=== PATIENT | female | born 1960 | race Caucasian/White ===

== ENCOUNTER → 2018-03-05 11:42 | Outpatient (CLI) | payer BC, OTHER, SELFPAY ==
--- NOTE | 2018-03-05 | DI.MG.S_ITS ---
BILATERAL DIGITAL SCREENING MAMMOGRAM 3D/2D WITH CAD: 03/05/2018 CLINICAL: Routine screening. Comparison is made to exams dated: 07/12/2016 mammogram and 06/22/2015 mammogram - [facility]. There are scattered fibroglandular elements in both breasts. Current study was also evaluated with a Computer Aided Detection (CAD) system. No significant masses, calcifications, or other findings are seen in either breast. There has been no significant interval change. IMPRESSION: NEGATIVE There is no mammographic evidence of malignancy. A 1 year screening mammogram is recommended. This exam was interpreted at Station ID: [id number]. NOTE: For mammograms, a report in lay terms will be sent to the patient. Approximately 15% of breast malignancies will not be visualized mammographically. In the management of a palpable breast mass, a negative mammogram must not discourage biopsy of a clinically suspicious lesion. Electronically Signed By: Garret tolentino/jeyson:03/06/2018 00:12:45 letter sent: Normal Exam ACR BI-RADS Category 1: Negative [id number]
== END ==
PROVIDERS: PCP Physician Assistant; Visit Provider Physician Assistant
DX: Z12.31 Encounter for screening mammogram for malignant neoplasm of breast (principal)
CPT/HCPCS: 77063; 77067

== ENCOUNTER → 2018-10-16 09:09 | Outpatient (CLI) | payer BC, OTHER, SELFPAY ==
--- NOTE | 2018-10-16 | DI.ECHO.S_ITS ---
[place] +---------+ [facility] +---------+ : : [address] : : : : [id number] : : : : Phone: [phone] Echocardiogram Report + + :Name: GIGI JAMES Study Date: 10/16/2018 Height: 68 in : :[facility] Exam Location: IS Weight: 235 lb : : Gender: Female BSA: 2.2 m2 : :: 1960 Age: 58 yrs BP: 140/65 mmHg: :Reason For Study: Ascending aorta Dilation/ Murmur : : Performed By: Shayna Page : :Referring: ODALYS HIDALGO : + + Interpretation Summary The ejection fraction is estimated to be 60-65%. There is no significant valvular heart disease. Compared to the prior echo report on 2017, there is no significant change. Procedure: A two-dimensional transthoracic echocardiogram with color flow and Doppler was performed. The study quality was technically adequate. Comparison is made with the echocardiogram of 07/03/2014. The patient was in normal sinus rhythm during the exam. Left Ventricle: The left ventricle is normal in size, wall thickness, and systolic function without any focal wall motion abnormalities. The ejection fraction is estimated to be 60-65%. Left ventricular wall motion is normal. Right Ventricle: The right ventricle is normal in size and function. Atria: Both atria are normal in size. There is no Doppler evidence for an interatrial shunt. Mitral Valve: The mitral valve is normal in structure and function. There is trace mitral regurgitation. Aortic Valve: The aortic valve is trileaflet. The aortic valve opens well. No aortic regurgitation is present. Tricuspid Valve: The tricuspid valve is normal in structure and function. There is a trace or physiologic amount of tricuspid regurgitation. Right ventricular systolic pressure is estimated to be 23 mmHg plus the clinically estimated CVP which cannot be estimated on this exam. Pulmonic Valve: The pulmonic valve is not well visualized. There is no pulmonic valvular regurgitation. Great Vessels: The aortic root is normal size. The ascending aorta is mildly enlarged. The pulmonary artery is not well visualized, but is probably normal size. The IVC does not appear dilated but does not appear to have respiratory collapse which suggests moderately high central venous pressure. The IVC has a measurement of 1.6 mm. Pericardium/ Pleura There is no pericardial effusion. There is no pleural effusion. MMode/2D Measurements & Calculations LVIDd: 4.2 cm Ao root diam: 3.3 cm LVIDs: 2.4 cm asc Aorta Diam: 3.8 cm FS: 43.8 % EPSS: 0.16 cm IVSd: 0.76 cm LVPWd: 0.77 cm LV palmer. diameter/BSA (cm/m^2): 1.9 LV sys. diameter/BSA (cm/m^2): 1.1 LA A2 area: 17.0 cm2 RA long axis: 4.3 cm LA A4 area: 20.1 cm2 RA area: 13.9 cm2 LA length (vol): 5.2 cm RA vol: 37.9 ml LA vol: 55.8 ml RA : 17.3 ml/m2 LA vol index: 25.5 ml/m2 IVC diam: 1.6 cm RVD1 (basal): 4.3 cm TAPSE: 2.0 cm Doppler Measurements & Calculations Ao V2 max: 148.2 cm/sec LVOT Max Elver: 105.7 cm/sec Ao V2 mean: 104.6 cm/sec LV V1 max P.5 mmHg Ao max P.8 mmHg LV V1 VTI: 21.3 cm Ao mean P.9 mmHg sev ratio: 0.73 Ao V2 VTI: 29.0 cm MV E max elver: 82.4 cm/sec TR max elver: 238.4 cm/sec MV A max elver: 89.3 cm/sec TR max P.7 mmHg MV E/A: 0.92 PA V2 max: 99.6 cm/sec Med Peak E' Elver: 5.5 cm/sec PA V2 mean: 66.5 cm/sec E/E' med: 15.1 PA mean P.0 mmHg Lat Peak E' Elver: 10.6 cm/sec PA Accel Time: 0.08 sec E/E' lat: 7.8 E/e' average: 11.4 MV dec time: 0.12 sec MV P1/2t: 35.8 msec MV P1/2t max elver: 82.6 cm/sec MVA(P1/2t): 6.1 cm2 Reading Physician:02:10 PM
== END ==
PROVIDERS: PCP Physician Assistant; Visit Provider Physician Assistant
DX: I77.810 Thoracic aortic ectasia (principal); R01.1 Cardiac murmur, unspecified
CPT/HCPCS: 93306

== ENCOUNTER → 2019-03-20 16:41 | Outpatient (CLI) | payer BC, OTHER, SELFPAY ==
--- NOTE | 2019-03-20 16:44 | DI.MG.S_ITS ---
BILATERAL DIGITAL SCREENING MAMMOGRAM 3D/2D WITH CAD: 03/20/2019 CLINICAL: Routine screening. Comparison is made to exams dated: 03/05/2018 mammogram - [facility], 07/12/2016 mammogram, and 06/22/2015 mammogram - [facility]. The tissue of both breasts is predominantly fatty. Current study was also evaluated with a Computer Aided Detection (CAD) system. No significant masses, calcifications, or other findings are seen in either breast. There has been no significant interval change. IMPRESSION: NEGATIVE There is no mammographic evidence of malignancy. A 1 year screening mammogram is recommended. This exam was interpreted at Station ID: [id number]. NOTE: For mammograms, a report in lay terms will be sent to the patient. Approximately 15% of breast malignancies will not be visualized mammographically. In the management of a palpable breast mass, a negative mammogram must not discourage biopsy of a clinically suspicious lesion. Electronically Signed By: Maria grover/jeyson:03/21/2019 13:18:54 letter sent: Normal Exam ACR BI-RADS Category 1: Negative [id number]
== END ==
PROVIDERS: PCP Physician Assistant; Visit Provider Physician Assistant
DX: Z12.31 Encounter for screening mammogram for malignant neoplasm of breast (principal)
CPT/HCPCS: 77063; 77067

== ENCOUNTER → 2020-07-10 10:32 | Outpatient (CLI) | payer BC, OTHER, SELFPAY ==
--- NOTE | 2020-07-10 | DI.MG.S_ITS ---
BILATERAL DIGITAL SCREENING MAMMOGRAM 3D/2D WITH CAD: 07/10/2020 CLINICAL: Routine screening. Comparison is made to exams dated: 03/20/2019 mammogram, 03/05/2018 mammogram - [facility], and 07/12/2016 mammogram - [facility]. The tissue of both breasts is predominantly fatty. Current study was also evaluated with a Computer Aided Detection (CAD) system. No significant masses, calcifications, or other findings are seen in either breast. There has been no significant interval change. IMPRESSION: NEGATIVE There is no mammographic evidence of malignancy. A 1 year screening mammogram is recommended. This exam was interpreted at Station ID: [id number]. NOTE: For mammograms, a report in lay terms will be sent to the patient. Approximately 15% of breast malignancies will not be visualized mammographically. In the management of a palpable breast mass, a negative mammogram must not discourage biopsy of a clinically suspicious lesion. Electronically Signed By: Jerry mccabe/jeyson:07/12/2020 08:56:37 letter sent: Normal Exam ACR BI-RADS Category 1: Negative [id number]
== END ==
PROVIDERS: PCP Physician Assistant; Referring Provider Physician Assistant; Visit Provider Physician Assistant
DX: Z12.31 Encounter for screening mammogram for malignant neoplasm of breast (principal)
CPT/HCPCS: 77063; 77067

== ENCOUNTER 2020-10-21 22:10 | Inpatient (IN) | payer OTHER, SELFPAY ==
[2020-10-21 22:26] VITALS: BP 171/74; PULSE 97; RESP 17; O2SAT 99
--- NOTE | 2020-10-21 22:57 | DI.RAD.S_ITS ---
PROCEDURE: XR CHEST 1V INDICATIONS: chest pain TECHNIQUE: One view of the chest was acquired. COMPARISON: None. FINDINGS: Surgical changes and devices: None. Lungs and pleura: Lungs are clear. No pleural effusions or pneumothorax. Mediastinum: Mediastinal contours appear normal. Heart size is normal. Bones and chest wall: No suspicious bony lesions. Overlying soft tissues appear unremarkable. IMPRESSION: No acute cardiopulmonary disease process. Dictated by: Katt Rivas MD, PhD on 10/22/2020 at 8:12 Approved by: Katt Rivas MD, PhD on 10/22/2020 at 8:12
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
[2020-10-21 23:26] LABS: Add Manual Diff / Slide Review NO; Basophils Absolute Auto 100 /uL (0-100); Basophils Percent Auto 0.4 % (0-2); Eosinophils Absolute Auto 0 /uL (0-450); Eosinophils Percent Auto 0.1 % (2-4); Hematocrit 36.8 % (36-46); Hemoglobin 11.9 g/dL (12.0-16.0); Lymphocytes Absolute Auto 1200 /uL (1100-4500); Mean Corpuscular HGB Conc 32.4 % (30-36); Mean Corpuscular Hemoglobin 28.7 PG (26-34); Mean Corpuscular Volume 88.6 fL (80-100); Monocytes Absolute Auto 1100 /uL (0-900); Monocytes Percent Auto 6.5 % (3-14); Neutrophils Absolute Auto 15100 /uL (1500-7000); Platelet Count 326 X10^3/uL (150-400); Red Blood Cell Count 4.15 X10^6/uL (4.0-5.2); Red Cell Distribution Width 14.8 % (11.6-14.8); White Blood Cell Count 17.5 X10^3/uL (4.5-11.0)
[2020-10-21] MEDS: ONDANSETRON 4 MG/2 ML INJ IV (23:32)
[2020-10-21] MEDS: ASPIRIN 81 MG CHEW TAB 324 MG PO (23:32)
[2020-10-21] MEDS: SODIUM CHLORIDE 0.9% 1,000 ML 150 ML IV (23:32)
[2020-10-21 23:35] LABS: Alanine Aminotransferase 30 IU/L (<35); Albumin 4.5 g/dL (3.5-5.0); Albumin Globulin Ratio 1.4 (1.0-2.8); Alkaline Phosphatase 74 U/L (38-126); Aspartate Aminotransferase 36 IU/L (14-36); BUN Creatinine Ratio 28.2 (6-22); Bilirubin Total 0.3 mg/dL (0.2-1.3); Blood Urea Nitrogen 29 mg/dL (7-17); Calcium 10.3 mg/dL (8.4-10.2); Carbon Dioxide 26 mmol/L (22-32); Chloride 96 mmol/L (98-107); Creatine Kinase 154 U/L (30-135); Estimated Glomerular Filt Rate 54.3 mL/min (>60); Globulin 3.3 g/dL (1.7-4.1); Glucose 191 mg/dL (80-110); HEMOLYSIS < 15 (0-50); Lipase 69 U/L (23-300); Sodium 133 mmol/L (137-145); Total Protein 7.8 g/dL (6.3-8.2)
[2020-10-21 23:42] VITALS: PULSE 90; RESP 51; O2SAT 100
[2020-10-21 23:46] LABS: Troponin I < 0.012 ng/mL (0.01-0.034)
[2020-10-21 23:50] LABS: CKMB % Relative Index 0.9 % (1.5-5.0); Creatine Kinase MB 1.45 ng/mL (<2.37)
--- NOTE | 2020-10-21 23:52 | DI.CT.S_ITS ---
PROCEDURE: CT ABDOMEN PELVIS W CON INDICATIONS: abdominal pain TECHNIQUE: After the administration of intravenous contrast, 5 mm thick sections acquired from the diaphragm to the symphysis. 5 mm coronal and sagittal reformats were acquired. For radiation dose reduction, the following was used: automated exposure control, adjustment of mA and/or kV according to patient size. COMPARISON: None FINDINGS: Image quality: Excellent. ABDOMEN: Lung bases: Lung bases are clear. 4 x 7 mm pleural based pulmonary nodule, extreme right lung base. Reference image 11/3. Heart size is normal. Trace pericardial effusion. Moderate coronary artery calcifications. Solid organs: Liver is normal in size and enhancement. Mild hepatic steatosis. Gallbladder contains multiple large gallstones. There is significant gallbladder wall thickening and edema. Findings are consistent with acute cholecystitis. Biliary system is non dilated. Pancreas enhances normally. Spleen is normal in size and enhancement. No adrenal nodules. Kidneys demonstrate normal size and enhancement, without hydronephrosis. Peritoneum and bowel: Bowel loops demonstrate normal wall thickness and caliber. Trace pelvic ascites. No free air or abscess cavity. Nodes and vessels: No retroperitoneal or mesenteric adenopathy by size criteria. Aorta and inferior vena cava are normal in size. Atherosclerotic calcification in the aorta and iliacs. Miscellaneous: No ventral hernias. PELVIS: Genitourinary: Bladder wall thickness is normal. Miscellaneous: No inguinal hernias or adenopathy. Bones: No suspicious bony lesions. No vertebral body compression fractures. Diffuse lumbar degenerative change. Canal stenosis at L4-L5. IMPRESSION: 1. Findings are highly suspicious for acute cholecystitis. 2. Coronary artery disease. 3. Mild hepatic steatosis. 4. Incidental note made of canal stenosis at L4-L5. Comment: Final report is concordant with preliminary interpretation provided by [facility]. Dictated by: Jesus Yañez M.D. on 10/22/2020 at 7:40 Approved by: Jesus Yañez M.D. on 10/22/2020 at 7:45
[2020-10-22] VITALS (27 sets, daily range): BP systolic 107–154; BP diastolic 49–84; PULSE 16–100; RESP 11–52; TEMP 36.4–37.9; O2SAT 80–100; BMI 36.8
--- NOTE | 2020-10-22 | PATH_ITS ---
[facility] Accession Number: [id number] . 01 Material submitted: . gallbladder - GALLBLADDER . 02 Diagnosis: Gallbladder, Cholecystectomy: Acute and chronic cholecystitis, cholesterolosis, and cholelithiasis. Serosa with fibrous adhesions and fibrinopurulent material. V 10/27/2020 1719 Local . 02 Electronically signed: . Jany Sharma MD, Pathologist NPI- [id number] . 01 Gross description: . The specimen is received in formalin, labeled gallbladder, and consists of a fragment of gallbladder measuring 13.5 x 4.2 x 4.0 cm in aggregate. The cystic duct measures 1.5 cm in diameter. The serosa is colon-pink to colon-white with fibrinous adhesions and purulent exudate. Opening reveals a red-brown, hemorrhagic, granular mucosa with adherent colon-green exudate. The wall thickness measures up to 0.9 cm. Five black multifaceted choleliths are identified within the specimen container ranging from 1.6 cm to 2.2 cm and measuring 6.0 x 4.0 x 3.0 cm in aggregate. Statistical Machine Mechanic sections are submitted, to include the en face cystic duct margin (blue), in cassettes A1-A2. ([id number]) /R 10/23/2020 1524 Local . 02 Pathologist provided ICD-10: K81.0, K80.60 . 02 CPT . 281373 Performed at: 01 [facility] [address] [id number] MD Haroon Mendez MD Phone: [phone] Performed at: 02 [facility] [address] [place], [place] [id number] MD Vianney Rose MD Phone: [phone]
[2020-10-22 00:03] LABS: Lactate (Lactic Acid) 3.1 mmol/L (0.7-2.1)
[2020-10-22] MEDS: KETOROLAC 30 MG/ML VIAL IV (00:42)
[2020-10-22 01:55] LABS: Reflexed Lactate in 2 Hours Y
[2020-10-22 02:07] LABS: Bacteria Urine None Seen; RBC Urine None Seen (0-5/HPF); WBC Urine None Seen (0-5/HPF)
--- NOTE | 2020-10-22 02:16 | DI.US.S_ITS ---
PROCEDURE: US ABDOMEN LIMITED INDICATIONS: RUQ PAIN TECHNIQUE: Real-time focused scanning was performed of the abdomen, with image documentation. COMPARISON: None. FINDINGS: Liver is normal in size. Liver is diffusely echogenic. No focal hepatic mass lesions. Non mobile gallstones are noted. Largest gallstone measures 2.5 centimeters. Gallbladder wall is thickened to 7.9 millimeters. Pericholecystic fluid is noted. No sonographic Mak sign reported. Biliary tree is nondilated. Common bile duct measures 6.3 millimeters. Head and body pancreas is sonographically normal. Tail of pancreas is obscured by bowel gas and cannot be evaluated. IMPRESSION: 1. Cholelithiasis with gallbladder wall thickening and pericholecystic fluid compatible with cholecystitis. 2. Echogenic liver. Finding typically represents fatty infiltration; however, finding is nonspecific and correlation with clinical and laboratory findings is recommended to exclude other etiologies including hepatic cirrhosis. Dictated by: Katt Rivas MD, PhD on 10/22/2020 at 7:54 Approved by: Katt Rivas MD, PhD on 10/22/2020 at 7:55
[2020-10-22 02:17] LABS: Appearance Urine UA CLOUDY; Bilirubin Urine UA NEGATIVE (NEGATIVE); Color Urine UA YELLOW; Glucose Urine UA NEGATIVE (Negative); Ketones Urine UA NEGATIVE (NEGATIVE); Leukocyte Esterase Urine UA NEGATIVE (NEGATIVE); Nitrite Urine UA NEGATIVE (Negative); Occult Blood Urine UA NEGATIVE (Negative); Protein Urine UA NEGATIVE (Negative); Specific Gravity Urine UA 1.025 (1.000-1.035); Squamous Epithelial Cell Urine 0-1 /HPF (0-5/HPF); Urobilinogen Urine UA 0.2 E.U./dL (0.2)
[2020-10-22 02:18] LABS: Amorphous Sediment Urine 3+; Culture Indicated Urine Cult Not Indicated
[2020-10-22 02:30] LABS: Lactate 2HR (Lactic Acid Rflx) 2.9 mmol/L (0.7-2.1)
[2020-10-22 03:22] LABS: COVID19 - ADMIT (NP swab/PCR) Negative (Negative)
[2020-10-22] MEDS: SODIUM CHLORIDE 0.9% 1,000 ML 150 ML IV (04:00)
--- NOTE | 2020-10-22 04:33 | PC.NURSE ---
Admit note: Patient admitted to AC, awake, alert, and pleasantly cooperative. Up OOB to BR on arrival from ED, ambulated independently, steady gait. IVF initiated. Oriented to room, environment, and plan of care. No c/o pain or nausea. Spouse Tito at bedside providing supportive care.
[2020-10-22] MEDS: PIPERACILLIN-TAZO 4.5 GM/100 ML FROZ.PIGGY IV (04:43)
[2020-10-22] MEDS: MORPHINE 2 MG/ML INJ IV (06:43)
--- NOTE | 2020-10-22 07:32 | P.HP_ITS ---
History of Present Illness History of Present Illness Date Patient Seen: 10/22/20 Time Patient Seen: 07:44 Chief complaint: middle back pain, moves to sides Narrative: 60-year-old woman history of ayt-fkvagqa-huxzrjyca diabetes, hypertension, obesity admitted to the hospital for acute cholecystitis. Yesterday she developed mid back pain and associated nausea with emesis. At admission, WBC 18, normal LFTs and bilirubin, negative cardiac markers. Ultrasound RUQ and CT A/P demonstrates acute cholecystitis with a non mobile gallstones within the neck gallbladder. No history of prior similar episodes. She received IV fluid resuscitation and Zosyn. Currently abdominal pain significantly improved no further nausea or emesis since admission. Prior abdominal surgery includes a laparoscopic ovarian cyst drainage. Not on anticoagulation but takes aspirin 81 mg intermittently at home and recieved 325 ASA in ER last night. Patient History Medical History Diabetes Hyperlipidemia Hypertension Family & Social History Social History: household members spouse Prior Living Arrangements House Safety & Behavioral: Feels Safe in Current Yes Environment Been Physically Hurt or No Threatened By a Person Tobacco & Substance use: Smoking Status Never smoker alcohol intake frequency a few times a month Substance Use Type does not use Meds Home Medications and Allergies Home Medications Medication Instructions Recorded Confirmed Type hydrochlorothiazide 25 mg PO DAILY 10/21/20 10/21/20 History losartan 50 mg PO DAILY 10/21/20 10/21/20 History metformin 1,000 mg PO BID 10/21/20 10/21/20 History pravastatin 20 mg PO DAILY 10/21/20 10/21/20 History tolterodine 4 mg PO DAILY 10/21/20 10/21/20 History Allergies Allergy/AdvReac Type Severity Reaction Status Date / Time erythromycin base Allergy Mild RASH HIVES Verified 10/21/20 22:35 [ERYTHROMYCIN BASE] Sulfa (Sulfonamide Allergy Mild RASH Verified 10/21/20 22:35 Antibiotics) [SULFA (SULFONAMIDE ANTIBIOTICS)] Review of Systems Review of Systems ROS: Yes All systems reviewed with the patient and are negative except as otherwise documented Exam Vital Signs (past 8 hours): - 10/21/20 23:42 10/22/20 00:00 10/22/20 00:03 Temperature Pulse Rate 90 93 H 92 H Respiratory Rate 51 H 36 H 28 H Blood Pressure 148/65 H Pulse Oximetry 100 100 100 10/22/20 00:32 10/22/20 01:00 10/22/20 01:36 Temperature Pulse Rate 91 H 84 91 H Respiratory Rate 31 H 14 29 H Blood Pressure Pulse Oximetry 100 99 10/22/20 02:00 10/22/20 02:30 10/22/20 03:00 Temperature Pulse Rate 82 92 H 90 Respiratory Rate 52 H Blood Pressure Pulse Oximetry 95 99 99 10/22/20 04:10 Temperature 97.6 F Pulse Rate 100 H Respiratory Rate 16 Blood Pressure 145/60 H Pulse Oximetry 99 Oxygen Delivery Method Room Air Oxygen Flow Rate 0 Narrative Exam Narrative: GENERAL-well developed adult woman, no acute distress HEENT-no scleral icterus, hearing intact NECK-no JVD, trachea midline CVS- regular rate, no peripheral edema RESP-unlabored respiratory effort, no audible wheezing GI-mild tenderness RUQ no peritonitis MSK-no cyanosis or clubbing, extremities without deformity SKIN-warm, dry NEURO-alert and oriented, no focal deficits PYSCH-Appropriate mood and affect Objective Labs Result Diagrams: 10/21/20 23:15 10/21/20 23:15 Labs: Laboratory Results - last 24 hr 10/21/20 10/21/20 10/21/20 23:15 23:15 23:15 WBC 17.5 H RBC 4.15 Hgb 11.9 L Hct 36.8 MCV 88.6 MCH 28.7 MCHC 32.4 RDW 14.8 Plt Count 326 Neut % (Auto) 86.0 H Lymph % (Auto) 7.0 L [place] % (Auto) 6.5 Eos % (Auto) 0.1 L Baso % (Auto) 0.4 Neut # (Auto) 69853 H Lymph # (Auto) 1200 [place] # (Auto) 1100 H Eos # (Auto) 0 Baso # (Auto) 100 Sodium 133 L Potassium 4.0 Chloride 96 L Carbon Dioxide 26 BUN 29 H Creatinine 1.03 Estimated GFR 54.3 L BUN/Creatinine Ratio 28.2 H Glucose 191 H Lactate 3.1 H Calcium 10.3 H Total Bilirubin 0.3 AST 36 ALT 30 Alkaline Phosphatase 74 Total Creatine Kinase 154 H CK-MB (CK-2) 1.45 CK-MB (CK-2) Rel Index 0.9 L Troponin I < 0.012 Total Protein 7.8 Albumin 4.5 Globulin 3.3 Albumin/Globulin Ratio 1.4 Lipase 69 Urine Color Urine Appearance Urine pH Ur Specific [place] Urine Protein Urine Glucose (UA) Urine Ketones Urine Occult Blood Urine Nitrate Urine Bilirubin Urine Urobilinogen Ur Leukocyte Esterase Urine RBC Urine WBC Ur Squamous Epith Cells Amorphous Sediment Urine Bacteria Ur Culture Indicated? SARS-CoV-2 (PCR) 10/22/20 10/22/20 10/22/20 00:34 02:15 02:34 WBC RBC Hgb Hct MCV MCH MCHC RDW Plt Count Neut % (Auto) Lymph % (Auto) [place] % (Auto) Eos % (Auto) Baso % (Auto) Neut # (Auto) Lymph # (Auto) [place] # (Auto) Eos # (Auto) Baso # (Auto) Sodium Potassium Chloride Carbon Dioxide BUN Creatinine Estimated GFR BUN/Creatinine Ratio Glucose Lactate 2.9 H Calcium Total Bilirubin AST ALT Alkaline Phosphatase Total Creatine Kinase CK-MB (CK-2) CK-MB (CK-2) Rel Index Troponin I Total Protein Albumin Globulin Albumin/Globulin Ratio Lipase Urine Color Yellow Urine Appearance Cloudy Urine pH 5.0 Ur Specific [place] 1.025 Urine Protein Negative Urine Glucose (UA) Negative Urine Ketones Negative Urine Occult Blood Negative Urine Nitrate Negative Urine Bilirubin Negative Urine Urobilinogen 0.2 Ur Leukocyte Esterase Negative Urine RBC None seen Urine WBC None seen Ur Squamous Epith Cells 0-1 /hpf Amorphous Sediment 3+ Urine Bacteria None seen Ur Culture Indicated? Cult not indicated SARS-CoV-2 (PCR) Negative Assessment & Plan Assessment and plan (1) Acute cholecystitis: Status: Acute Assessment & Plan narrative: 60-year-old female history obesity, hypertension, and lop-ecceazd-ouzswsass diabetes admitted with acute cholecystitis. CT abdomen pelvis and right upper quadrant ultrasound reviewed demonstrates acute cholecystitis there was a non mobile stone within the neck of the gallbladder. Laboratory studies significant for leukocytosis of 18 normal total bilirubin and LFTs. Recommended that we proceed with a laparoscopic cholecystectomy. Technical details of the operation were discussed. Operative risks including bleeding, infection, damage to surrounding structures, bile leak, conversion to open were discussed. Postoperative recovery was discussed. I told her that she is at slightly increased risk of bleeding given that she received aspirin recently. Questions have been answered she is in agreement with this plan. -NPO -IV fluids -Sliding scale insulin -Zosyn 3.375 g q.6 -SCDs
[2020-10-22 09:12] LABS: Add Manual Diff / Slide Review NO; Basophils Absolute Auto 0 /uL (0-100); Basophils Percent Auto 0.3 % (0-2); Eosinophils Absolute Auto 0 /uL (0-450); Eosinophils Percent Auto 0.1 % (2-4); Hematocrit 32.9 % (36-46); Hemoglobin 10.5 g/dL (12.0-16.0); Lymphocytes Absolute Auto 1300 /uL (1100-4500); Mean Corpuscular HGB Conc 31.8 % (30-36); Mean Corpuscular Hemoglobin 28.3 PG (26-34); Mean Corpuscular Volume 89.2 fL (80-100); Monocytes Absolute Auto 1200 /uL (0-900); Monocytes Percent Auto 8.1 % (3-14); Neutrophils Absolute Auto 11800 /uL (1500-7000); Neutrophils Percent Auto 82.5 % (50-75); Platelet Count 266 X10^3/uL (150-400); Red Blood Cell Count 3.69 X10^6/uL (4.0-5.2); Red Cell Distribution Width 14.8 % (11.6-14.8); White Blood Cell Count 14.4 X10^3/uL (4.5-11.0)
[2020-10-22 09:14] LABS: Alanine Aminotransferase 27 IU/L (<35); Albumin 3.8 g/dL (3.5-5.0); Albumin Globulin Ratio 1.3 (1.0-2.8); Alkaline Phosphatase 58 U/L (38-126); Aspartate Aminotransferase 36 IU/L (14-36); BUN Creatinine Ratio 25.7 (6-22); Bilirubin Total 0.7 mg/dL (0.2-1.3); Blood Urea Nitrogen 28 mg/dL (7-17); Carbon Dioxide 28 mmol/L (22-32); Chloride 99 mmol/L (98-107); Estimated Glomerular Filt Rate 50.9 mL/min (>60); Globulin 2.9 g/dL (1.7-4.1); Glucose 157 mg/dL (80-110); HEMOLYSIS 22 (0-50); Potassium 4.1 mmol/L (3.4-5.1); Sodium 133 mmol/L (137-145); Total Protein 6.7 g/dL (6.3-8.2)
[2020-10-22] MEDS: PIPERACILLIN-TAZO 3.375 GM/50 ML FROZ.PIGGY IV (09:39)
--- NOTE | 2020-10-22 09:59 | PM.PREOP ---
Pre-operative Note COVID-19 COVID-19 status: Negative Result date/Date tested (Pos, Neg/Pending): 10/22/20 Interval Note History & Physical reviewed/Exam performed by Physician: Yes Changes to H&P: Yes H&P completed within 30 days and has changed as indicated here:: I discussed the operation with her including rationale and the risks of bleeding, infection, bile leakage, hernia, injury to internal organs in ducts which would probably require major operation to repair. She appears to understand wishes to proceed. I talked to her about a cholangiogram but none is planned at this time. She has normal labs and the ultrasound suggests a stone impacted in the neck of the gallbladder which would prevent passage of other material.
[2020-10-22] MEDS: ENOXAPARIN 40 MG/0.4 ML SYRINGE SUBCUT (10:30)
[2020-10-22] MEDS: HYDROMORPHONE 1 MG INJ IV (11:06)
[2020-10-22] MEDS: CEFAZOLIN 2 GM/100 ML FROZ.PIGGY IV (15:48)
[2020-10-22] MEDS: LACTATED RINGERS 1,000 ML 42 ML IV ×2 (15:50→17:04)
--- NOTE | 2020-10-22 16:25 | SUR.OPER ---
Supine on padded OR bed, head on pillow, arms secured on padded arm boards at <90 degrees abduction, legs uncrossed, safety belt at thigh, tape over blanket over lower legs.
[2020-10-22] MEDS: BUPIVACAINE 0.5% (PF) VIAL 30 ML INJ (16:49)
--- NOTE | 2020-10-22 18:32 | P.OP_ITS ---
Operative Date/Time/Diagnoses Date of procedure: 10/22/20 Time of procedure: 18:33 Pre-op diagnosis: Acute cholecystitis with cholelithiasis Post-op diagnosis: same Procedure & Clinicians Procedure: Laparoscopic cholecystectomy Same procedure as scheduled: Yes Indications: Diabetic Patient with an inflamed gallbladder febrile and large gallstones. Surgeon: Otilio Granados Click Yes if Unassisted: Yes Anesthesia Type: General Operative Notes Findings: Multiple very large stones in a incredibly thick walled gallbladder. Very difficult operation. See details below. Closure Type: primary Specimen(s): other (Gallbladder and stones) Applied: drain(s) (7 mm Mohan-De Leon placed in the gallbladder fossa brought out through the lateral-most port site) Estimated Blood Loss (mL): 10 Blood products transfused: none Procedure in detail: The patient was placed supine on the operating room table and underwent general endotracheal anesthesia. The patient was prepped and draped in the usual fashion. Local anesthetic was infiltrated above the umbilicus and an incision made and carried down through fascia into the peritoneal cavity. Stay sutures of 0 Vicryl were placed in the fascia. A 12 mm port was placed. The abdomen was insufflated. The patient was repositioned. Local anesthetic was infiltrated in 3 areas under the right costal margin and 3 small incisions made followed by placing 3 5 mm ports under direct laparoscopic camera vision internally. The gallbladder tensely distended and had to be aspirated of fluid which was cultured. It Was then grasped and elevated. Dissection was begun near its end. I could see the end of the gallbladder but not very well. It was too long, her size made it difficult to retract, and there was marked inflammation at the end of the gallbladder. Therefore I decided to take it down from above using a Harmonic scalpel/Thunderbeat. I carefully dissected the gallbladder out of the bed of the liver. About nursing home down I decided to divide the gallbladder so that I could use the lower part to lift the gallbladder and see the end better and also to remove the stones which I felt were lodged in the end of the gallbladder and making it difficult to dissect here.. After dividing the gallbladder and removing the internal stones I placed some to the side. These were all large flat faceted stones. I could see down into the gallbladder and see where it ended. Using this and the external markers I dissected further down along the gallbladder till only the cystic duct and possibly the cystic artery was left tethering the gallbladder to the patient. I cinched and 0 PDS loop down along this and then cut the gallbladder above this loop using laparoscopic Metzenbaum scissors. There was absolutely no bleeding from the gallbladder wall meaning I had successfully divi ded the artery and controlled it. The gallbladder having been detached and into pieces was placed in a bag. I attempted to place the stones in as well but they were too large and the bag was taken up entirely but he had gall bladder. Therefore 2nd bag was inserted and the stones were placed in it to remove them. The bag containing the gallbladder and the bag containing the stones were separately pulled up to the umbilical port and the contents of each bag removed through the umbilical port. I reinserted the ports and irrigated and suctioned free the fluid from the abdomen including from the pelvis. A drain was placed in the gallbladder fossa and brought out through the lateral-most port. This was a 7 mm Mohan-De Leon. It was secured with a 2 0 PDS suture. The ports were all removed. The port sites were all irrigated. The stay sutures at the umbilicus were elevated. A 2 0 PDS suture was placed between them. The Vicryl and PDS sutures were then tied. The skin in all areas was closed with interrupted 4 0 Vicryl subcuticular stitches. Steri-Strips and Mastisol were applied. Band-Aids were placed and the patient was awakened, extubated and taken to the recovery area in good condition. Complications: none Post-operative Condition: stable Disposition: PACU Plan for aftercare: Admit for IV antibiotics.
[2020-10-22] MEDS: INSULIN LISPRO 100 UNIT/ML 3ML VIAL SUBCUT ×2 (19:10→21:39)
[2020-10-22] MEDS: LACTATED RINGERS 1,000 ML 125 ML IV (20:32)
--- NOTE | 2020-10-22 21:31 | SUR.PHASEI ---
Late entry: Pt arrived needing chin lift for patency of aoirway. Dr. Oneil placed oral airway, 02 to airway. Once pt more awake airway removed and 02 placed at 4 then weaned to 2/l. Pt w/o pain, eating ice chips. Belly soft, dressing with drain has some drainage and it was encircled. Pt transfered up to room place on 2/l 02 and left in stable condition. Bed low, locked SCD's on and call light in reach, pt instructed to call before getting oob.
[2020-10-22] MEDS: KETOROLAC 30 MG/ML VIAL 15 MG IV (23:42)
--- NOTE | 2020-10-23 00:41 | PC.NURSE ---
Addendum entered by Kim Merino R.N. 10/23/20 05:56: Noted op report indicates patient is to be on antibiotics but none ordered. Dr Granados contacted and informed of fluid culture results. See new order. Addendum entered by Kim Merino R.N. 10/23/20 02:57: Medicated with IV Dilaudid for complaint of 5/10 incisional pain. Noted gallbladder fluid culture is growing gram + cocci on gm stain so placed on contact isolation. Patient informed Original Note: patient is alert and oriented. Breath sounds CTA with RA sat of 92%. HRR. BP elevated at 140/65 and has been trending high. Denies nausea. BT hypoactive and patient denies flatus since surgery. Bandaid dressings to abdomen are CDI. Dressing to DAVIS site is CDI and DAVIS is intact and compressed with serosanguinous drainage in bulb. Denies dysuria, frequency or urgency with urination. Is able to turn herself in bed. Gets up to bathroom with SBA. Chronic neuropathy in bilateral feet. Wearing bilateral calf SCD's. Complained of 4/10 abdominal pain and was medicated with Toradol and is now asleep. Blister/bruise noted on left great toe. Fall risk score is moderate but patient is calling appropriately for assistance when getting out of bed so alarm is not being used at this time.
[2020-10-23] MEDS: HYDROMORPHONE 1 MG INJ IV (02:52)
[2020-10-23 03:00] VITALS: BP 120/67; PULSE 88; RESP 16; TEMP 36.7; O2SAT 98
[2020-10-23] MEDS: LACTATED RINGERS 1,000 ML 125 ML IV ×3 (04:40→20:34)
[2020-10-23 05:05] LABS: Add Manual Diff / Slide Review NO; Basophils Absolute Auto 100 /uL (0-100); Basophils Percent Auto 0.6 % (0-2); Eosinophils Absolute Auto 0 /uL (0-450); Hematocrit 29.4 % (36-46); Hemoglobin 9.7 g/dL (12.0-16.0); Lymphocytes Absolute Auto 1200 /uL (1100-4500); Lymphocytes Percent Auto 8.4 % (25-40); Mean Corpuscular HGB Conc 32.9 % (30-36); Mean Corpuscular Volume 88.4 fL (80-100); Monocytes Absolute Auto 1200 /uL (0-900); Monocytes Percent Auto 8.2 % (3-14); Neutrophils Absolute Auto 12200 /uL (1500-7000); Neutrophils Percent Auto 82.8 % (50-75); Platelet Count 248 X10^3/uL (150-400); Red Blood Cell Count 3.33 X10^6/uL (4.0-5.2); Red Cell Distribution Width 14.6 % (11.6-14.8); White Blood Cell Count 14.7 X10^3/uL (4.5-11.0)
[2020-10-23 05:23] LABS: Alanine Aminotransferase 71 IU/L (<35); Albumin 3.2 g/dL (3.5-5.0); Albumin Globulin Ratio 1.1 (1.0-2.8); Alkaline Phosphatase 54 U/L (38-126); Aspartate Aminotransferase 80 IU/L (14-36); BUN Creatinine Ratio 21.1 (6-22); Bilirubin Total 0.4 mg/dL (0.2-1.3); Blood Urea Nitrogen 24 mg/dL (7-17); Calcium 8.4 mg/dL (8.4-10.2); Carbon Dioxide 27 mmol/L (22-32); Chloride 100 mmol/L (98-107); Estimated Glomerular Filt Rate 48.3 mL/min (>60); Globulin 2.8 g/dL (1.7-4.1); Glucose 154 mg/dL (80-110); HEMOLYSIS < 15 (0-50); Potassium 4.1 mmol/L (3.4-5.1); Sodium 133 mmol/L (137-145)
[2020-10-23] MEDS: PIPERACILLIN-TAZO 3.375 GM/50 ML FROZ.PIGGY IV ×3 (05:53→21:32)
[2020-10-23] MEDS: KETOROLAC 30 MG/ML VIAL 15 MG IV ×2 (07:46→20:32)
[2020-10-23 08:17] VITALS: BP 139/58; PULSE 98; RESP 16; TEMP 37.2; O2SAT 94
[2020-10-23] MEDS: GABAPENTIN 300 MG CAPSULE PO ×2 (08:51→20:34)
[2020-10-23] MEDS: LOSARTAN 50 MG TABLET PO (08:51)
[2020-10-23] MEDS: ENOXAPARIN 40 MG/0.4 ML SYRINGE SUBCUT (08:51)
[2020-10-23] MEDS: PRAVASTATIN 20 MG TABLET PO (08:51)
[2020-10-23] MEDS: TOLTERODINE LA 4 MG PO (08:51)
[2020-10-23] MEDS: hydroCHLOROthiazide 25 MG TABLET PO (08:51)
[2020-10-23] MEDS: INSULIN LISPRO 100 UNIT/ML 3ML VIAL SUBCUT ×3 (08:53→17:21)
--- NOTE | 2020-10-23 10:39 | PM.PNPO.1 ---
Subjective Subjective Date Patient Seen: 10/23/20 Time Patient Seen: 10:39 Interval history: Patient is woman here postop removal of a very inflamed gallbladder. She has a drain in place. She is feeling better than yesterday. Feels little sore. Tolerating p.o.. Exam Vital Signs (past 8 hours): - 10/23/20 03:00 10/23/20 08:17 Temperature 98.1 F 98.9 F Pulse Rate 88 98 H Respiratory Rate 16 16 Blood Pressure 120/67 139/58 L Pulse Oximetry 98 94 Oxygen Delivery Method Room Air Oxygen Flow Rate 0 Narrative Exam Narrative: Cooperative in no apparent distress. Walking in the tapia when I saw her. She returned to her room. Her lungs are clear to auscultation. Moving air well. Heart a little rapid regular rate and rhythm without murmur gallop. Abdomen is protuberant soft. Band-Aids are dry. Drainage is serosanguineous. No evidence of bile seen. Objective Labs Result Diagrams: 10/23/20 04:51 10/23/20 04:51 Labs: Laboratory Results - last 24 hr 10/23/20 10/23/20 04:51 04:51 WBC 14.7 H RBC 3.33 L Hgb 9.7 L Hct 29.4 L MCV 88.4 MCH 29.0 MCHC 32.9 RDW 14.6 Plt Count 248 Neut % (Auto) 82.8 H Lymph % (Auto) 8.4 L [place] % (Auto) 8.2 Eos % (Auto) 0.0 L Baso % (Auto) 0.6 Neut # (Auto) 45702 H Lymph # (Auto) 1200 [place] # (Auto) 1200 H Eos # (Auto) 0 Baso # (Auto) 100 Sodium 133 L Potassium 4.1 Chloride 100 Carbon Dioxide 27 BUN 24 H Creatinine 1.14 H Estimated GFR 48.3 L BUN/Creatinine Ratio 21.1 Glucose 154 H Calcium 8.4 Total Bilirubin 0.4 AST 80 H ALT 71 H Alkaline Phosphatase 54 Total Protein 6.0 L Albumin 3.2 L Globulin 2.8 Albumin/Globulin Ratio 1.1 PFSH Medical History Diabetes Hyperlipidemia Hypertension Social History household members: spouse Smoking Status: Never smoker alcohol intake: current Assessment & Plan Post-op Postoperative Procedures: Procedures Operation Date: 10/22/20 14:30 Actual Procedures Side Surgeon p Laparoscopic Cholecystectomy Not Applicable Otilio Granados MD Postoperative status: doing well Postoperative status narrative: Sugars are little elevated. Continue sliding scale along with medications. Continue drainage for now. Can probably come out tomorrow. Postoperative plan narrative: Awaiting results of cultures so that we can taper the antibiotic choice. Patient should still remain at least 1 more day for additional antibiotics given her status as a diabetic that is not well controlled at this time and the fact that she has a positive culture of her gallbladder. I doubt this is MRSA. Is more likely to be a strep organism. Therefore I will not broaden her coverage to include MRSA coverage. However if the cultures positive I would obviously re think that.
[2020-10-23 11:00] VITALS: O2SAT 94
[2020-10-23] MEDS: BISACODYL 10 MG SUPP PR (11:03)
[2020-10-23 12:00] VITALS: BP 137/73; PULSE 82; RESP 16; TEMP 37.1; O2SAT 94
[2020-10-23 16:00] VITALS: BP 142/69; PULSE 105; RESP 18; TEMP 37.4; O2SAT 93
[2020-10-23] MEDS: METFORMIN HCL 500 MG TABLET 1000 MG PO (17:32)
[2020-10-23 20:00] VITALS: BP 148/76; PULSE 110; RESP 18; TEMP 37.7; O2SAT 93
[2020-10-23] MEDS: PANTOPRAZOLE 40 MG VIAL 20 MG IV (21:33)
[2020-10-24] VITALS (9 sets, daily range): BP systolic 116–146; BP diastolic 62–77; PULSE 84–104; RESP 16–18; TEMP 36–37.1; O2SAT 95–99
--- NOTE | 2020-10-24 01:13 | PC.NURSE ---
Addendum entered by Kim Merino R.N. 10/24/20 06:03: Drainage already saturating new, reinforced dressing so dressing completely changed; DAVIS drain site covered with gauze 4x4's and ABD pad. 40cc serosanguinous drainage emptied from DAVIS. Addendum entered by Kim Merino R.N. 10/24/20 05:36: DAVIS dressing leaking so reinforced. Original Note: patient is alert and oriented. Breath sounds CTA with RA sat of 95%. HRR but tachy in low 100's. BP elevated at 146/65 consistent with previous readings. Denies nausea. Abdominal tenderness but states pain is 2-3/10 and declines pain medication but does have ice pack for comfort. DAVIS intact and compressed with serosanguinous drainage noted; DAVIS dressing with moderate amount dried drainage noted. Bandaid dressings are CDI. Abdomen is soft but tender. Has BT in all quads and states she has been passing flatus. Denies dysuria, frequency or urgency with urination. Is up independent to the bathroom but verbalizes she will call for assistance if dizzy or lightheaded when sitting up. Declines use of SCD's so reminded to ankle wave. Fall risk score is moderate. Remains on contact isolation until culture results finalized.
[2020-10-24] MEDS: KETOROLAC 30 MG/ML VIAL 15 MG IV (02:55)
[2020-10-24] MEDS: LACTATED RINGERS 1,000 ML 125 ML IV (03:54)
[2020-10-24 05:16] LABS: Add Manual Diff / Slide Review NO; Basophils Absolute Auto 100 /uL (0-100); Basophils Percent Auto 0.5 % (0-2); Eosinophils Absolute Auto 0 /uL (0-450); Eosinophils Percent Auto 0.2 % (2-4); Hematocrit 27.2 % (36-46); Hemoglobin 9.1 g/dL (12.0-16.0); Lymphocytes Absolute Auto 1400 /uL (1100-4500); Lymphocytes Percent Auto 11.8 % (25-40); Mean Corpuscular HGB Conc 33.3 % (30-36); Mean Corpuscular Hemoglobin 29.5 PG (26-34); Mean Corpuscular Volume 88.6 fL (80-100); Monocytes Absolute Auto 900 /uL (0-900); Monocytes Percent Auto 7.2 % (3-14); Neutrophils Absolute Auto 9600 /uL (1500-7000); Neutrophils Percent Auto 80.3 % (50-75); Platelet Count 231 X10^3/uL (150-400); Red Blood Cell Count 3.07 X10^6/uL (4.0-5.2)
[2020-10-24 05:22] LABS: Alanine Aminotransferase 84 IU/L (<35); Albumin 3.1 g/dL (3.5-5.0); Albumin Globulin Ratio 1.1 (1.0-2.8); Alkaline Phosphatase 82 U/L (38-126); Aspartate Aminotransferase 87 IU/L (14-36); BUN Creatinine Ratio 16.5 (6-22); Bilirubin Total 1.1 mg/dL (0.2-1.3); Blood Urea Nitrogen 20 mg/dL (7-17); Calcium 8.2 mg/dL (8.4-10.2); Carbon Dioxide 23 mmol/L (22-32); Chloride 98 mmol/L (98-107); Estimated Glomerular Filt Rate 45.1 mL/min (>60); Globulin 2.7 g/dL (1.7-4.1); Glucose 174 mg/dL (80-110); HEMOLYSIS < 15 (0-50); Sodium 128 mmol/L (137-145); Total Protein 5.8 g/dL (6.3-8.2)
[2020-10-24] MEDS: PIPERACILLIN-TAZO 3.375 GM/50 ML FROZ.PIGGY IV ×2 (05:35→14:28)
[2020-10-24] MEDS: INSULIN LISPRO 100 UNIT/ML 3ML VIAL SUBCUT ×3 (08:12→17:09)
[2020-10-24] MEDS: ENOXAPARIN 40 MG/0.4 ML SYRINGE SUBCUT (08:18)
[2020-10-24] MEDS: GABAPENTIN 300 MG CAPSULE PO (08:18)
[2020-10-24] MEDS: PANTOPRAZOLE DR 20 MG TABLET PO (08:18)
[2020-10-24] MEDS: PRAVASTATIN 20 MG TABLET PO (08:18)
[2020-10-24] MEDS: METFORMIN HCL 500 MG TABLET 1000 MG PO ×2 (08:19→17:53)
[2020-10-24] MEDS: TOLTERODINE LA 4 MG PO (08:19)
[2020-10-24] MEDS: hydroCHLOROthiazide 25 MG TABLET PO (08:21)
[2020-10-24] MEDS: LOSARTAN 50 MG TABLET PO (08:25)
[2020-10-24] MEDS: OXYCODONE/ACETAMINOPHEN 5/325 TABLET 2 TAB PO ×3 (09:08→16:36)
--- NOTE | 2020-10-24 11:09 | P.PN_ITS ---
Subjective Subjective Date Patient Seen: 10/24/20 Interval history: no acute events. Tolerated full liquids, minimal pain Exam Vital Signs (past 8 hours): - 10/24/20 05:00 10/24/20 08:23 10/24/20 08:25 Temperature 98.8 F 97.2 F L Pulse Rate 98 H 89 89 Respiratory Rate 16 16 Blood Pressure 133/67 130/63 138/69 Pulse Oximetry 95 99 10/24/20 09:00 Temperature Pulse Rate Respiratory Rate Blood Pressure Pulse Oximetry 99 Oxygen Delivery Method Room Air Oxygen Flow Rate 0 Narrative Exam Narrative: gen-adult female no acute distress abdomen-drain sero sanginous appropriately tender to palpation Objective Labs Result Diagrams: 10/24/20 05:00 10/24/20 05:00 Labs: Laboratory Results - last 24 hr 10/24/20 10/24/20 05:00 05:00 WBC 12.0 H RBC 3.07 L Hgb 9.1 L Hct 27.2 L MCV 88.6 MCH 29.5 MCHC 33.3 RDW 15.0 H Plt Count 231 Neut % (Auto) 80.3 H Lymph % (Auto) 11.8 L [place] % (Auto) 7.2 Eos % (Auto) 0.2 L Baso % (Auto) 0.5 Neut # (Auto) 9600 H Lymph # (Auto) 1400 [place] # (Auto) 900 Eos # (Auto) 0 Baso # (Auto) 100 Sodium 128 L Potassium 4.0 Chloride 98 Carbon Dioxide 23 BUN 20 H Creatinine 1.21 H Estimated GFR 45.1 L BUN/Creatinine Ratio 16.5 Glucose 174 H Calcium 8.2 L Total Bilirubin 1.1 AST 87 H ALT 84 H Alkaline Phosphatase 82 Total Protein 5.8 L Albumin 3.1 L Globulin 2.7 Albumin/Globulin Ratio 1.1 PFSH Medical History Diabetes Hyperlipidemia Hypertension Social History household members: spouse Smoking Status: Never smoker alcohol intake: current Assessment & Plan Post-op Postoperative Procedures: Procedures Operation Date: 10/22/20 14:30 Actual Procedures Side Surgeon p Laparoscopic Cholecystectomy Not Applicable Otilio Granados MD Postoperative plan narrative: 60F POD 2 sp cholecystectomy -Drain removed -May discharge home once micro has finalized and antibiotics can narrow. -SCDs and Lovenox -DC IVF -Continue Zosyn
--- NOTE | 2020-10-24 13:52 | CM.DANOTE ---
DCP assessment: Case received, EMR reviewed, d/c order noted. Met with pt and her Jeison, at bedside. A d/c order was noted but thus far only a progress note from Dr. Melo for today. Pt and Jeison both confirm we don't know if she will go today. The doctor says he would have to wait for cultures to come back. Maybe today, maybe tomorrow. Pt is a 60 year old female who admitted to care of [facility]. Dr. Granados took her to surgery once the hospital was off generator and on full power the evening to 10/22. Surgical process was documented as difficult and lengthy and pt was returned to the acute care floor after surgery on IV antibiotics. Pt is hopeful she cannot go today but also says she will do whatever the doctor says is best. Payer: [facility] [employer] and [employer] [facility] Admission status: INPT: confirmed by JETHRO Michel.
--- NOTE | 2020-10-24 17:16 | PC.NURSE ---
called Dr. Melo,pt ok to discharge. discharge instruction given. pt does not need to finish her IV medication before dc. DAVIS incision was saturated, changed dressing, gave extra drsng change materials to patient. pt aware she needs to make appt with Dr. Granados. all belongings with patient. bg 198, gave insulin. pt eating dinner at this time.
--- NOTE | 2020-10-26 08:50 | P.DS_ITS ---
History of Present Illness History of Present Illness Chief complaint: middle back pain, moves to sides Narrative: 60-year-old woman history of [id number] diabetes, hypertension, obesity admitted to the hospital for acute cholecystitis. Yesterday she developed mid back pain and associated nausea with emesis. At admission, WBC 18, normal LFTs and bilirubin, negative cardiac markers. Ultrasound RUQ and CT A/P demonstrates acute cholecystitis with a non mobile gallstones within the neck gallbladder. No history of prior similar episodes. She received IV fluid resuscitation and Zosyn. Currently abdominal pain significantly improved no further nausea or emesis since admission. Prior abdominal surgery includes a laparoscopic ovarian cyst drainage. Not on anticoagulation but takes aspirin 81 mg intermittently at home and recieved 325 ASA in ER last night. Discharge Providers Provider Date of admission: 10/22/20 18:44 Discharge Date: 10/24/20 Primary care physician: Jennifer Lopez PA-C Consults: 10/22/20 18:44 Consult to Discharge Planning Routine Comment: Discharge provider: Julián Melo MD Summary Hospital Course Discharge Diagnosis: Acute cholecystitis Diabetes Hospital Course: Patient underwent a laparoscopic cholecystectomy for acute c holecystitis. Postoperatively she remained on Zosyn while her leukocytosis downtrended and peritoneal cultures finalized. Microbiology demonstrated Streptococcus salivarius and she was discharged home on 7 day course of cefixime Exam Vital Signs (past 8 hours): Oxygen Delivery Method Room Air Oxygen Flow Rate 0 Narrative Exam Narrative: General adult female alert oriented no acute distress Chest nonlabored respirations Abdomen soft appropriately tender to palpation. Laparoscopic port incisions clean dry intact. DAVIS drain is serosanguineous fluid no bile removed. Objective Labs Result Diagrams: 10/24/20 05:00 10/24/20 05:00 [facility] Medical History Diabetes Hyperlipidemia Hypertension Social History household members: spouse Smoking Status: Never smoker alcohol intake: current Discharge Plan Discharge Plan Patient Disposition: Home Provider Discharge Comment: You had a very inflamed gallbladder. Your operation went well. Discharge orders & Medications Prescriptions: New oxycodone-acetaminophen [Percocet] 5-325 mg tablet See Rx Instructions .ROUTE .COMPLEX PRN (Reason: painful procedure) Qty: 14 RF: 0 cefixime 400 mg capsule 400 mg PO DAILY Qty: 7 RF: 0 Continued losartan 50 mg tablet 50 mg PO DAILY RF: 0 tolterodine 4 mg capsule,extended release 24hr 4 mg PO DAILY RF: 0 metformin 1,000 mg tablet 1,000 mg PO BID RF: 0 pravastatin 20 mg tablet 20 mg PO DAILY RF: 0 hydrochlorothiazide 25 mg tablet 25 mg PO DAILY RF: 0 Follow up/Referrals: Jennifer Lopez PA-C [Primary Care Provider] - Otilio Granados MD [Physician] - 2 Weeks (Please call my office and make an appointment to see me in about 10-14 days. If you need to reach a doctor please call our office. If it is after hours listen to the message and you will be instructed how to page the doctor on-call. Have a pen and paper ready to write the telephone number down.) Diet/Activity/Treatments Diet: Diet as Tolerated Activity: Do not lift over 10 lb or strain for the next 4 weeks. No pool or tub for least [address] you are pain-free off medication. You may remove the bandages and Band-Aids tomorrow and shower. Keep a Band-Aid over the drain site until it stops draining and seals. This will probably take a few days. Leave the tape that is under the Band-Aids and over the other incisio ns alone. Let it fall off on its own. Skin/Wound/Dressing Care Report to your healthcare provider any signs of infection, such as:: chills, fever, increased pain, unusual drainage and unusual redness Visit Report/Discharge Packet Instructions: Cholecystectomy -- Laparoscopic Surgery, DI for Prescription Opioid Use, [facility]: Wound Care Discharge Data Primary Care Provider: Jennifer Lopez
== END 2020-10-24 18:37 | disposition home or self-care (01) | DRG 419 ==
LOC: ED 10-22 02:52 → AC 10-22 07:15
PROVIDERS: Specialist; Admitting Provider Surgery; Emergency Provider Emergency Medicine; PCP Physician Assistant; Referring Provider Emergency Medicine; Visit Provider Surgery
PROC: 0FT44ZZ Resection of Gallbladder, Percutaneous Endoscopic Approach (ICD-10-PCS; CPT 47562; principal; 2020-10-22 14:30)
DX: K80.00 Calculus of gallbladder with acute cholecystitis without obstruction (principal); E11.9 Type 2 diabetes mellitus without complications; I10 Essential (primary) hypertension; E66.9 Obesity, unspecified; Z68.36 Body mass index [BMI] 36.0-36.9, adult; E78.5 Hyperlipidemia, unspecified; Z20.822 Contact with and (suspected) exposure to COVID-19; Z79.84 Long term (current) use of oral hypoglycemic drugs
CPT/HCPCS: 36415; 47562; 71045; 74177; 76705; 80053; 81001; 82550; 82553; 82962; 83605; 83690; 84484; 85025; 87040; 87070; 87075; 87077; 87205; 87635; 93005; 96361; 96374; 96375; 99222; 99284; C9803; G0378; C9113; J0690; J1170; J1650; J1815; J1885; J2270; J2405; J2543; Q9967

== ENCOUNTER → 2021-06-08 13:59 | Outpatient (CLI) | payer OTHER, SELFPAY ==
[2020-10-22 04:01] VITALS: BMI 36.8
--- NOTE | 2021-06-08 14:06 | DI.RAD.S_ITS ---
PROCEDURE: XR FOOT LT MIN 3V INDICATIONS: L GREAT TOE ULCER TECHNIQUE: 3 views of the foot were acquired. COMPARISON: [facility], CR, XR TOE(S) LEFT, 09/19/2019, 14:40. FINDINGS: Bones: Lucencies noted in the lateral margin of the base of the 1st distal phalange which may represent erosive changes. Large calcaneal bone spur. Soft tissues: No tibiotalar joint effusion. Two small linear radiodense foreign bodies on bed in the plantar soft tissues of the 1st toe. Achilles tendon appears normal. No soft tissue gas. IMPRESSION: Lucency in the base of the 1st distal phalange which may represent osteomyelitis. Recommend either three-phase nuclear medicine bone scan or MRI for additional evaluation. Dictated by: Katt Rivas MD, PhD on 06/08/2021 at 17:32 Approved by: Katt Rivas MD, PhD on 06/08/2021 at 17:34
[2021-06-08 14:30] LABS: Hematocrit 42.1 % (36-46); Hemoglobin 14.2 g/dL (12.0-16.0); Mean Corpuscular HGB Conc 33.7 % (30-36); Mean Corpuscular Hemoglobin 30.1 PG (26-34); Mean Corpuscular Volume 89.4 fL (80-100); Platelet Count 375 X10^3/uL (150-400); Red Blood Cell Count 4.71 X10^6/uL (4.0-5.2); Red Cell Distribution Width 13.8 % (11.6-14.8); White Blood Cell Count 8.4 X10^3/uL (4.5-11.0)
[2021-06-08 14:32] LABS: Add Manual Diff / Slide Review YES
[2021-06-08 14:38] LABS: Alanine Aminotransferase 44 IU/L (<35); Albumin Globulin Ratio 1.4 (1.0-2.8); Alkaline Phosphatase 88 U/L (38-126); Aspartate Aminotransferase 55 IU/L (14-36); BUN Creatinine Ratio 17.6 (6-22); Bilirubin Total 0.6 mg/dL (0.2-1.3); Blood Urea Nitrogen 16 mg/dL (7-17); Calcium 11.1 mg/dL (8.4-10.2); Carbon Dioxide 26 mmol/L (22-32); Chloride 103 mmol/L (98-107); Estimated Glomerular Filt Rate > 60.0 mL/min (>60); Globulin 3.6 g/dL (1.7-4.1); Glucose 155 mg/dL (80-110); HEMOLYSIS < 15 (0-50); Potassium 3.4 mmol/L (3.4-5.1); Sodium 142 mmol/L (137-145); Total Protein 8.6 g/dL (6.3-8.2)
[2021-06-08 16:24] LABS: Neutrophils Absolute Manual 5040 /uL (3000-5900); Platelet Estimate Adequate on smear; RBC Morphology Normal Morphology; Total Cells Counted 100
[2021-06-09 15:14] LABS: C-Reactive Protein Quant 1.9 mg/dL (<1.0)
== END ==
PROVIDERS: PCP Physician Assistant; Referring Provider Physician Assistant; Visit Provider Physician Assistant
DX: L03.032 Cellulitis of left toe (principal); L97.529 Non-pressure chronic ulcer of other part of left foot with unspecified severity
CPT/HCPCS: 36415; 73630; 80053; 85007; 85025; 86140

== ENCOUNTER → 2021-06-10 16:25 | Outpatient (CLI) | payer BC, OTHER, SELFPAY ==
[2020-10-22 04:01] VITALS: BMI 36.8
--- NOTE | 2021-06-10 | DI.MRI.S_ITS ---
PROCEDURE: MR FOOT LT WO/W CON INDICATIONS: ACUTE HEMATOGENOUS OSTEOMYELITIS,UNSPECIFIED TECHNIQUE: Noncontrast coronal T1 spin echo and STIR, sagittal T1 spin echo with fat saturation and STIR, axial T1 spin echo and T2 fast spin echo with fat saturation. After the administration of contrast, axial/sagittal/coronal T1 spin echo with fat saturation through the left foot. COMPARISON: [facility], CR, XR FOOT LT MIN 3V, 06/08/2021, 15:27. FINDINGS: Image quality: Susceptibility artifacts are noted in soft tissue along medial aspect of 1st distal phalanx likely from linear density seen in this area on prior left foot radiograph. Bones: There is marrow edema involving 1st distal phalanx with subtle dorsal and medial cortical erosive changes concerning for osteomyelitis. Heterogeneous contrast enhancement is also noted within 1st distal phalanx. No other area of abnormal marrow signal. No fracture or dislocation. No metatarsal stress fracture. Osteoarthritic changes are noted throughout midfoot and forefoot joints more prominent at 1st MTP joint and 1st interphalangeal joint. Soft tissues: There is soft tissue swelling and edema surrounding distal portion of left great toe although evaluation is slightly limited due to adjacent susceptibility artifact in this area. No discrete drainable fluid collection is identified. No other area of abnormal soft tissue signal or enhancement. No ganglion cyst. Extensor and flexor tendons are intact. Lisfranc ligament and joint is intact. IMPRESSION: 1. Finding is suggestive of osteomyelitis involving 1st distal phalanx with possible very subtle erosion over medial and dorsal cortex of distal phalangeal tuft. Surrounding soft tissue swelling and edema in 1st toe distally concerning for cellulitis. No discrete drainable abscess collection. Dictated by: Dioni Zuñiga M.D. on 06/13/2021 at 9:04 Approved by: Dioni Zuñiga M.D. on 06/13/2021 at 9:16
== END ==
PROVIDERS: Family Provider Physician Assistant; PCP Physician Assistant; Referring Provider Physician Assistant; Visit Provider Physician Assistant
DX: M86.00 Acute hematogenous osteomyelitis, unspecified site (principal)
CPT/HCPCS: 73720; A9579

== ENCOUNTER → 2021-06-14 09:12 | Outpatient (CLI) | payer BC, OTHER, SELFPAY ==
[2020-10-22 04:01] VITALS: BMI 36.8
== END ==
PROVIDERS: Family Provider Physician Assistant; PCP Physician Assistant; Referring Provider Physician Assistant; Visit Provider Family Medicine
DX: E11.621 Type 2 diabetes mellitus with foot ulcer (principal); L97.522 Non-pressure chronic ulcer of other part of left foot with fat layer exposed; L08.9 Local infection of the skin and subcutaneous tissue, unspecified; L84 Corns and callosities; E11.40 Type 2 diabetes mellitus with diabetic neuropathy, unspecified; M20.42 Other hammer toe(s) (acquired), left foot; Z79.84 Long term (current) use of oral hypoglycemic drugs
CPT/HCPCS: 11042; 87070; 87075; 87077; 87147; 87205; 93922; 99204; 99214

== ENCOUNTER → 2021-06-21 10:15 | Outpatient (CLI) | payer BC, OTHER, SELFPAY ==
[2020-10-22 04:01] VITALS: BMI 36.8
== END ==
PROVIDERS: Family Provider Physician Assistant; PCP Physician Assistant; Referring Provider Physician Assistant; Visit Provider Family Medicine
DX: E11.621 Type 2 diabetes mellitus with foot ulcer (principal); L97.522 Non-pressure chronic ulcer of other part of left foot with fat layer exposed; E11.40 Type 2 diabetes mellitus with diabetic neuropathy, unspecified; Z79.84 Long term (current) use of oral hypoglycemic drugs
CPT/HCPCS: 11042; 99213

== ENCOUNTER → 2021-06-29 09:46 | Outpatient (CLI) | payer BC, OTHER, SELFPAY ==
[2020-10-22 04:01] VITALS: BMI 36.8
== END ==
PROVIDERS: Family Provider Physician Assistant; PCP Physician Assistant; Referring Provider Physician Assistant; Visit Provider Family Medicine
DX: E11.621 Type 2 diabetes mellitus with foot ulcer (principal); L97.522 Non-pressure chronic ulcer of other part of left foot with fat layer exposed; L84 Corns and callosities; E11.40 Type 2 diabetes mellitus with diabetic neuropathy, unspecified; Z79.84 Long term (current) use of oral hypoglycemic drugs
CPT/HCPCS: 11042

== ENCOUNTER → 2021-07-27 09:13 | Outpatient (CLI) | payer BC, OTHER, SELFPAY ==
[2020-10-22 04:01] VITALS: BMI 36.8
== END ==
PROVIDERS: Family Provider Physician Assistant; PCP Physician Assistant; Referring Provider Physician Assistant; Visit Provider Family Medicine
DX: E11.621 Type 2 diabetes mellitus with foot ulcer (principal); L97.522 Non-pressure chronic ulcer of other part of left foot with fat layer exposed; L08.9 Local infection of the skin and subcutaneous tissue, unspecified; L84 Corns and callosities; E11.40 Type 2 diabetes mellitus with diabetic neuropathy, unspecified; M20.42 Other hammer toe(s) (acquired), left foot; Z79.84 Long term (current) use of oral hypoglycemic drugs
CPT/HCPCS: 11042; 87070; 87075; 87077; 87147; 87185; 87186; 87205; 99212; 99213

== ENCOUNTER → 2021-08-03 13:42 | Outpatient (CLI) | payer BC, OTHER, SELFPAY ==
[2020-10-22 04:01] VITALS: BMI 36.8
== END ==
PROVIDERS: Family Provider Physician Assistant; PCP Physician Assistant; Referring Provider Physician Assistant; Visit Provider Family Medicine
DX: E11.621 Type 2 diabetes mellitus with foot ulcer (principal); L97.522 Non-pressure chronic ulcer of other part of left foot with fat layer exposed; L84 Corns and callosities; L08.89 Other specified local infections of the skin and subcutaneous tissue; B95.7 Other staphylococcus as the cause of diseases classified elsewhere; B95.61 Methicillin susceptible Staphylococcus aureus infection as the cause of diseases classified elsewhere; B95.1 Streptococcus, group B, as the cause of diseases classified elsewhere; E11.40 Type 2 diabetes mellitus with diabetic neuropathy, unspecified; M21.6X9 Other acquired deformities of unspecified foot
CPT/HCPCS: 11042; 99214

== ENCOUNTER → 2021-08-10 15:11 | Outpatient (CLI) | payer BC, OTHER, SELFPAY ==
[2020-10-22 04:01] VITALS: BMI 36.8
== END ==
PROVIDERS: Family Provider Physician Assistant; PCP Physician Assistant; Referring Provider Physician Assistant; Visit Provider Family Medicine
DX: E11.621 Type 2 diabetes mellitus with foot ulcer (principal); L97.522 Non-pressure chronic ulcer of other part of left foot with fat layer exposed; L84 Corns and callosities; E11.40 Type 2 diabetes mellitus with diabetic neuropathy, unspecified; M21.6X9 Other acquired deformities of unspecified foot
CPT/HCPCS: 11042

== ENCOUNTER 2021-09-13 08:30 | Inpatient (IN) | payer BC, OTHER, SELFPAY ==
[2020-10-22 04:01] VITALS: BMI 36.8
[2021-09-13] VITALS (30 sets, daily range): BP systolic 85–200; BP diastolic 38–99; PULSE 65–127; RESP 15–28; TEMP 36.8–40.9; O2SAT 92–100; BMI 33.4
--- NOTE | 2021-09-13 09:27 | DI.RAD.S_ITS ---
PROCEDURE: XR FOOT LT MIN 3V INDICATIONS: post op infection TECHNIQUE: 3 views of the foot were acquired. COMPARISON: [facility], CR, XR FOOT LT MIN 3V, 06/08/2021, 15:27. FINDINGS: Bones: Postsurgical changes are noted in left great toe with fixation screw through the 1st interphalangeal joint. There is increased radiolucency surrounding fixation screw concerning for hardware loosening. Bony erosive changes are noted involving 1st distal phalangeal tuft concerning for osteomyelitis in this area. No acute fracture or dislocation. Osteoarthritic changes are again seen throughout midfoot and forefoot joints. No suspicious bony lesions. Soft tissues: Marked soft tissue swelling surrounding great toe is seen with suggestion of ulceration versus surgical wound at distal great toe soft tissue. No tibiotalar joint effusion. Achilles tendon appears normal. IMPRESSION: Postsurgical changes in great toe with suggestion of hardware loosening as above. Additional erosive changes involving 1st distal phalangeal tuft with surrounding soft tissue swelling concerning for osteomyelitis in this region. Dictated by: Dioni Zuñiga M.D. on 09/13/2021 at 10:38 Approved by: Dioni Zuñiga M.D. on 09/13/2021 at 10:40
--- NOTE | 2021-09-13 09:28 | DI.RAD.S_ITS ---
PROCEDURE: XR CHEST 1V INDICATIONS: eval for PNA TECHNIQUE: One view of the chest was acquired. COMPARISON: [facility], CR, XR CHEST 1V, 10/21/2020, 23:01. FINDINGS: Surgical changes and devices: None. Lungs and pleura: Lungs appear clear. No consolidation. Prominent interstitial markings are unchanged. No pleural effusions or pneumothorax. Mediastinum: Mediastinal contours appear normal. Heart size is normal. Bones and chest wall: No suspicious bony lesions. Overlying soft tissues appear unremarkable. IMPRESSION: No consolidation identified to suggest pneumonia. Prominent interstitial markings. This could be seen in the setting of pulmonary vasculature engorgement or interstitial lung disease. Dictated by: Wilfrido Li M.D. on 09/13/2021 at 10:54 Approved by: Wilfrido Li M.D. on 09/13/2021 at 10:57
[2021-09-13 10:27] LABS: Add Manual Diff / Slide Review NO; Basophils Absolute Auto 100 /uL (0-100); Basophils Percent Auto 0.4 % (0-2); Eosinophils Absolute Auto 0 /uL (0-450); Eosinophils Percent Auto 0.1 % (2-4); Hematocrit 36.7 % (36-46); Hemoglobin 12.2 g/dL (12.0-16.0); Lymphocytes Absolute Auto 200 /uL (1100-4500); Lymphocytes Percent Auto 1.6 % (25-40); Mean Corpuscular HGB Conc 33.3 % (30-36); Mean Corpuscular Hemoglobin 29.6 PG (26-34); Monocytes Absolute Auto 500 /uL (0-900); Monocytes Percent Auto 3.5 % (3-14); Neutrophils Absolute Auto 13100 /uL (1500-7000); Neutrophils Percent Auto 94.4 % (50-75); Platelet Count 222 X10^3/uL (150-400); Red Blood Cell Count 4.13 X10^6/uL (4.0-5.2); Red Cell Distribution Width 13.6 % (11.6-14.8); White Blood Cell Count 13.9 X10^3/uL (4.5-11.0)
[2021-09-13] MEDS: cefTRIAXone 1,000 MG in SODIUM CHLORIDE 0.9% 100 ML 200 ML IV (10:36)
[2021-09-13] MEDS: SODIUM CHLORIDE 0.9% 1,000 ML 1000 ML IV (10:37)
[2021-09-13 10:40] LABS: Alanine Aminotransferase 42 IU/L (<35); Albumin 4.5 g/dL (3.5-5.0); Albumin Globulin Ratio 1.3 (1.0-2.8); Alkaline Phosphatase 105 U/L (38-126); Aspartate Aminotransferase 63 IU/L (14-36); BUN Creatinine Ratio 16.7 (6-22); Bilirubin Total 0.8 mg/dL (0.2-1.3); Blood Urea Nitrogen 27 mg/dL (7-17); Calcium 9.8 mg/dL (8.4-10.2); Carbon Dioxide 26 mmol/L (22-32); Chloride 93 mmol/L (98-107); Creatine Kinase 395 U/L (30-135); Estimated Glomerular Filt Rate 32.1 mL/min (>60); Globulin 3.4 g/dL (1.7-4.1); Glucose 256 mg/dL (80-110); HEMOLYSIS < 15 (0-50); Lipase 38 U/L (23-300); Potassium 3.4 mmol/L (3.4-5.1); Sodium 131 mmol/L (137-145); Total Protein 7.9 g/dL (6.3-8.2)
--- NOTE | 2021-09-13 10:40 | ED_ITS ---
HPI - Extremity Problem General Chief complaint: Extremity Problem,Nontraumatic Stated complaint: Left big toe swollen- had screw put in 08/23 Time Seen by Provider: 09/13/21 09:27 Source: patient Mode of arrival: Wheelchair History of Present Illness HPI Narrative: 61-year-old female. Three weeks ago had a fusion of her left great toe. She states this is because she had a hammertoe on was having chronic wounds under the area. She states the procedure went well. She has had follow-up with her primary are ready. Over the past 24 hours she has started to feel worse. Has swelling of her left great toe. She is also having lower back spasms. No urinary symptoms. Related Data Home Medications Medication Instructions Recorded Confirmed hydrochlorothiazide 25 mg tablet 25 mg PO DAILY 10/21/20 09/13/21 losartan 50 mg tablet 100 mg PO DAILY 10/21/20 09/13/21 pravastatin 20 mg tablet 20 mg PO DAILY 10/21/20 09/13/21 aspirin 81 mg tablet,delayed 81 mg PO QPM 09/13/21 09/13/21 release metformin 500 mg tablet,extended 2,000 mg PO QPM 09/13/21 09/13/21 release 24 hr oxybutynin chloride 5 mg 5 mg PO QPM 09/13/21 09/13/21 tablet,extended release 24 hr Allergies Allergy/AdvReac Type Severity Reaction Status Date / Time Sulfa (Sulfonamide Allergy Mild RASH Verified 09/13/21 09:13 Antibiotics) [SULFA (SULFONAMIDE ANTIBIOTICS)] Review of Systems Constitutional Constitutional: Reports chills and Reports fatigue Cardiovascular Cardiovascular: Reports system reviewed and no additional complaints, except as documented Respiratory Respiratory: Reports system reviewed and no additional complaints, except as d ocumented Gastrointestinal Gastrointestinal: Reports system reviewed and no additional complaints, except as documented Genitourinary Genitourinary: Reports system reviewed and no additional complaints, except as documented Musculoskeletal Musculoskeletal: Reports back pain Integumentary/Breasts Skin/Breast: Reports system reviewed and no additional complaints, except as documented and Reports as per HPI Neurologic Neurologic: Reports system reviewed and no additional complaints, except as documented Endocrine Endocrine: Reports fatigue Hematologic/Lymphatic On Anticoagulants: No Allergic/Immunologic Allergic/Immunologic: Reports system reviewed and no additional complaints, except as documented Patient History Medical History Diabetes Hyperlipidemia Hypertension Surgical History H/O foot surgery History of cholecystectomy Family History Mother Diabetes mellitus Father Diabetes mellitus Other Hypertension Social History household members: spouse Smoking Status: Never smoker alcohol intake: current Smoking Status: Never smoker alcohol intake frequency: holidays/special occasions only Substance Use Type: does not use Exam Initial Vital Signs Initial Vital Signs: Vital Signs Temperature 101.9 F H 09/13/21 09:13 Pulse Rate 103 H 09/13/21 09:13 Respiratory Rate 16 09/13/21 09:13 Blood Pressure 131/61 09/13/21 09:13 Pulse Oximetry 98 09/13/21 09:13 Const General: cooperative, comfortable, well developed and well groomed HENMT Head: normal to inspection and normocephalic Resp Effort & Inspection: normal respiratory effort and tachypneic Auscultation: no rhonchi and no wheezes Cardio Rate: tachycardic Rhythm: regular rhythm GI Inspection: normal to inspection Palpation: soft Back/Spine/Pelvis Thoracic/Lumbar Spine: paraspinal tenderness (Lumbar region) Skin Other: Patient with a grossly enlarged left great toe with redness and drainage from the tip. Redness does not extend above the MTP joint. The 2nd toe there is unremarkable. The rest of her left foot is unremarkable. Neuro General: patient alert, patient awake, patient oriented x3 and moves all extremities Extrem Other: Swelling redness left great toe rest of her left lower extremity unremarkable Psych Appearance: grossly normal and well kempt Course Orders Ordered: ED Orders 09/13/21 09:27 XR foot LT min 3V Stat 09/13/21 09:28 XR chest 1V Stat 09/13/21 10:10 Complete Blood Count AUTO DIFF Stat Comprehensive Metabolic Panel Stat Lactate (Lactic Acid) Stat Lipase Stat Troponin & CK Cardiac Panel Stat 09/13/21 10:52 EKG-12 Lead Routine 09/13/21 11:00 Wound Culture and Gram Stain Stat 09/13/21 11:16 Consult to Orthopedic Surgery Stat 09/13/21 12:03 COVID19 -Nasal swab/Pre-Proc Stat 09/13/21 15:15 Urinalysis and Microscopic Stat Urine Culture Stat Dextrose (Dextrose 50 % In Water 25 Gm/50 Ml Syringe) 25 gm IV PRN PRN PRN Reason: Hypoglycemia Diazepam (Diazepam 10 Mg/2 Ml Syringe) 5 mg IV Q6HR PRN PRN Reason: muscle spasm Last Admin: 09/13/21 14:02 Dose: 5 mg Documented by: MOSES Hydromorphone HCl (Hydromorphone 0.5 Mg Inj) 0.5 mg IV Q4H PRN PRN Reason: Breakthrough pain only (8-10) Last Admin: 09/13/21 13:54 Dose: 0.5 mg Documented by: MOSES Lactated Ringer's (Lactated Ringers) 1,000 mls @ 125 mls/hr IV CONT FERNANDA Last Admin: 09/13/21 15:01 Dose: 125 mls/hr Documented by: EVA Ceftriaxone Sodium 1,000 mg/ (Sodium Chloride) 100 mls @ 200 mls/hr IV Q24H FERNANDA Vancomycin HCl (Vancomycin) 1,250 mg in 250 mls @ 250 mls/hr IV Q24H FERNANDA Insulin Human Lispro (Insulin Lispro 100 Unit/Ml 3ml Vial) 0 unit SUBCUT ACHS FERNANDA; Protocol Ketorolac Tromethamine (Ketorolac 30 Mg/Ml Vial) 15 mg IV Q6H PRN PRN Reason: pain / fever Stop: 09/16/21 13:29 Last Admin: 09/13/21 15:50 Dose: 15 mg Documented by: MOSES Naloxone HCl (Naloxone 0.4 Mg/Ml Vial) 0.2 mg IV Q2MIN PRN PRN Reason: Opiate Reversal Ondansetron HCl (Ondansetron 4 Mg/2 Ml Inj) 4 mg IV Q8HR PRN PRN Reason: Nausea And Vomiting Sodium Chloride (Sodium Chloride 0.9% Flush) 10 ml IV PRN PRN PRN Reason: Flush Sodium Chloride (Sodium Chloride 0.9% Flush) 10 ml IV BID FERNANDA Vancomycin HCl (Vancomycin Trough) 1 request [facility] 4882 ONE Stop: 09/16/21 06:31 Discontinued Medications Sodium Chloride (Normal Saline 0.9%) 1,000 mls @ 1,000 mls/hr IV BOLUS ONE Stop: 09/13/21 10:26 Last Infusion: 09/13/21 11:39 Dose: 0 mls/hr Documented by: Admin: 09/13/21 10:37 Dose: 1,000 mls/hr Documented by: JOSHUA Ceftriaxone Sodium 1,000 mg/ (Sodium Chloride) 100 mls @ 200 mls/hr IV NOW ONE Stop: 09/13/21 09:28 Last Infusion: 09/13/21 11:38 Dose: 0 mls/hr Documented by: Admin: 09/13/21 10:36 Dose: 200 mls/hr Documented by: JOSHUA Vancomycin HCl (Vancomycin) 1,000 mg in 200 mls @ 200 mls/hr IV NOW ONE Stop: 09/13/21 11:39 Last Infusion: 09/13/21 12:34 Dose: 0 mls/hr Documented by: Admin: 09/13/21 11:10 Dose: 200 mls/hr Documented by: SIL Lactated Ringer's (Lactated Ringers) 1,000 mls @ 1,000 mls/hr IV BOLUS ONE Stop: 09/13/21 15:33 Last Admin: 09/13/21 15:00 Dose: 1,000 mls/hr Documented by: EVA Ketorolac Tromethamine (Ketorolac 30 Mg/Ml Vial) 30 mg IV NOW ONE Stop: 09/13/21 10:41 Last Admin: 09/13/21 11:08 Dose: 30 mg Documented by: SIL Ketorolac Tromethamine (Ketorolac 30 Mg/Ml Vial) 15 mg IV Q6H FERNANDA Stop: 09/16/21 13:29 Last Admin: 09/13/21 13:38 Dose: Not Given Documented by: EVA Morphine Sulfate (Morphine 4 Mg/Ml Inj) 4 mg IV NOW ONE Stop: 09/13/21 12:16 Last Admin: 09/13/21 12:24 Dose: 4 mg Documented by: JOSHUA Vital Signs Vital signs: Vital Signs - 8 hr 09/13/21 09:13 09/13/21 10:04 09/13/21 10:30 Temperature 101.9 F H Pulse Rate 103 H 65 100 H Respiratory Rate 16 Blood Pressure 131/61 156/72 H 150/62 H Pulse Oximetry 98 95 93 09/13/21 10:45 09/13/21 11:00 09/13/21 11:01 Temperature Pulse Rate 104 H 109 H 109 H Respiratory Rate Blood Pressure 166/77 H 200/80 H Pulse Oximetry 92 99 100 09/13/21 11:15 09/13/21 11:30 09/13/21 11:45 Temperature Pulse Rate 111 H 107 H 104 H Respiratory Rate Blood Pressure 177/75 H 165/74 H 163/75 H Pulse Oximetry 100 97 96 MDM - Extremity (Nontraumatic) Lab Data Result diagrams: 09/13/21 10:10 09/13/21 10:10 Labs: Lab Results 09/13/21 09/13/21 09/13/21 Range/Units 10:10 10:10 10:10 WBC 13.9 H (4.5-11.0) X10^3/uL RBC 4.13 (4.0-5.2) X10^6/uL Hgb 12.2 (12.0-16.0) g/dL Hct 36.7 (36-46) % MCV 89.0 (80-100) fL MCH 29.6 (26-34) PG MCHC 33.3 (30-36) % RDW 13.6 (11.6-14.8) % Plt Count 222 (150-400) X10^3/uL Neut % (Auto) 94.4 H (50-75) % Lymph % (Auto) 1.6 L (25-40) % [place] % (Auto) 3.5 (3-14) % Eos % (Auto) 0.1 L (2-4) % Baso % (Auto) 0.4 (0-2) % Neut # (Auto) 10111 H (5832-7729) /uL Lymph # (Auto) 200 L (0375-4402) /uL [place] # (Auto) 500 (0-900) /uL Eos # (Auto) 0 (0-450) /uL Baso # (Auto) 100 (0-100) /uL PT (10.1-12.7) SECONDS INR (0.9-1.3) APTT (26.4-36.2) SECONDS Sodium 131 L (137-145) mmol/L Potassium 3.4 (3.4-5.1) mmol/L Chloride 93 L (98-107) mmol/L Carbon Dioxide 26 (22-32) mmol/L BUN 27 H (7-17) mg/dL Creatinine 1.62 H (0.52-1.04) mg/dL Estimated GFR 32.1 L (>60) mL/min BUN/Creatinine Ratio 16.7 (6-22) Glucose 256 H (80-110) mg/dL Lactate 3.8 H (0.7-2.1) mmol/L Calcium 9.8 (8.4-10.2) mg/dL Total Bilirubin 0.8 (0.2-1.3) mg/dL AST 63 H (14-36) IU/L ALT 42 H (<35) IU/L Alkaline Phosphatase 105 (38-126) U/L Total Creatine Kinase 395 H (30-135) U/L CK-MB (CK-2) 1.23 (<2.37) ng/mL CK-MB (CK-2) Rel Index 0.3 L (1.5-5.0) % Troponin I < 0.012 (0.01-0.034) ng/mL Total Protein 7.9 (6.3-8.2) g/dL Albumin 4.5 (3.5-5.0) g/dL Globulin 3.4 (1.7-4.1) g/dL Albumin/Globulin Ratio 1.3 (1.0-2.8) Lipase 38 (23-300) U/L / Range/Units 10:10 WBC (4.5-11.0) X10^3/uL RBC (4.0-5.2) X10^6/uL Hgb (12.0-16.0) g/dL Hct (36-46) % MCV (80-100) fL MCH (26-34) PG MCHC (30-36) % RDW (11.6-14.8) % Plt Count (150-400) X10^3/uL Neut % (Auto) (50-75) % Lymph % (Auto) (25-40) % [place] % (Auto) (3-14) % Eos % (Auto) (2-4) % Baso % (Auto) (0-2) % Neut # (Auto) (5999-2763) /uL Lymph # (Auto) (5517-8879) /uL [place] # (Auto) (0-900) /uL Eos # (Auto) (0-450) /uL Baso # (Auto) (0-100) /uL PT 12.2 (10.1-12.7) SECONDS INR 1.1 (0.9-1.3) APTT 29 (26.4-36.2) SECONDS Sodium (137-145) mmol/L Potassium (3.4-5.1) mmol/L Chloride (98-107) mmol/L Carbon Dioxide (22-32) mmol/L BUN (7-17) mg/dL Creatinine (0.52-1.04) mg/dL Estimated GFR (>60) mL/min BUN/Creatinine Ratio (6-22) Glucose (80-110) mg/dL Lactate (0.7-2.1) mmol/L Calcium (8.4-10.2) mg/dL Total Bilirubin (0.2-1.3) mg/dL AST (14-36) IU/L ALT (<35) IU/L Alkaline Phosphatase (38-126) U/L Total Creatine Kinase (30-135) U/L CK-MB (CK-2) (<2.37) ng/mL CK-MB (CK-2) Rel Index (1.5-5.0) % Troponin I (0.01-0.034) ng/mL Total Protein (6.3-8.2) g/dL Albumin (3.5-5.0) g/dL Globulin (1.7-4.1) g/dL Albumin/Globulin Ratio (1.0-2.8) Lipase (23-300) U/L Imaging Data Extremity x-ray #1: Radiologist's Impression: [address] [address] XRay Report Signed Patient: Janneth De Dios MR#: [id number] : 1960 Acct:[id number] Age/Sex: 61 / F Date of Service: 09/13/21 Loc: ED Accession Number: [id number] ?? Procedure: XR foot LT min 3V Ordering Provider: Tai Vann D.O. PROCEDURE:? XR FOOT LT MIN 3V ? INDICATIONS:? post op infection ? TECHNIQUE:? 3 views of the foot were acquired.? ? COMPARISON:? [facility], CR, XR FOOT LT MIN 3V, 06/08/2021, 15:27. ? FINDINGS:? ? Bones:? Postsurgical changes are noted in left great toe with fixation screw through the 1st interphalangeal joint.? There is increased radiolucency surrounding fixation screw concerning for hardware loosening.? Bony erosive changes are noted involving 1st distal phalangeal tuft concerning for osteomyelitis in this area.? No acute fracture or dislocation.? Osteoarthritic changes are again seen? throughout midfoot and fore foot joints.? No suspicious bony lesions.? ? Soft tissues:? Marked soft tissue swelling surrounding great toe is seen with suggestion of ulceration versus surgical wound at distal great toe soft tissue.? No tibiotalar joint effusion.? Achilles tendon appears normal.? ? ? IMPRESSION:? Postsurgical changes in great toe with suggestion of hardware loosening as above.? Additional erosive changes involving 1st distal phalangeal tuft with surrounding soft tissue swelling concerning for osteomyelitis in this region.? ? ? Dictated by: Dioni Zuñiga M.D. on 09/13/2021 at 10:38 ? ? Approved by: Dioni Zuñiga M.D. on 09/13/2021 at 10:40? Chest x-ray: Radiologist's Impression: [place] [address] XRay Report Signed Patient: Janneth De Dios MR#: [id number] : 1960 Acct:[id number] Age/Sex: 61 / F Date of Service: 09/13/21 Loc: ED Accession Number: [id number] ?? Procedure: XR chest 1V Ordering Provider: Tai Vann D.O. PROCEDURE:? XR CHEST 1V ? INDICATIONS:? eval for PNA ? TECHNIQUE:? One view of the chest was acquired.? ? COMPARISON:? [facility], CR, XR CHEST 1V, 10/21/2020, 23:01. ? FINDINGS:? ? Surgical changes and devices:? None.? ? Lungs and pleura:? Lungs appear clear.? No consolidation.? Prominent interstitial markings are unchanged. No pleural effusions or pneumothorax.? ? Mediastinum:? Mediastinal contours appear normal.? Heart size is normal.? ? Bones and chest wall:? No suspicious bony lesions.? Overlying soft tissues appear unremarkable.? ? IMPRESSION:? No consolidation identified to suggest pneumonia. ? Prominent interstitial markings.? This could be seen in the setting of pulmonary vasculature engorgement or interstitial lung disease. ? Dictated by: Wilfrido Li M.D. on 09/13/2021 at 10:54 ? ? Approved by: Wilfrido Li M.D. on 09/13/2021 at 10:57? ECG Data Attestation EKG: I personally reviewed and interpreted this ECG as follows: Interpretation: Sinus rhythm Tachycardic with a rate of 108 Normal axis Occasional PAC Normal QRS No ST T wave changes MDM Narrative Medical decision making narrative: Patient tachycardic and febrile with obvious infection of her left great toe an x-ray concerning about loosening of the hardware. Attempted to contact her operative provider however this individual is not in the office. I did discuss the case with Dr. Yang on-call for Orthopedics who agrees to see the patient as an inpatient. Orthopedics ordered. Blood cultures obtained. Patient not hypotensive. Not altered. Not dehydrated so will hold on 30 cc/kilogram of fluid based on this. Antibiotics started in the emergency department. Discussed the case with Dr. Jason with internal medicine who will admit for further evaluation and treatment. I did discuss this with the patient as well. She expressed understanding and agreement. Discharge Plan Departure Patient Disposition: Admitted As Inpatient Clinical Impression: Cellulitis Admit Date/Time: 09/13/21 11:51 Admit Provider: Carson Jason
[2021-09-13 10:41] LABS: Lactate (Lactic Acid) 3.8 mmol/L (0.7-2.1)
[2021-09-13 10:49] LABS: Troponin I < 0.012 ng/mL (0.01-0.034)
[2021-09-13 10:55] LABS: CKMB % Relative Index 0.3 % (1.5-5.0); Creatine Kinase MB 1.23 ng/mL (<2.37)
[2021-09-13] MEDS: KETOROLAC 30 MG/ML VIAL IV (11:08)
[2021-09-13] MEDS: VANCOMYCIN 1,000 MG/200 ML PIGGYBACK 200 MG IV (11:10)
[2021-09-13 12:24] LABS: Reflexed Lactate in 2 Hours Y
[2021-09-13] MEDS: MORPHINE 4 MG/ML INJ IV (12:24)
[2021-09-13 12:41] LABS: COVID19 -Nasal RAPID Negative (Negative)
--- NOTE | 2021-09-13 13:20 | PM.HP.1 ---
History of Present Illness History of Present Illness Date Patient Seen: 09/13/21 Time Patient Seen: 13:20 Chief complaint: Left big toe swollen- had screw put in 08/23 Narrative: 60-year-old woman history of tif-[id number] diabetes with peripheral neuropathy hypertension, obesity, hyperlipidemia and recent screw placement in her left 1st toe with Orthopedic surgery on August 23. Patient had the swapnil removed and was doing well but overnight yesterday developed abrupt onset of redness and swelling of her toe. Over the weekend she was nauseous and vomiting and unable to tolerate much oral intake but did not notice any swelling at that time, though the noted that it was potentially getting bigger over the weekend as well. She denies any trauma to her foot. In the emergency room, the patient was febrile to 103, tachycardic, and actually slightly hypertensive. The remainder of her vital signs are unremarkable. Initial laboratory evaluation showed a leukocytosis with WBC at 13.9. Coagulation studies were unremarkable. Blood cultures were not initially ordered but were ordered upon arrival to the floor and continued fever. Chemistries revealed MARGY with creatinine 1.62 elevated lactate of 3.8, glucose of 256. Urinalysis was not consistent with an infection. COVID-19 testing was negative. Orthopedics was consulted in the emergency room and patient was admitted to Medicine for antibiotics and further management of possible septic arthritis. Patient History Medical History Diabetes Hyperlipidemia Hypertension Surgical History H/O foot surgery History of cholecystectomy Family & Social History Family History Mother Diabetes mellitus Father Diabetes mellitus Other Hypertension Social History: household members spouse Safety & Behavioral: Feels Safe in Current Yes Environment Been Physically Hurt or No Threatened By a Person Tobacco & Substance use: Smoking Status Never smoker alcohol intake current alcohol intake frequency holiday/special occasion Substance Use Type does not use Meds Home Medications and Allergies Home Medications Medication Instructions Recorded Confirmed Type hydrochlorothiazide 25 mg tablet 25 mg PO DAILY 10/21/20 09/13/21 History losartan 50 mg tablet 100 mg PO DAILY 10/21/20 09/13/21 History pravastatin 20 mg tablet 20 mg PO DAILY 10/21/20 09/13/21 History aspirin 81 mg tablet,delayed 81 mg PO QPM 09/13/21 09/13/21 History release metformin 500 mg tablet,extended 2,000 mg PO QPM 09/13/21 09/13/21 History release 24 hr oxybutynin chloride 5 mg 5 mg PO QPM 09/13/21 09/13/21 History tablet,extended release 24 hr Allergies Allergy/AdvReac Type Severity Reaction Status Date / Time Sulfa (Sulfonamide Allergy Mild RASH Verified 09/13/21 09:13 Antibiotics) [SULFA (SULFONAMIDE ANTIBIOTICS)] Review of Systems Review of Systems Narrative: All other systems reviewed with the patient and are negative unless otherwise stated. Exam Vital Signs (past 8 hours): - 09/13/21 09:13 09/13/21 10:04 09/13/21 10:30 Temperature 101.9 F H Pulse Rate 103 H 65 100 H Respiratory Rate 16 Blood Pressure 131/61 156/72 H 150/62 H Pulse Oximetry 98 95 93 09/13/21 10:45 09/13/21 11:00 09/13/21 11:01 Temperature Pulse Rate 104 H 109 H 109 H Respiratory Rate Blood Pressure 166/77 H 200/80 H Pulse Oximetry 92 99 100 09/13/21 11:15 09/13/21 11:30 09/13/21 11:45 Temperature Pulse Rate 111 H 107 H 104 H Respiratory Rate Blood Pressure 177/75 H 165/74 H 163/75 H Pulse Oximetry 100 97 96 09/13/21 12:00 09/13/21 12:15 Temperature Pulse Rate 106 H 110 H Respiratory Rate 16 Blood Pressure 162/74 H 161/64 H Pulse Oximetry 99 99 Oxygen Delivery Method Room Air Narrative Exam Narrative: General:? Patient is well developed and well nourished, in no distress at this time. warm to touch HEENT:? Normocephalic, atraumatic, extraocular muscles intact, oral pharynx is clear and mucous membranes are moist. Neck: supple and symmetric, trachea is midline, no cervical adenopathy. Negative for JVD Chest:? Normal AP diameter and contour without kyphoscoliosis, no tachypnea, equal chest rise bilaterally. Lungs:? CTA b/l no wheezing rhonchi or rales. Cardio:?RRR no m/r/g. Abdomen: S NT ND. No CVA tenderness. Musculoskeletal:? Muscle strength and tone are equal within normal limits. back pain and tenderness, diffuse over low back but primarily left paraspinal area. Extremities: No edema cyanosis or clubbing. L 1st toe with ulceration, joint effusion, and erythema and warmth. No significant tenderness but limited by neuropathy. Skin:?Febrile ,dry and intact without rashes, ulcerations or petechiae other than noted above. Neuro:? Alert and orientated x3,? sensation to touch intact in all extremities, no gross deficits noted of cranial nerves. Bilateral peripheral neuropathy of lower extremities. Psych:? Patient has a well-kept appearance, appropriate affect, mental status attitude thought context and judgment are appropriate for age. Objective Labs Result Diagrams: 09/13/21 10:10 09/13/21 10:10 Labs: Laboratory Results - last 24 hr 09/13/21 09/13/21 09/13/21 10:10 10:10 10:10 WBC 13.9 H RBC 4.13 Hgb 12.2 Hct 36.7 MCV 89.0 MCH 29.6 MCHC 33.3 RDW 13.6 Plt Count 222 Neut % (Auto) 94.4 H Lymph % (Auto) 1.6 L [place] % (Auto) 3.5 Eos % (Auto) 0.1 L Baso % (Auto) 0.4 Neut # (Auto) 75659 H Lymph # (Auto) 200 L [place] # (Auto) 500 Eos # (Auto) 0 Baso # (Auto) 100 Sodium 131 L Potassium 3.4 Chloride 93 L Carbon Dioxide 26 BUN 27 H Creatinine 1.62 H Estimated GFR 32.1 L BUN/Creatinine Ratio 16.7 Glucose 256 H Lactate 3.8 H Calcium 9.8 Total Bilirubin 0.8 AST 63 H ALT 42 H Alkaline Phosphatase 105 Total Creatine Kinase 395 H CK-MB (CK-2) 1.23 CK-MB (CK-2) Rel Index 0.3 L Troponin I < 0.012 Total Protein 7.9 Albumin 4.5 Globulin 3.4 Albumin/Globulin Ratio 1.3 Lipase 38 SARS-CoV-2 (PCR) 09/13/21 12:03 WBC RBC Hgb Hct MCV MCH MCHC RDW Plt Count Neut % (Auto) Lymph % (Auto) [place] % (Auto) Eos % (Auto) Baso % (Auto) Neut # (Auto) Lymph # (Auto) [place] # (Auto) Eos # (Auto) Baso # (Auto) Sodium Potassium Chloride Carbon Dioxide BUN Creatinine Estimated GFR BUN/Creatinine Ratio Glucose Lactate Calcium Total Bilirubin AST ALT Alkaline Phosphatase Total Creatine Kinase CK-MB (CK-2) CK-MB (CK-2) Rel Index Troponin I Total Protein Albumin Globulin Albumin/Globulin Ratio Lipase SARS-CoV-2 (PCR) Negative Assessment & Plan Assessment & Plan narrative: 1. left 1st toe infection, possible septic arthritis, possible infected hardware - pending formal orthopedic surgery evaluation. - continue IV antibiotics ceftriaxone and vancomycin - Keep NPO so as not to delay possible operative interventions - IV pain control and nausea medications ordered - possible osteo noted on XR imaging, consider additional imaging or operative findings. - wound cultures obtained in the ER, blood cultures ordered after IV antibiotics given. - continue IV fluids 2. DM2 - check a1c - continue sliding scale for now. - hold home metformin in setting of MARGY. 3. rule out sepsis - given MARGY, fever to 103 and tachycardia, concern for sepsis but SOFA is currently 1 with MARGY. Will continue treatment as noted above. 4. HTN - hold home medications in setting of possible sepsis and MARGY 5. MARGY - likely due to infective process and recent nausea / vomiting. - continue to follow 6 obesity - contributes towards patient's diabetes and increases possibility of surgical site infection post - operatively. - increases risk of morbidity and mortality if septic. Code: Full, surrogate decision maker is patient's spouse DVT: hold chemical for now given possible OR Dispo: admitted as inpatient I have utilized all available immediate resources to obtain, update, or review the patient's current medications. Time Spent With Patient Critical Care time: I spent a total of [] minutes of critical care time on this patient's care today; this time is exclusive of procedural time.
[2021-09-13] MEDS: HYDROMORPHONE 0.5 MG INJ IV (13:54)
[2021-09-13] MEDS: diazePAM 10 MG/2 ML SYRINGE 5 MG IV ×2 (14:02→21:15)
[2021-09-13 14:18] LABS: Lactate 2HR (Lactic Acid Rflx) 3.9 mmol/L (0.7-2.1)
[2021-09-13 14:37] LABS: INR 1.1 (0.9-1.3); Prothrombin Time 12.2 SECONDS (10.1-12.7)
--- NOTE | 2021-09-13 14:38 | PC.NURSE ---
Patient given meds for back pain and anxiety per request for 01/01 'spasming lower back pain.. Bladder scan shows 48mls urine, patient says she last urinated at about 3am. Temporal temp reads 103.2, patient is visibly shivering, heart rate 121, bp 128/53. DR. Jason notified, orders received. IV bolus initiated, 1 liter O2 applied via nasal cannula for O2 sats intermittently dipping down to high to mid 80's. Blood culture pending.
[2021-09-13 14:39] LABS: PTT Partial Thromboplastin Tim 29 SECONDS (26.4-36.2)
[2021-09-13] MEDS: LACTATED RINGERS 1,000 ML 1000 ML IV ×3 (15:00→23:44)
[2021-09-13] MEDS: LACTATED RINGERS 1,000 ML 125 ML IV ×3 (15:01→20:27)
--- NOTE | 2021-09-13 15:31 | PC.NURSE ---
Event note: Patient HR 130's, normotensive. Per Dr. Jason, no telemetry monitoring.
--- NOTE | 2021-09-13 15:35 | PC.NURSE ---
Temp has increased to 103.4. notified, says to give toradol. Cooling measures initiated- IS, ice packs.
[2021-09-13 15:47] LABS: Appearance Urine UA SL CLOUDY; Bilirubin Urine UA NEGATIVE (NEGATIVE); Color Urine UA YELLOW; Glucose Urine UA TRACE g/dL (Negative); Ketones Urine UA TRACE (NEGATIVE); Leukocyte Esterase Urine UA 1+ (NEGATIVE); Nitrite Urine UA NEGATIVE (Negative); Occult Blood Urine UA NEGATIVE (Negative); Protein Urine UA 2+ (Negative); Specific Gravity Urine UA 1.025 (1.000-1.035); Urobilinogen Urine UA 0.2 E.U./dL (0.2)
[2021-09-13] MEDS: KETOROLAC 30 MG/ML VIAL 15 MG IV (15:50)
[2021-09-13 16:01] LABS: Bacteria Urine Few (2-10); RBC Urine None Seen (0-5/HPF); Squamous Epithelial Cell Urine 1-5 /HPF (0-5/HPF); WBC Urine 1-5/HPF (0-5/HPF)
--- NOTE | 2021-09-13 16:54 | P.CONS_ITS ---
History of Present Illness Consult details Date Patient Seen: 09/13/21 Time Patient Seen: 16:55 Chief complaint: Left big toe swollen- had screw put in 08/23 Reason for consult: Left toe infection Requesting provider: Carson Jason Narrative: 61-year-old female who was admitted today due to redness swelling of the left great toe. Patient was also having episodes of fevers chills and vomiting. Patient is status post surgery for hammertoe which was done on the 23 of August. Patient states she had sutures removed last week and at that point was having no issues with the toe. Started to have the vomiting over the weekend but did not notice any swelling or issues to the 1st toe. Also did not notice much iss ues when she went to bed last night. But this morning noticed significant amount of swelling to the toe as well as redness. Started to have more fevers and chills prompting her to come into the emergency room. In the emergency room patient was febrile with a positive white count. Patient was started on antibiotics and was admitted for further evaluation and concerns of sepsis. Meds Home Medications and Allergies Home Medications Medication Instructions Recorded Confirmed Type hydrochlorothiazide 25 mg tablet 25 mg PO DAILY 10/21/20 09/13/21 History losartan 50 mg tablet 100 mg PO DAILY 10/21/20 09/13/21 History pravastatin 20 mg tablet 20 mg PO DAILY 10/21/20 09/13/21 History aspirin 81 mg tablet,delayed 81 mg PO QPM 09/13/21 09/13/21 History release metformin 500 mg tablet,extended 2,000 mg PO QPM 09/13/21 09/13/21 History release 24 hr oxybutynin chloride 5 mg 5 mg PO QPM 09/13/21 09/13/21 History tablet,extended release 24 hr Allergies Allergy/AdvReac Type Severity Reaction Status Date / Time Sulfa (Sulfonamide Allergy Mild RASH Verified 09/13/21 09:13 Antibiotics) [SULFA (SULFONAMIDE ANTIBIOTICS)] Exam Vital Signs (past 8 hours): - 09/13/21 09:13 09/13/21 10:04 09/13/21 10:30 Temperature 101.9 F H Pulse Rate 103 H 65 100 H Respiratory Rate 16 Blood Pressure 131/61 156/72 H 150/62 H Pulse Oximetry 98 95 93 09/13/21 10:45 09/13/21 11:00 09/13/21 11:01 Temperature Pulse Rate 104 H 109 H 109 H Respiratory Rate Blood Pressure 166/77 H 200/80 H Pulse Oximetry 92 99 100 09/13/21 11:15 09/13/21 11:30 09/13/21 11:45 Temperature Pulse Rate 111 H 107 H 104 H Respiratory Rate Blood Pressure 177/75 H 165/74 H 163/75 H Pulse Oximetry 100 97 96 09/13/21 12:00 09/13/21 12:15 09/13/21 12:40 Temperature 100.4 F H Pulse Rate 106 H 110 H 111 H Respiratory Rate 16 18 Blood Pressure 162/74 H 161/64 H 126/53 L Pulse Oximetry 99 99 99 09/13/21 13:25 09/13/21 14:20 09/13/21 15:40 Temperature 103.2 F H 103.4 F H Pulse Rate 121 H 127 H Respiratory Rate 20 Blood Pressure 128/53 L 135/75 Pulse Oximetry 95 92 98 Oxygen Delivery Method Nasal Cannula Oxygen Flow Rate 1 Narrative Exam Narrative: On exam patient has significant swelling to the great toe. Rest of the foot is relatively uninvolved. No sign of any swelling involving the 2nd through 5th toes. No sign any involvement of the dorsal aspect of the foot or ankle. Patient has signs of drainage on her dressing no active drainage at this point. Signs of possible fluid collection to the dorsal aspect of the 1st toe. Objective Labs Result Diagrams: 09/13/21 10:10 09/13/21 10:10 Labs: Laboratory Results - last 24 hr 09/13/21 09/13/21 09/13/21 10:10 10:10 10:10 WBC 13.9 H RBC 4.13 Hgb 12.2 Hct 36.7 MCV 89.0 MCH 29.6 MCHC 33.3 RDW 13.6 Plt Count 222 Neut % (Auto) 94.4 H Lymph % (Auto) 1.6 L [place] % (Auto) 3.5 Eos % (Auto) 0.1 L Baso % (Auto) 0.4 Neut # (Auto) 54617 H Lymph # (Auto) 200 L [place] # (Auto) 500 Eos # (Auto) 0 Baso # (Auto) 100 PT INR APTT Sodium 131 L Potassium 3.4 Chloride 93 L Carbon Dioxide 26 BUN 27 H Creatinine 1.62 H Estimated GFR 32.1 L BUN/Creatinine Ratio 16.7 Glucose 256 H Lactate 3.8 H Calcium 9.8 Total Bilirubin 0.8 AST 63 H ALT 42 H Alkaline Phosphatase 105 Total Creatine Kinase 395 H CK-MB (CK-2) 1.23 CK-MB (CK-2) Rel Index 0.3 L Troponin I < 0.012 Total Protein 7.9 Albumin 4.5 Globulin 3.4 Albumin/Globulin Ratio 1.3 Lipase 38 Urine Color Urine Appearance Urine pH Ur Specific [place] Urine Protein Urine Glucose (UA) Urine Ketones Urine Occult Blood Urine Nitrate Urine Bilirubin Urine Urobilinogen Ur Leukocyte Esterase Urine RBC Urine WBC Ur Squamous Epith Cells Urine Bacteria Ur Culture Indicated? SARS-CoV-2 (PCR) 09/13/21 09/13/21 09/13/21 10:10 12:03 13:50 WBC RBC Hgb Hct MCV MCH MCHC RDW Plt Count Neut % (Auto) Lymph % (Auto) [place] % (Auto) Eos % (Auto) Baso % (Auto) Neut # (Auto) Lymph # (Auto) [place] # (Auto) Eos # (Auto) Baso # (Auto) PT 12.2 INR 1.1 APTT 29 Sodium Potassium Chloride Carbon Dioxide BUN Creatinine Estimated GFR BUN/Creatinine Ratio Glucose Lactate 3.9 H Calcium Total Bilirubin AST ALT Alkaline Phosphatase Total Creatine Kinase CK-MB (CK-2) CK-MB (CK-2) Rel Index Troponin I Total Protein Albumin Globulin Albumin/Globulin Ratio Lipase Urine Color Urine Appearance Urine pH Ur Specific [place] Urine Protein Urine Glucose (UA) Urine Ketones Urine Occult Blood Urine Nitrate Urine Bilirubin Urine Urobilinogen Ur Leukocyte Esterase Urine RBC Urine WBC Ur Squamous Epith Cells Urine Bacteria Ur Culture Indicated? SARS-CoV-2 (PCR) Negative 09/13/21 15:15 WBC RBC Hgb Hct MCV MCH MCHC RDW Plt Count Neut % (Auto) Lymph % (Auto) [place] % (Auto) Eos % (Auto) Baso % (Auto) Neut # (Auto) Lymph # (Auto) [place] # (Auto) Eos # (Auto) Baso # (Auto) PT INR APTT Sodium Potassium Chloride Carbon Dioxide BUN Creatinine Estimated GFR BUN/Creatinine Ratio Glucose Lactate Calcium Total Bilirubin AST ALT Alkaline Phosphatase Total Creatine Kinase CK-MB (CK-2) CK-MB (CK-2) Rel Index Troponin I Total Protein Albumin Globulin Albumin/Globulin Ratio Lipase Urine Color Yellow Urine Appearance Sl cloudy Urine pH 5.0 Ur Specific [place] 1.025 Urine Protein 2+ H Urine Glucose (UA) Trace H Urine Ketones Trace H Urine Occult Blood Negative Urine Nitrate Negative Urine Bilirubin Negative Urine Urobilinogen 0.2 Ur Leukocyte Esterase 1+ H Urine RBC None seen Urine WBC 1-5/hpf Ur Squamous Epith Cells 1-5 /hpf Urine Bacteria Few (2-10) H Ur Culture Indicated? Culture not indicate SARS-CoV-2 (PCR) PFSH Medical History Diabetes Hyperlipidemia Hypertension Surgical History H/O foot surgery History of cholecystectomy Family History Mother Diabetes mellitus Father Diabetes mellitus Other Hypertension Social History household members: spouse Tobacco & Substance Use Smoking Status: Never smoker alcohol intake: current Assessment & Plan Assessment & Plan narrative: Patient with signs of a postsurgical infection involving the left 1st toe. Due to physical exam findings as well as the systemic affects I would recommend surgery to irrigate and debride the 1st toe. This will hopefully help resolve her systemic changes as well as avoid any long-term issues with her foot. I went over the particular risk and limitations associated with procedure and all of her questions and concerns were answered to her full satisfaction. The risk, benefits, alternatives, possible complications, operative course, and postop outcomes were discussed. Complications including but not limiting to bleeding, infection, fracture, nerve injury, continued pain postoperatively or instability postoperatively were discussed in detail. Medical complications including but not limited to deep venous thrombosis event, anesthesia complications with excessive bleeding, vascular events or cardiac events and other possible complications were discussed in detail. Need for postoperative rehabilitation and anticipated hospital stay and clinical course were discussed in detail. Patient acknowledges understanding and elects to proceed with surgery. Time Spent With Patient Critical Care time: I spent a total of [] minutes of critical care time on this patient's care today; this time is exclusive of procedural time.
--- NOTE | 2021-09-13 17:09 | PC.NURSE ---
1645: Temp 105.[address] Yang notified, Tylenol suggested, declined further orders. 50 ml, chidi.
--- NOTE | 2021-09-13 17:12 | PC.NURSE ---
Pre op AC note: Patient awake, alert, and oriented, voided additional 50 ml prior to surge[address]. Dr. Yang at bedside, aware of temp 105.6. Off AC floor to PRE OP with Roque RN.
--- NOTE | 2021-09-13 18:30 | SUR.OPER ---
Supine on padded OR bed, head on pillow, arms secured on padded arm boards at <90 degrees abduction, legs uncrossed, safety belt at thigh, tape over blanket over lower legs.
--- NOTE | 2021-09-13 18:42 | PM.PREOP ---
Pre-operative Note COVID-19 Criteria for continued procedure: Expected advancement of disease process, Possibility delay results in more complex future surgery or treatment, Increased loss of function, Continuing or worsening of significant or severe pain, Deterioration of the patient's condition or overall health and Delay expected to result in less-positive ultimate med/surg outcome Interval Note History & Physical reviewed/Exam performed by Physician: Yes Changes to H&P: No
[2021-09-13] MEDS: BUPIVACAINE 0.25% (PF) 30 ML, EPINEPHrine 0.15 MG INJ (19:22)
--- NOTE | 2021-09-13 19:36 | PM.OP.1 ---
Operative Date/Time/Diagnoses Date of procedure: 09/13/21 Time of procedure: 18:40 Pre-op diagnosis: Left great toe postsurgical infection Post-op diagnosis: same Procedure & Clinicians Procedure: Left 1st toe irrigation and debridement Same procedure as scheduled: Yes Indications: Left 1st toe infection Surgeon: Dano Yang Click Yes if Unassisted: Yes Anesthesia Type: General Operative Notes Findings: Purulence to both the dorsal and plantar aspect of the great toe. Signs of loosening of the screw in the distal phalanx. Majority of the purulence was to the dorsal aspect affecting the soft tissue as well as possible bone. Drainage from both the dorsal and plantar aspect of the great toe. Closure Type: primary Specimen(s): other (Culture swabs as well as soft tissue and bone were sent for cultures and sensitivity as well as a aerobic and anaerobic.) Estimated Blood Loss (mL): 0 Tourniquet time (min): 21 Procedure in detail: On date of service, patient was met in the holding area where her operative site was signed and witnessed by the OR staff. Surgeries once again discussed with the patient in remaining questions or concerns she had were answered fully. Patient was taken back to the operating theater placed on the operating table in a supine position. Great care was taken to ensure that all bony prominences were appropriately padded and a well-padded tourniquet was placed along the left calf. Time-out was performed verifying patient's name, procedure, and operative site. The leg was elevated for exsanguination and the tourniquet was turned up to 250 mmHg. Longitudinal incision was made along the dorsal aspect of the great toe starting at the nail fold going down to the metatarsal joint. Ten blade was used to incise through skin and fascial tissue. Swabs were taken and sent for cultures. Deep knife was then used. Fifteen blade was used to excise the necrotic tissue from a draining sinus track on the dorsal aspect of the toe. Fifteen blade was then used to sharply excise some of the necrotic surrounding tissue to the dorsal aspect of the toe. This was then sent for cultures and sensitivities. [place] was then used to also debride the dorsal aspect of the toe and a small amount of bone was removed from the proximal 5th phalanx and sent for cultures and sensitivity. Patient also had an area of drainage from the plantar aspect of the toe. Ten blade was used to incise the skin and fascial tissue. Fifteen blade was then used to sharply excise the draining tract and the surrounding necrotic tissue. [place] was used to continue to debride the plantar aspect of the 1st toe. The screws seemed to be loose in the distal phalanx but still securely into the proximal phalanx. Fifteen blade had been used to sharply excise both skin soft tissue down to bone. A small piece of bone as mentioned previously was sent for cultures and sensitivity. The wound was copiously irrigated both dorsally and plantarly. The wound was then packed and then closed with nylon loosely. The foot was then cleaned, dried, and dressed and patient was taken to the PACU in stable condition Complications: none Post-operative Plan for aftercare: Patient will need a wound check morning. Patient might possibly need repeat irrigation and debridement depending on how the toe looks .
--- NOTE | 2021-09-13 22:33 | PC.NURSE ---
Addendum entered by Kim Merino R.N. 09/13/21 22:42: Placed on contact isolation as wound culture is showing gm + cocci on gram stain. Original Note: Patient returned from surgery at 2026. Is alert and oriented. Breath sounds CTA with sat of 96% on oxygen at 2L/min per NC; will work on titrating O2 during this shift. HRR but tachy initially at 113 and then down to 108 at 2100. BP at 2129 was low at 85/44 but was asymptomatic and Kingsley HENSON, was informed and order received for bolus. Denied nausea. Given ice chips, water and apple juice to drink. BT hypoactive and not passing flatus as yet. Last voided at 1700. Needing some assistance to reposition in bed. Complained of muscle spasms in back and was medicated with Valium at 2114 with relief obtained. Denied any pain in surgical site. Dressing to left foot/toe is CDI; covered with reynaldo wrap. Has chronic bilateral foot neuropathy so unable to feel touch to toes but is able to move them and has good cap refill. Left leg is elevated on pillows and foot of bed is also elevated. Right calf SCD applied. Working with I.S. Fall risk score is moderate and bed alarm is activated.
[2021-09-14] VITALS (11 sets, daily range): BP systolic 101–117; BP diastolic 47–65; PULSE 90–103; RESP 16–18; TEMP 37–37.6; O2SAT 92–98
[2021-09-14] MEDS: LACTATED RINGERS 1,000 ML 175 ML IV ×4 (03:50→23:58)
[2021-09-14 03:59] LABS: Enterococcus species Not Detected (Not Detect); Listeria monocytogenes Not Detected (Not Detect); Methicillin-resistant gene Not Detected (Not Detect); Staphylococcus species Detected (Not Detect); Streptococcus species Not Detected (Not Detect)
[2021-09-14 04:00] LABS: Acinetobacter baumannii Not Detected (Not Detect); Candida albicans Not Detected (Not Detect); Candida glabrata Not Detected (Not Detect); Candida krusei Not Detected (Not Detect); Candida parapsilosis Not Detected (Not Detect); Candida tropicalis Not Detected (Not Detect); E. coli Not Detected (Not Detect); Enterobacter cloacae complex Not Detected (Not Detect); Enterobacteriaceae species Not Detected (Not Detect); Haemophilus influenzae Not Detected (Not Detect); Neisseria meningitidis Not Detected (Not Detect); Proteus species Not Detected (Not Detect); Pseudomonas aeruginosa Not Detected (Not Detect); Serratia marcescens Not Detected (Not Detect); Streptococcus agalactiae (Gr B Not Detected (Not Detect); Streptococcus pneumonia Not Detected (Not Detect); Streptococcus pyogenes (Gr A) Not Detected (Not Detect)
[2021-09-14] MEDS: VANCOMYCIN 1,250 MG/250 ML PIGGYBACK 250 MG IV (06:27)
[2021-09-14 06:29] LABS: Hematocrit 30.5 % (36-46); Hemoglobin 10.4 g/dL (12.0-16.0); Mean Corpuscular Hemoglobin 30.3 PG (26-34); Mean Corpuscular Volume 89.1 fL (80-100); Platelet Count 124 X10^3/uL (150-400); Red Blood Cell Count 3.42 X10^6/uL (4.0-5.2); White Blood Cell Count 8.9 X10^3/uL (4.5-11.0)
[2021-09-14] MEDS: cefTRIAXone 1,000 MG in SODIUM CHLORIDE 0.9% 100 ML 200 ML IV (08:30)
[2021-09-14] MEDS: INSULIN LISPRO 100 UNIT/ML 3ML VIAL SUBCUT ×3 (08:30→20:38)
[2021-09-14] MEDS: PRAVASTATIN 20 MG TABLET PO (08:30)
[2021-09-14] MEDS: HYDROCODONE/ACET 5/325 TABLET 2 TAB PO ×2 (08:31→11:43)
--- NOTE | 2021-09-14 09:25 | PT.IIE ---
Surgery Performed Operation Date: 09/13/21 18:00 Actual Procedures p Incision and Drainage Wound/Extremity(Left) - Dano Yang MD Medical History (Last Reviewed 09/13/21 @ 17:15 by Tai Vann DO) Diabetes Hyperlipidemia Hypertension Physical Therapy Inpatient Evaluation/Re-Eval M1 PT/OT-IP Prior Functional Status Start: 09/14/21 12:27 Freq: NEEDED Status: Active Protocol: Document 09/14/21 09:25 AB (Rec: 09/14/21 12:44 AB [email or web address]) Medical Review Prior Functional Status Medical History Reviewed Yes Communication able to make needs known Mobility and Gait pt stated that she is modified independent with all mobilities and ambulation without AD Social History Household Members spouse Living Arrangements House Number of Floors (Floors) One Floor Number of Stairs To Enter/Railing? no steps to enter Home Environment High Toilet,Walk in Shower, Built-In Shower Seat Home Equipment Straight Cane,Hand Held Shower ,Grab Bars Near Toilet,Grab Bars In Shower Additional Social History Comment pt has an adjustable bed M2 PT-IP Current Condition Start: 09/14/21 12:27 Freq: NEEDED Status: Active Protocol: Document 09/14/21 09:25 AB (Rec: 09/14/21 12:44 AB [id number]) Physical Therapy Current Condition Current Condition Evaluation Date 09/14/21 Treatment Diagnosis h/o L great toe fusion s/p I&D ; difficulty in walking Onset Date 09/13/21 M3 PT-IP Subjective Start: 09/14/21 12:27 Freq: NEEDED Status: Active Protocol: Document 09/14/21 09:25 AB (Rec: 09/14/21 12:44 AB [email or web address]) Subjective Physical Therapy Visit Type Type Initial Evaluation Visit Start Time 09:25 Visit Stop Time 10:15 Total Visit Minutes 50 Number of ARRANGER ASSEMBLER Visits 0 Physical Therapy Visit Comments Patient Comments pt is agreeable to do PT Therapy Pain Assessment Pain When Pain Assessed At Rest Pain Present Pain Present Pain Reported Location lower back Intensity 4 Scale Used Numeric (0 - 10) Pain Management Techniques Distraction,Modification of Treatment,Re-positioning, Timing of Activity with Medications M4 PT-IP Mobility and Gait Start: 09/14/21 12:27 Freq: NEEDED Status: Active Protocol: Document 09/14/21 09:25 AB (Rec: 03/23/22 12:44 [id number]) PT-Bed Mobility Assessment Rolling Type of Rolling Log Rolling Level of Assist Maximal Assistance Supine to Sit Supine to Sit Maximum Assistance,1 Person Assistance Sit to Supine Sit to Supine Maximum Assistance,1 Person Assistance PT-Transfer Assessment Sit to and From Stand Sit to and from Stand Maximum Assistance,2 Person Assistance,Use of Upper Extremities Equipment Transfer Assistive Device Gait Belt,Front Wheeled Walker Orthotic/Prosthetic Devices or Brace: No Comments Mobility Comments educated pt on NWB on LLE. O2 sat with 1L/min O2: 94%. assessed O2 sat at room air and decreased to 85%. put O2 back on pt with O2 sat went up to 92%. pt completed supine to sit max A and max cues. c/ o LBP and stated that she has been laying in bed for the whole day yesterday since she was not feeling well. able to sit on EOB CGA. instructed on how to maintain NWB on LLE with sit to stand and standing using FWW. completed sit to stand max A x 2 and max cues. pt unable to take steps but able to pivot sideways towards HOB for positioning using FWW max A x 2 and max cues. completed sit to supine max A and max cues. positioned pt in bed . call light and table placed within reach. spouse step in towards end of PT session. informed pt and spouse regarding current mobility level and d/c recommendation fo SNF at this time but also informed spouse regarding pt's equipement needs: w/c and FWW when pt d/c home. pt and spouse understood. informed director of casework services. Gait Assessment Comments Gait Comments unable at this time PT-Balance Assessment Sitting Balance and Reactions Static Sitting Balance Ability Good Dynamic Sitting Balance Ability Good Standing Balance and Reactions Static Standing Balance Ability Poor Dynamic Standing Balance Ability Poor Device Used FWW M5 PT-IP Objective Assessments Start: 09/14/21 12:27 Freq: NEEDED Status: Active Protocol: Document 09/14/21 09:25 (Rec: 09/14/21 12:44 [email or web address]) Orientation Orientation/Cognition Level of Alertness Alert Orientation Name Language Function Ability No Deficits Noted Safety Awareness Decreased Safety Awareness Memory Description Short Term Impaired Gross Range of Motion Lower Extremity ROM Assessment Within Functional Limits Strength Lower Extremity Strength Assessment Bilaterally Impaired Comments Strength Comments RLE: 3+/5 LLE: 3-/5 Muscle Tone Muscle Tone WNL Yes M6 PT-IP Treatment Start: 09/14/21 12:27 Freq: NEEDED Status: Active Protocol: Document 09/14/21 09:25 AB (Rec: 09/14/21 12:44 AB [id number]) Physical Therapy Treatment Education Education Provided Weight Bearing Status,Safety M7 PT-IP Assessment and Plan Start: 09/14/21 12:27 Freq: NEEDED Status: Active Protocol: Document 09/14/21 09:25 AB (Rec: 09/14/21 12:44 AB [email or web address]) PT Summary Assessment and Plan Potential Rehabilitation Potential Fair Status of Condition at Evaluation Evolving Summary Impairments Pain,ROM,Strength,Balance, Coordination,Sensation,Tone, Cognition,Bed Mobility, Transfers,Gait,Activity Tolerance Assessment Summary pt requiring max A x 2 for standing and transfers using FWW but unable to ambulate at this time. pt will require SNF rehab. pt and spouse informend regarding d/c recommendation. will continue to assess progress. Goals Bed Mobility Goal Standby Assistance Transfer Goal Contact Guard Assistance,Front Wheeled Walker Gait Goal Contact Guard Assistance,Front Wheel Walker Gait Distance 25 Days to Meet Goals 10 Frequency of Treatment Frequency Of Treatment Once a Day Treatment Plan Physical Therapy Treatment Plan Bed Mobility Training,Transfer Training,Gait Training, Therapeutic Exercise,Balance Retraining,Post Op Education, Discharge Planning,Hot or Cold Pack,Neuromuscular Re-ed, Coordination Retraining,Manual Therapy Weight Bearing Status Weight Bearing Status Non-Weight Bearing Allowed Weight Bearing Amount (enter % LLE NWB or #) (%) Recommendations To Nursing Amount of Assist Needed 2 Person Assist Discharge Recommendations PT Discharge Recommendations SNF Rehab Transportation Needs at Discharge Wheelchair/Cabulance
--- NOTE | 2021-09-14 11:24 | CM.DANOTE ---
Patient is a 61 yo female who was admitted on 09/13/21 for Left big toe Swollen. Pt has [employer] and [facility] for insurance and her PCP is Jennifer Lopez. EMR was reviewed. Per MD, pt with recent ortho surgery and now admitted for possible septic hardware vs osteomyelitis. Per Ortho Consult, pt taken to surg for I&D and will review pt's toe tomorrow to determine if further I&D needed again. Pt likely will need bag printer IV-Abx post discharge pending cultures. Per PT, pt currently a 2PA and current recommendation is SNF. SW met bedside with pt and spouse and explained role and they confirm they live in a one story house on [address] [facility] and pt is typically independent at baseline and they deny any hx of HH or SNF and both are retired and therefore spouse available for assist. SW discussed current 2PA and they confirm that if pt remains 2PA then home is not a safe option but pt is hopeful she will progress enough to safely go home and would be agreeable with HH as well. SW provided SNF/HH Choice list to review and discussed need for BCBS [employer] auth if SNF needed and would need to be a contracted facility and they acknowledge understanding. They will review the list to determine their SNF preference as a back up if pt does not improve with mobility. SW provided the DME list as well as spouse will begin determining if any loaner equipment available on [facility] for w/c and walker etc... in case pt can go home. SW discussed options for bag printer IV-Abx and pt and spouse aware that this could be managed at SNF but if she improves enough for home then Home Infusion could be an option and would run pt's insurance to determine any out of pocket expense. SW made referral to [facility] in case home infusion needed but no SNF or HH referral made yet as awaiting further PT and pt/spouse review of HH/SNF Choice list to determine their preference. Plan: SW to follow closely for SNF vs home with [facility] and new HH referral pending progress and needs. LYNDSAY Shah Discharge Planning/Care Management CM Discharge Assessment Start: 09/14/21 11:10 Freq: Status: Active Protocol: Document 09/14/21 11:11 BF (Rec: 09/14/21 11:23 BF [id number]) Discharge Planning Assessment Assigned Resource Engineer Nkechi, RESEARCH HYDROLOGIST DPOA/Assigned Designee Name spouse Jerod Contact Information [phone] Advance Directives? No Advance Directives on File No History Provided By Patient,Significant Other, Medical Record Has Patient been admitted in last 30 Yes days? Comment Was last admitted 08/23/21 from Ortho Surg with screw in her toe Prior Living Arrangements House Household Members spouse Type of transporation used prior to Drives own vehicle admit Independent with ADL's Yes Is patient alert and oriented? Yes Caregiver for Another No Patient/Family Preference [facility] Facility,Home with Home Health Barriers to Discharge Yes Comment Will need insurance auth if SNF Discharge Plan [facility] Community [facility] Physical Therapy,IV Therapy Transportation Arrangement spouse if safe for home vs SNF facility vehicle Referrals Initiated Penitentiary,Home Health, Other Additional Comment Home infusion Medicare Choice List Provided Yes SNF/HH Preference pt and spouse reviewing to determine their preferences Whiteboard Updated in Patient Room with Yes name and ext. # of Resource Engineer Review Status In Process Please Provide Date Initial DC 09/14/21 Assessment Was Performed Next Review Type Continued Stay Review
--- NOTE | 2021-09-14 12:50 | DI.MRI.S_ITS ---
PROCEDURE: MR LUMBAR SPINE WO/W CON INDICATIONS: bacteremia, severe back pain, weakness, r/o spinal infection TECHNIQUE: Noncontrast sagittal T1 spin echo and T2 fast spin echo, sagittal STIR, axial T1 and T2 fast spin echo through the lumbar spine. In cases with scoliosis, additional coronal T2 fast spin echo may be performed. After the administration of contrast, sagittal and axial T1 spin echo with fat saturation through the lumbar spine. COMPARISON: None. FINDINGS: Image quality: Degraded by patient motion artifact. Alignment and curvature: There is trace L1-L2 and L2-L3 retrolisthesis. Marrow: Mixed Modic type 1 and type 2 reactive endplate changes noted adjacent to the L1-L2 and L2-L3 discs. No acute vertebral body compression fractures. No suspicious marrow enhancement. Spinal cord: Conus medullaris terminates at the L1 level. Visualized spinal cord demonstrates normal signal, without suspicious enhancement. Paraspinous soft tissues: No paravertebral masses or abnormal enhancement. T12-L1: Loss of disc signal and height. Mild, diffuse disc bulge. Mild narrowing of the central canal. No neural foraminal narrowing. No neural compression. L1-L2: Loss of disc signal and height. Fluid signal noted within the intervertebral disc space. No significant postcontrast enhancement identified in the intervertebral disc space. No endplate osteolysis. Moderate, diffuse disc bulge. Mild bilateral facet hypertrophy. [id number] narrowing of the central canal. Moderate bilateral neural foraminal narrowing. L2-L3: Loss of disc signal and height. Fluid signal noted within the intervertebral disc space. No significant postcontrast enhancement identified in the intervertebral disc space. No in plate osteophytosis. Mild, diffuse disc bulge. [id number]-[id number] bilateral facet hypertrophy. Moderate to severe ligamentum flavum hypertrophy. Moderate narrowing of the central canal. Severe right and moderate left neural foraminal narrowing with compression of the exiting right L2 nerve root. L3-L4: Loss of disc signal. Moderate, diffuse disc bulge. [id number] bilateral facet hypertrophy. Mild to moderate narrowing of the central canal. Mild to moderate bilateral neural foraminal narrowing. No neural compression. L4-L5: Loss of disc signal. Moderate, diffuse disc bulge. Severe bilateral facet hypertrophy. Mild ligamentum flavum hypertrophy. Moderate to severe narrowing of the central canal. Mild to moderate bilateral neural foraminal narrowing. No neural compression L5-S1: Disc has a normal appearance. Mild bilateral facet hypertrophy. No central stenosis. No neural foraminal narrowing. No neural compression. IMPRESSION: 1. Fluid signal within the L1-L2 and L2-L3 intervertebral disc space without associated postcontrast enhancement or endplate osteolysis. Finding likely represents chronic reactive change, however earliest manifestation of discitis cannot be completely excluded. Recommend correlation with clinical and laboratory data and short-term follow-up MRI of the lumbar spine and 1 week. 2. No epidural abscess. 3. Multilevel degenerative disc disease. 4. Multilevel facet arthropathy. 5. Moderate to severe L4-L5 central canal narrowing. 6. Severe right L2-L3 neural foraminal narrowing with compression of the exiting right L2 nerve root. Dictated by: Katt Rivas MD, PhD on 09/14/2021 at 15:44 Approved by: Katt Rivas MD, PhD on 09/14/2021 at 15:57
[2021-09-14] MEDS: HYDROMORPHONE 1 MG INJ 0.7 MG IV (14:28)
[2021-09-14] MEDS: diazePAM 10 MG/2 ML SYRINGE 5 MG IV (14:28)
--- NOTE | 2021-09-14 15:25 | P.PN_ITS ---
Subjective Subjective Date Patient Seen: 09/14/21 Time Patient Seen: 15:26 Interval history: 61 year old female admitted with L 1st toe infection after recent screw insertion. Was very febrile overnight. Blood cultures with staph aureus as are wound cultures. Fevers are much better today, as is patient's symptoms. Still with LE weakness today, and persistent back pain not relieved despite multiple pain medications. Exam Vital Signs (past 8 hours): - 09/14/21 07:45 09/14/21 08:00 09/14/21 11:03 Temperature 99.6 F Pulse Rate 103 H Respiratory Rate 17 Blood Pressure 110/50 L Pulse Oximetry 96 95 94 09/14/21 11:58 09/14/21 12:00 Temperature 99.4 F Pulse Rate 102 H Respiratory Rate 17 Blood Pressure 115/51 L Pulse Oximetry 93 93 Oxygen Delivery Method Room Air Oxygen Flow Rate 0 Narrative Exam Narrative: General:? Patient is well developed and well nourished, in no distress at this time. warm to touch HEENT:? Normocephalic, atraumatic, extraocular muscles intact, oral pharynx is clear and mucous membranes are moist. Neck: supple and symmetric, trachea is midline, no cervical adenopathy. Negative for JVD Chest:? Normal AP diameter and contour without kyphoscoliosis, no tachypnea, equal chest rise bilaterally. Lungs:? CTA b/l no wheezing rhonchi or rales. Cardio:?RRR no m/r/g. Abdomen: S NT ND. MSK: left foot dressing c/d/i. bilateral and equal weakness, strength +4/5. Ext: no edema Objective Labs Result Diagrams: 09/14/21 06:14 09/13/21 10:10 Labs: Laboratory Results - last 24 hr 09/13/21 09/14/21 09/14/21 15:15 06:14 10:15 WBC 8.9 RBC 3.42 L Hgb 10.4 L Hct 30.5 L MCV 89.1 MCH 30.3 MCHC 34.0 RDW 14.0 Plt Count 124 L Urine Color Yellow Urine Appearance Sl cloudy Urine pH 5.0 Ur Specific [place] 1.025 Urine Protein 2+ H Urine Glucose (UA) Trace H Urine Ketones Trace H Urine Occult Blood Negative Urine Nitrate Negative Urine Bilirubin Negative Urine Urobilinogen 0.2 Ur Leukocyte Esterase 1+ H Urine RBC None seen Urine WBC 1-5/hpf Ur Squamous Epith Cells 1-5 /hpf Urine Bacteria Few (2-10) H Ur Culture Indicated? Culture not indicate A. baumannii (PCR) Not detected Teresa albicans (PCR) Not detected C. glabrata (PCR) Not detected C. krusei (PCR) Not detected C. parapsilosis (PCR) Not detected C. tropicalis (PCR) Not detected Enterobacteriac sp PCR Not detected E. cloacae complex PCR Not detected Enterococcus sp PCR Not detected E. coli (PCR) Not detected H. influenzae (PCR) Not detected Klebsiella oxytoca PCR Not detected Klebsiella pneumoniae Not detected List. monocytogenes PCR Not detected N. meningitidis (PCR) Not detected Proteus species (PCR) Not detected Serratia marcescens PCR Not detected Staphylococcus sp PCR Detected H Staph aureus (PCR) Detected H mecA-Methicil Res Gene Not detected Streptococcus sp PCR Not detected Group A Strep (PCR) Not detected Strep agalactiae (PCR) Not detected Strep pneumoniae (PCR) Not detected P. aeruginosa (PCR) Not detected Young/B-Vanco Res Genes Not Reportable KPC-Carbap Res Gene PCR Not Reportable PFSH Medical History Diabetes Hyperlipidemia Hypertension Surgical History H/O foot surgery History of cholecystectomy Family History Mother Diabetes mellitus Father Diabetes mellitus Other Hypertension Social History household members: spouse Smoking Status: Never smoker alcohol intake: current Assessment & Plan Assessment & Plan narrative: 1. left 1st toe postoperative infection, staph aureus bacteremia, osteomyelitis, acute, present on admission ?- s/p I&D with orthopedic surgery on 09/13. Possible repeat washout tomorrow per Dr. Yang operative note. - continue broad spectrum antibiotics pending speciation and sensitivites. - repeat blood cultures to check clearance, order TTE - patient with persistent back pain today, given staph bacteremia, continued LE weakness, proceed with MRI with contrast to evaluate for possible spinal abscess. - will need likely 6 weeks of IV antibiotics for osteomyelitis which should treat any possible bacteremia and / or endocarditis. 2. DM2 ?- check a1c ?- continue sliding scale for now. ?- hold home metformin in setting of MARGY. 3. rule out sepsis ?- given MARGY, fever to 103 and tachycardia, concern for sepsis but SOFA is currently 1 with MARGY. Will continue treatment as noted above. 4. HTN ?- hold home medications in setting of possible sepsis and MARGY 5. MARGY ?- likely due to infective process and recent nausea / vomiting. ?- continue to follow 6 obesity ?- contributes towards patient's diabetes and increases possibility of surgical site infection post - operatively. contributed towards patient's presentation Code: Full, surrogate decision maker is patient's spouse DVT: hold chemical for now given possible OR Dispo: admitted as inpatient I have utilized all available immediate resources to obtain, update, or review the patient's current medications. Time Spent With Patient Critical Care time: I spent a total of [] minutes of critical care time on this patient's care today; this time is exclusive of procedural time.
--- NOTE | 2021-09-14 15:45 | P.PN_ITS ---
Subjective Subjective Date Patient Seen: 09/14/21 Time Patient Seen: 15:45 Interval history: Just returned from spinal MRI to r/o abscess. Feeling well, good pain control. Exam Vital Signs (past 8 hours): - 09/14/21 08:00 09/14/21 11:03 09/14/21 11:58 Temperature 99.4 F Pulse Rate 102 H Respiratory Rate 17 Blood Pressure 115/51 L Pulse Oximetry 95 94 93 09/14/21 12:00 Temperature Pulse Rate Respiratory Rate Blood Pressure Pulse Oximetry 93 Oxygen Delivery Method Room Air Oxygen Flow Rate 0 Narrative Exam Narrative: Full ROM in bilateral lower extremities, sensation to light touch intact. Calves soft, compressible, nontender and without palpable cords or masses. Objective Labs Result Diagrams: 09/14/21 06:14 09/13/21 10:10 Labs: Laboratory Results - last 24 hr 09/13/21 09/14/21 09/14/21 15:15 06:14 10:15 WBC 8.9 RBC 3.42 L Hgb 10.4 L Hct 30.5 L MCV 89.1 MCH 30.3 MCHC 34.0 RDW 14.0 Plt Count 124 L Urine Color Yellow Urine Appearance Sl cloudy Urine pH 5.0 Ur Specific [place]ines 1.025 Urine Protein 2+ H Urine Glucose (UA) Trace H Urine Ketones Trace H Urine Occult Blood Negative Urine Nitrate Negative Urine Bilirubin Negative Urine Urobilinogen 0.2 Ur Leukocyte Esterase 1+ H Urine RBC None seen Urine WBC 1-5/hpf Ur Squamous Epith Cells 1-5 /hpf Urine Bacteria Few (2-10) H Ur Culture Indicated? Culture not indicate A. baumannii (PCR) Not detected Teresa albicans (PCR) Not detected C. glabrata (PCR) Not detected C. krusei (PCR) Not detected C. parapsilosis (PCR) Not detected C. tropicalis (PCR) Not detected Enterobacteriac sp PCR Not detected E. cloacae complex PCR Not detected Enterococcus sp PCR Not detected E. coli (PCR) Not detected H. influenzae (PCR) Not detected Klebsiella oxytoca PCR Not detected Klebsiella pneumoniae Not detected List. monocytogenes PCR Not detected N. meningitidis (PCR) Not detected Proteus species (PCR) Not detected Serratia marcescens PCR Not detected Staphylococcus sp PCR Detected H Staph aureus (PCR) Detected H mecA-Methicil Res Gene Not detected Streptococcus sp PCR Not detected Group A Strep (PCR) Not detected Strep agalactiae (PCR) Not detected Strep pneumoniae (PCR) Not detected P. aeruginosa (PCR) Not detected Young/B-Vanco Res Genes Not Reportable KPC-Carbap Res Gene PCR Not Reportable [facility] Medical History Diabetes Hyperlipidemia Hypertension Surgical History H/O foot surgery History of cholecystectomy Family History Mother Diabetes mellitus Father Diabetes mellitus Other Hypertension Social History household members: spouse Smoking Status: Never smoker alcohol intake: current Assessment & Plan Post-op Assessment and plan (1) H/O foot surgery: Assessment and Plan narrative: POD# 1 s/p I&D of left great toe. Dr Yang or I will check wound tomorrow and determine whether another washout is needed. Will make NPO after midnight in anticipation of further surgery. (2) Cellulitis: Postoperative Procedures: Procedures Operation Date: 09/13/21 18:00 Actual Procedure Side Surgeon p Incision and Drainage Wound/Extremity Left Dano Yang MD
[2021-09-14] MEDS: GABAPENTIN 300 MG CAPSULE PO ×2 (15:46→20:36)
[2021-09-14] MEDS: ACETAMINOPHEN 325 MG TABLET 975 MG PO ×2 (15:46→20:38)
--- NOTE | 2021-09-14 16:00 | DI.ECHO.S_ITS ---
[facility] +---------+ : : [address] [place] : : : : [id number] : : : : Phone: [phone]+ Echocardiogram Report + + :Name: GIGI JAMES Study Date: 09/15/2021 Height: 68 in : :[facility] ReadingLocation: Weight: 220 lb : : Gender: Female BSA: 2.1 m2 : :: 1960 Age: 61 yrs BP: 126/53 mmHg: :Reason For Study: ENDOCARDITIS : : Performed By: Leonel Chicas : :Referring: DELFINA KLINE : + + Interpretation Summary The ejection fraction is estimated to be 60-65%. The right ventricle is at the upper limits of normal in size. There is mild tricuspid regurgitation. The right ventricular systolic pressure is estimated to be at least 60 mmHg based on an estimated right atrial pressure of 15 mm Hg. Compared to the prior echo exam, there has been an increase in the severity of pulmonary hypertension. Procedure: A two-dimensional transthoracic echocardiogram with color flow and Doppler was performed. The study quality was technically adequate. Comparison is made with the echocardiogram of 10/16/18. The patient was in normal sinus rhythm during the exam. Left Ventricle: The left ventricle is normal in size. There is normal left ventricular wall thickness. There is no echo evidence for significant left ventricular outflow tract obstruction. The ejection fraction is estimated to be 60-65%. There are no focal wall motion abnormalities. Right Ventricle: The right ventricle is at the upper limits of normal in size. The right ventricular systolic function is normal. Atria: Both atria are normal in size. There is no Doppler evidence for an atrial septal defect. Mitral Valve: The mitral valve is normal in structure and function. There is no mitral regurgitation noted. Aortic Valve: The aortic valve is trileaflet. The aortic valve opens well. No aortic regurgitation is present. Tricuspid Valve: The tricuspid valve is normal in structure and function. There is mild tricuspid regurgitation. The right ventricular systolic pressure is estimated to be at least 60 mmHg based on an estimated right atrial pressure of 15 mm Hg. Compared to the prior echo exam, there has been an increase in the severity of pulmonary hypertension. Pulmonic Valve: The pulmonic valve is normal in structure and function. There is trace pulmonic regurgitation. Great Vessels: The aortic root is normal size. The ascending aorta is mildly enlarged. The pulmonary artery is normal size. The IVC is dilated (diameter is greater than 2.1 cm) and it collapses less than 50% with a sniff. This suggests a high right atrial pressure of 15 mm Hg. Pericardium/ Pleura There is no pericardial effusion. There is no pleural effusion. MMode/2D Measurements & Calculations LVIDd: 4.2 cm LVOT diam: 2.1 cm LVIDs: 2.3 cm Ao root diam: 3.2 cm FS: 44.1 % asc Aorta Diam: 3.7 cm EPSS: 0.57 cm Ao Arch Diam (Prox Trans): 2.4 cm IVSd: 1.1 cm LVPWd: 1.1 cm LV palmer. diameter/BSA (cm/m^2): 2.0 LV sys. diameter/BSA (cm/m^2): 1.1 LA dimension: 3.7 cm RA long axis: 4.9 cm LA A2 area: 19.8 cm2 RA area: 14.4 cm2 LA A4 area: 20.8 cm2 RA vol: 35.8 ml LA length (vol): 5.8 cm RA : 16.8 ml/m2 LA vol: 60.8 ml IVC diam: 2.2 cm LA vol index: 28.6 ml/m2 RVD1 (basal): 3.6 cm RVD2 (mid): 3.9 cm TAPSE: 1.8 cm Doppler Measurements & Calculations Ao V2 max: 170.2 cm/sec LVOT Max Elver: 135.8 cm/sec Ao V2 mean: 139.9 cm/sec LV V1 max P.4 mmHg Ao max P.6 mmHg LV V1 VTI: 22.5 cm Ao mean P.0 mmHg BENEDICTO(I,D): 2.3 cm2 Ao V2 VTI: 34.1 cm BENEDICTO(V,D): 2.7 cm2 sev ratio: 0.66 BENEDICTO indexed to BSA (cm^2/m^2): 1.1 MV E max elver: 87.6 cm/sec TR max elver: 335.1 cm/sec MV A max elver: 100.4 cm/sec TR max P.9 mmHg MV E/A: 0.87 PA V2 max: 82.6 cm/sec Med Peak E' Elver: 5.8 cm/sec PA V2 mean: 57.5 cm/sec E/E' med: 15.1 PA mean P.5 mmHg Lat Peak E' Elver: 9.2 cm/sec PA pr(Accel): 43.0 mmHg E/E' lat: 9.5 E/e' average: 12.3 MV dec time: 0.19 sec SV(OT): 76.8 ml Reading Physician:04:27 PM
[2021-09-14] MEDS: OXYBUTYNIN 5 MG ER TAB PO (17:21)
[2021-09-14] MEDS: ASPIRIN EC 81 MG TABLET PO (17:21)
[2021-09-14] MEDS: KETOROLAC 30 MG/ML VIAL 15 MG IV (20:41)
[2021-09-15] VITALS (13 sets, daily range): BP systolic 101–144; BP diastolic 51–68; PULSE 84–101; RESP 17–20; TEMP 35.9–37.5; O2SAT 93–97
--- NOTE | 2021-09-15 00:07 | PC.NURSE ---
Patient is alert and oriented. Breath sounds CTA with sat of 93% on oxygen at 1L/min per NC; continues, however, to desat into 80's with activity of being on bedpan. HRR but BP still running low at 101/57 and now is NPO for possible surgery in a.m. so IVF continuing to infuse. BT hypoactive but is passing flatus. Has not had a BM since 09/11 but states she does not feel constipated as has not had much food intake over past several days; refused hs Colace and MOM. Is voiding per bedpan and denies dysuria, frequency or urgency. Is able to move herself in bed. Gait not assessed as has only been out of bed with PT and was unable to ambulate; is NWB on left leg. Complained of 4/10 back pain and was medicated with scheduled Tylenol + Toradol with good relief. Chronic bilateral foot neuropathy unchanged; is able to wiggle toes and has good cap refill. Wearing bilateral calf SCD's. Fall risk score is moderate. Contact isolation due to staph aureus showing on wound culture as well as blood cultures. Made NPO at 0000 due to possible repeat I&D later today.
[2021-09-15] MEDS: LACTATED RINGERS 1,000 ML 175 ML IV (05:48)
[2021-09-15] MEDS: VANCOMYCIN 1,250 MG/250 ML PIGGYBACK 250 MG IV (06:25)
[2021-09-15] MEDS: KETOROLAC 30 MG/ML VIAL 15 MG IV ×3 (06:30→20:30)
[2021-09-15 06:54] LABS: Add Manual Diff / Slide Review NO; Basophils Absolute Auto 0 /uL (0-100); Basophils Percent Auto 0.3 % (0-2); Eosinophils Absolute Auto 200 /uL (0-450); Eosinophils Percent Auto 2.2 % (2-4); Hematocrit 30.2 % (36-46); Hemoglobin 10.2 g/dL (12.0-16.0); Lymphocytes Absolute Auto 600 /uL (1100-4500); Lymphocytes Percent Auto 5.2 % (25-40); Mean Corpuscular HGB Conc 33.8 % (30-36); Mean Corpuscular Volume 88.7 fL (80-100); Monocytes Absolute Auto 400 /uL (0-900); Monocytes Percent Auto 3.9 % (3-14); Neutrophils Absolute Auto 9300 /uL (1500-7000); Neutrophils Percent Auto 88.4 % (50-75); Platelet Count 146 X10^3/uL (150-400); Red Blood Cell Count 3.41 X10^6/uL (4.0-5.2); Red Cell Distribution Width 13.9 % (11.6-14.8); White Blood Cell Count 10.6 X10^3/uL (4.5-11.0)
[2021-09-15 07:02] LABS: Alanine Aminotransferase 84 IU/L (<35); Alkaline Phosphatase 97 U/L (38-126); Aspartate Aminotransferase 86 IU/L (14-36); BUN Creatinine Ratio 25.2 (6-22); Bilirubin Total 1.2 mg/dL (0.2-1.3); Blood Urea Nitrogen 35 mg/dL (7-17); Calcium 8.2 mg/dL (8.4-10.2); Carbon Dioxide 28 mmol/L (22-32); Chloride 97 mmol/L (98-107); Estimated Glomerular Filt Rate 38.3 mL/min (>60); Globulin 2.9 g/dL (1.7-4.1); Glucose 155 mg/dL (80-110); HEMOLYSIS < 15 (0-50); Magnesium 1.3 mg/dL (1.6-2.3); Sodium 131 mmol/L (137-145); Total Protein 5.9 g/dL (6.3-8.2)
[2021-09-15 07:08] LABS: Hemoglobin A1C% w Est Avg Glu 7.4 % (4.0-6.0)
[2021-09-15] MEDS: PRAVASTATIN 20 MG TABLET PO (08:31)
[2021-09-15] MEDS: DOCUSATE 100 MG CAPSULE PO ×2 (08:31→20:30)
[2021-09-15] MEDS: GABAPENTIN 300 MG CAPSULE PO ×3 (08:31→20:29)
[2021-09-15] MEDS: ACETAMINOPHEN 325 MG TABLET 975 MG PO ×3 (08:32→20:29)
[2021-09-15] MEDS: MAGNESIUM SULFATE 2 GM/50 ML PIGGYBACK IV (08:32)
--- NOTE | 2021-09-15 10:45 | PM.PNPO.1 ---
Subjective Subjective Date Patient Seen: 09/15/21 Time Patient Seen: 08:00 Interval history: Sitting up in bed comfortably. Pt seen with Dr Yang to determine whether she would need repeat I&D today. Exam Vital Signs (past 8 hours): - 09/15/21 04:10 09/15/21 04:42 09/15/21 08:30 Temperature 97.1 F L 96.7 F L Pulse Rate 89 95 H Respiratory Rate 18 18 Blood Pressure 144/54 H 117/61 Pulse Oximetry 93 97 96 09/15/21 08:50 Temperature Pulse Rate Respiratory Rate Blood Pressure Pulse Oximetry 97 Oxygen Delivery Method Room Air Oxygen Flow Rate 0 Narrative Exam Narrative: Pt underwent fusion of the IP joint of the left great toe by Dr Mckinley at the [facility] on 08/23/2021. A 4.0 cannulated screw was used for the fusion. She was last seen in the office on 09/07/2021, at which time she was doing well, had her sutures removed, and was made WBAT. She presented to the ED on 09/13/2021 c/o fever, chills, and swelling of the toe. Dr Yang was consulted and took her to surgery for I&D, advising her at that time that she may need additional surgery today. Dressing was removed, packing was removed without any discomfort. Dr Yang was unable to express any purulent drainage. Superficial tissue is sloughing, but there does appear to be granulation tissue deeper. Wound cultures from 09/13 are still pending; blood culture is positive for GPC. Objective Labs Result Diagrams: 09/15/21 06:44 09/15/21 06:44 Labs: Laboratory Results - last 24 hr 09/15/21 09/15/21 09/15/21 06:44 06:44 06:44 WBC 10.6 RBC 3.41 L Hgb 10.2 L Hct 30.2 L MCV 88.7 MCH 30.0 MCHC 33.8 RDW 13.9 Plt Count 146 L Neut % (Auto) 88.4 H Lymph % (Auto) 5.2 L Sandoval % (Auto) 3.9 Eos % (Auto) 2.2 Baso % (Auto) 0.3 Neut # (Auto) 9300 H Lymph # (Auto) 600 L Sandoval # (Auto) 400 Eos # (Auto) 200 Baso # (Auto) 0 Sodium 131 L Potassium 4.0 Chloride 97 L Carbon Dioxide 28 BUN 35 H Creatinine 1.39 H Estimated GFR 38.3 L BUN/Creatinine Ratio 25.2 H Glucose 155 H D Hemoglobin A1c 7.4 H Calcium 8.2 L Magnesium 1.3 L Total Bilirubin 1.2 AST 86 H ALT 84 H Alkaline Phosphatase 97 Total Protein 5.9 L Albumin 3.0 L Globulin 2.9 Albumin/Globulin Ratio 1.0 PFSH Medical History Diabetes Hyperlipidemia Hypertension Surgical History H/O foot surgery History of cholecystectomy Family History Mother Diabetes mellitus Father Diabetes mellitus Other Hypertension Social History household members: spouse Smoking Status: Never smoker alcohol intake: current Assessment & Plan Post-op Assessment and plan (1) H/O foot surgery: Assessment and Plan narrative: At this time, plan is to follow up for wound cultures and discharge patient with IV antibiotics based on sensitivities. She is currently receiving IV vancomycin and ceftriaxone. She should follow up with wound care for treatment until her next appointment with Dr Mckinley on 09/28/2021. Pain management and antibiotics per hospitalist. Postoperative Procedures: Procedures Operation Date: 09/13/21 18:00 Actual Procedure Side Surgeon p Incision and Drainage Wound/Extremity Left Dano Yang MD
[2021-09-15] MEDS: cefTRIAXone 1,000 MG in SODIUM CHLORIDE 0.9% 100 ML 200 ML IV (11:36)
[2021-09-15] MEDS: INSULIN LISPRO 100 UNIT/ML 3ML VIAL SUBCUT ×3 (12:11→20:42)
--- NOTE | 2021-09-15 13:02 | PM.PN.1 ---
Subjective Subjective Date Patient Seen: 09/15/21 Time Patient Seen: 09:30 Interval history: 61 year old female admitted with L 1st toe infection after recent screw insertion. Low back pain is improved today, MRI negative for spinal infection yesterday. Repeat blood cultures were positive yesterday, pending repeat again today. Remains on ceftriaxone and vanco pending sensitivities. Wound culture with MSSA. Exam Vital Signs (past 8 hours): - 09/15/21 08:30 09/15/21 08:50 09/15/21 12:08 Temperature 96.7 F L 97.1 F L Pulse Rate 95 H 96 H Respiratory Rate 18 18 Blood Pressure 117/61 109/56 L Pulse Oximetry 96 97 95 Oxygen Delivery Method Room Air Oxygen Flow Rate 0 Narrative Exam Narrative: General:? Patient is well developed and well nourished, in no distress at this time. warm to touch HEENT:? Normocephalic, atraumatic, extraocular muscles intact, oral pharynx is clear and mucous membranes are moist. Neck: supple and symmetric, trachea is midline, no cervical adenopathy. Negative for JVD Chest:? Normal AP diameter and contour without kyphoscoliosis, no tachypnea, equal chest rise bilaterally. Lungs:? CTA b/l no wheezing rhonchi or rales. Cardio:?RRR no m/r/g. Abdomen: S NT ND. MSK: left foot dressing c/d/i. bilateral and equal weakness, strength +5/5 Ext: no edema Objective Labs Result Diagrams: 09/15/21 06:44 09/15/21 06:44 Labs: Laboratory Results - last 24 hr 09/14/21 09/15/21 09/15/21 10:15 06:44 06:44 WBC 10.6 RBC 3.41 L Hgb 10.2 L Hct 30.2 L MCV 88.7 MCH 30.0 MCHC 33.8 RDW 13.9 Plt Count 146 L Neut % (Auto) 88.4 H Lymph % (Auto) 5.2 L Sutter % (Auto) 3.9 Eos % (Auto) 2.2 Baso % (Auto) 0.3 Neut # (Auto) 9300 H Lymph # (Auto) 600 L Sutter # (Auto) 400 Eos # (Auto) 200 Baso # (Auto) 0 Sodium 131 L Potassium 4.0 Chloride 97 L Carbon Dioxide 28 BUN 35 H Creatinine 1.39 H Estimated GFR 38.3 L BUN/Creatinine Ratio 25.2 H Glucose 155 H D Hemoglobin A1c Calcium 8.2 L Magnesium 1.3 L Total Bilirubin 1.2 AST 86 H ALT 84 H Alkaline Phosphatase 97 Total Protein 5.9 L Albumin 3.0 L Globulin 2.9 Albumin/Globulin Ratio 1.0 A. baumannii (PCR) Not detected Teresa albicans (PCR) Not detected C. glabrata (PCR) Not detected C. krusei (PCR) Not detected C. parapsilosis (PCR) Not detected C. tropicalis (PCR) Not detected Enterobacteriac sp PCR Not detected E. cloacae complex PCR Not detected Enterococcus sp PCR Not detected E. coli (PCR) Not detected H. influenzae (PCR) Not detected Klebsiella oxytoca PCR Not detected Klebsiella pneumoniae Not detected List. monocytogenes PCR Not detected N. meningitidis (PCR) Not detected Proteus species (PCR) Not detected Serratia marcescens PCR Not detected Staphylococcus sp PCR Detected H Staph aureus (PCR) Detected H mecA-Methicil Res Gene Not detected Streptococcus sp PCR Not detected Group A Strep (PCR) Not detected Strep agalactiae (PCR) Not detected Strep pneumoniae (PCR) Not detected P. aeruginosa (PCR) Not detected 09/15/21 06:44 WBC RBC Hgb Hct MCV MCH MCHC RDW Plt Count Neut % (Auto) Lymph % (Auto) Sutter % (Auto) Eos % (Auto) Baso % (Auto) Neut # (Auto) Lymph # (Auto) Sutter # (Auto) Eos # (Auto) Baso # (Auto) Sodium Potassium Chloride Carbon Dioxide BUN Creatinine Estimated GFR BUN/Creatinine Ratio Glucose Hemoglobin A1c 7.4 H Calcium Magnesium Total Bilirubin AST ALT Alkaline Phosphatase Total Protein Albumin Globulin Albumin/Globulin Ratio A. baumannii (PCR) Teresa albicans (PCR) C. glabrata (PCR) C. krusei (PCR) C. parapsilosis (PCR) C. tropicalis (PCR) Enterobacteriac sp PCR E. cloacae complex PCR Enterococcus sp PCR E. coli (PCR) H. influenzae (PCR) Klebsiella oxytoca PCR Klebsiella pneumoniae List. monocytogenes PCR N. meningitidis (PCR) Proteus species (PCR) Serratia marcescens PCR Staphylococcus sp PCR Staph aureus (PCR) mecA-Methicil Res Gene Streptococcus sp PCR Group A Strep (PCR) Strep agalactiae (PCR) Strep pneumoniae (PCR) P. aeruginosa (PCR) PFSH Medical History Diabetes Hyperlipidemia Hypertension Surgical History H/O foot surgery History of cholecystectomy Family History Mother Diabetes mellitus Father Diabetes mellitus Other Hypertension Social History household members: spouse Smoking Status: Never smoker alcohol intake: current Assessment & Plan Assessment & Plan narrative: 1. left 1st toe postoperative infection, staph aureus bacteremia, osteomyelitis, acute, present on admission ?- s/p I&D with orthopedic surgery on 09/13. No need for further washout per orthopedics. Recommend outpatient evaluation on 09/[address] Mckinley. ?- continue broad spectrum antibiotics pending speciation and sensitivites. Wound cultures with MSSA. ?- repeat blood cultures today again to check clearance, TTE pending. Culture from 09/14 still positive. ?- patient with persistent back pain yesterday, improved today. MRI negative for spinal infection. ?- will need likely 6 weeks of IV antibiotics for osteomyelitis which should treat any possible bacteremia and / or endocarditis. - will consult with ID once blood cultures finalize. May need transfer for KATHY if no clearance. 2. DM2 ?- A1c with decent control at 7.4%. ?- continue sliding scale for now. ?- hold home metformin in setting of MARGY. 3. sepsis ruled out. ?- given MARGY, fever to 103 and tachycardia, concern for sepsis but SOFA is currently 1 with MARGY. Will continue treatment as noted above. 4. HTN ?- hold home medications in setting of possible sepsis and MARGY 5. MARGY ?- likely due to infective process and recent nausea / vomiting. ?- continue to follow, improved today to 1.39. 6 obesity ?- contributes towards patient's diabetes and increases possibility of surgical site infection post - operatively. contributed towards patient's presentation 7. Hypomagnesemia - repleted today. Code: Full, surrogate decision maker is patient's spouse DVT: Lovenox Dispo: admitted as inpatient. probable discharge home on IV antibiotics, possible transfer for KATHY / ID consultation. I have utilized all available immediate resources to obtain, update, or review the patient's current medications. Time Spent With Patient Critical Care time: I spent a total of [] minutes of critical care time on this patient's care today; this time is exclusive of procedural time.
--- NOTE | 2021-09-15 15:14 | PT.IPTN ---
Current Diagnoses Cellulitis, unspecified (09/13/21) Infection following a procedure, deep incisional surgical site, initial encounter (09/13/21) Surgery Performed Operation Date: 09/13/21 18:00 Actual Procedures p Incision and Drainage Wound/Extremity(Left) - Dano Yang MD Physical Therapy Treatment Note M2 PT-IP Current Condition Start: 09/14/21 12:27 Freq: NEEDED Status: Active Protocol: Document 09/14/21 09:25 AB (Rec: 09/14/21 12:44 AB [id number]) Physical Therapy Current Condition Current Condition Evaluation Date 09/14/21 Treatment Diagnosis h/o L great toe fusion s/p I&D ; difficulty in walking Onset Date 09/13/21 M3 PT-IP Subjective Start: 09/14/21 12:27 Freq: NEEDED Status: Active Protocol: Document 09/15/21 14:48 KS (Rec: 09/15/21 15:35 KS [id number]) Subjective Physical Therapy Visit Type Type Treatment Note Visit Start Time 14:48 Visit Stop Time 15:14 Total Visit Minutes 26 Notes Spouse present during treatment Number of TOP TRIMMER Visits 1 Physical Therapy Visit Comments Patient Comments pt is agreeable to do PT M4 PT-IP Mobility and Gait Start: 09/14/21 12:27 Freq: NEEDED Status: Active Protocol: Document 09/15/21 14:48 KS (Rec: 09/15/21 15:35 KS [id number]) PT-Bed Mobility Assessment Supine to Sit Supine to Sit Contact Guard Assistance,1 Person Assistance,Head of Bed Elevated Sit to Supine Sit to Supine Contact Guard Assistance,1 Person Assistance Scooting Scooting to Edge of Bed Contact Guard Assistance PT-Transfer Assessment Sit to and From Stand Sit to and from Stand Minimal Assistance,1 Person Assistance,Use of Upper Extremities Equipment Transfer Assistive Device Gait Belt,Front Wheeled Walker Orthotic/Prosthetic Devices or Brace: No Transfers Transfer Destination Bed Transfer Technique Pivot R foot w/ FWW Transfer Ability Level of Assist Minimal Assistance,1 Person Assistance,Use of Upper Extremities Comments Mobility Comments Pt in bed upon arrival and aware of NWB status. Denies getting out of bed today. Able to sup<>sit CGA w/ HOB elevated and scoot EOB w/ increased time and difficulty. Once EOB, educated ot how to perform sit<>stand w/ FWW while maintaining NWB LLE. Pt able to complete w/ Min A and cues. Pt attempted to take small hops using BUE to elevate and advance RLE while maintaining NWB LLE but limited due to weakness and poor coordination. Pt resulted to pivoting foot to scoot laterally towards HOB, she then performed 10 pushups from FWW onto tip toes of RLE. Pt expressed fatigue and got back into bed CGA. She then completed 1x10 bilateral ankle pumps, quad sets, glute sets, and SLR. Pt left in bed w/ all needs in reach. Brought in recliner chair, but pt not wanting to transfer to chair at this time. Gait Assessment Comments Gait Comments Pt only able to perform 3 small hops and pivot RLE w/ FWW while maintaining NWB LLE. PT-Balance Assessment Sitting Balance and Reactions Static Sitting Balance Ability Good Dynamic Sitting Balance Ability Good Standing Balance and Reactions Static Standing Balance Ability Fair Dynamic Standing Balance Ability Poor Device Used FWW M5 PT-IP Objective Assessments Start: 09/14/21 12:27 Freq: NEEDED Status: Active Protocol: Document 09/14/21 09:25 AB (Rec: 09/14/21 12:44 AB [id number]) Orientation Orientation/Cognition Level of Alertness Alert Orientation Name Language Function Ability No Deficits Noted Safety Awareness Decreased Safety Awareness Memory Description Short Term Impaired Gross Range of Motion Lower Extremity ROM Assessment Within Functional Limits Strength Lower Extremity Strength Assessment Bilaterally Impaired Comments Strength Comments RLE: 3+/5 LLE: 3-/5 Muscle Tone Muscle Tone WNL Yes M6 PT-IP Treatment Start: 09/14/21 12:27 Freq: NEEDED Status: Active Protocol: Document 09/15/21 14:48 KS (Rec: 09/15/21 15:35 KS [id number]) Physical Therapy Treatment Exercises Exercises Ankle Pumps,Gluteal Sets,Quad Sets,Straight Leg Raises Education Education Provided Weight Bearing Status,Safety Other Treatments Other Treatment Performed Tricep dips w/ FWW M7 PT-IP Assessment and Plan Start: 09/14/21 12:27 Freq: NEEDED Status: Active Protocol: Document 09/15/21 14:48 KS (Rec: 09/15/21 15:35 KS [id number]) PT Summary Assessment and Plan Potential Rehabilitation Potential Fair Status of Condition at Evaluation Evolving Summary Impairments Pain,ROM,Strength,Balance, Coordination,Sensation,Tone, Cognition,Bed Mobility, Transfers,Gait,Activity Tolerance Assessment Summary Pt requiring less assist today , but still very much limited in mobility due to weakness and poor coordination. Min A for sit<>stand, able to pivot RLE while maintaining LLE but limited in hopping w/ FWW. Continue to recommend SNF due to pts lack of strength and mobility. Goals Bed Mobility Goal Standby Assistance Transfer Goal Contact Guard Assistance,Front Wheeled Walker Gait Goal Contact Guard Assistance,Front Wheel Walker Gait Distance 25 Days to Meet Goals 10 Frequency of Treatment Frequency Of Treatment Once a Day Treatment Plan Physical Therapy Treatment Plan Bed Mobility Training,Transfer Training,Gait Training, Therapeutic Exercise,Balance Retraining,Post Op Education, Discharge Planning,Hot or Cold Pack,Neuromuscular Re-ed, Coordination Retraining,Manual Therapy Weight Bearing Status Weight Bearing Status Non-Weight Bearing Allowed Weight Bearing Amount (enter % LLE NWB or #) (%) Recommendations To Nursing Amount of Assist Needed 2 Person Assist Discharge Recommendations PT Discharge Recommendations SNF Rehab Transportation Needs at Discharge Wheelchair/Cabulance
[2021-09-15] MEDS: OXYBUTYNIN 5 MG ER TAB PO (16:54)
[2021-09-15] MEDS: ASPIRIN EC 81 MG TABLET PO (16:55)
--- NOTE | 2021-09-15 18:09 | PC.NURSE ---
Isolation d/c'd per Dr. Jason after blood culture results show Staph Aureus.
[2021-09-15] MEDS: SODIUM CHLORIDE 0.9% FLUSH 10 ML IV (20:45)
[2021-09-16] VITALS (7 sets, daily range): BP systolic 115–157; BP diastolic 51–84; PULSE 91–99; RESP 16–18; TEMP 36.5–37.1; O2SAT 93–98
[2021-09-16] MEDS: HYDROCODONE/ACET 5/325 TABLET 2 TAB PO (01:35)
[2021-09-16 06:54] LABS: Add Manual Diff / Slide Review NO; Basophils Absolute Auto 100 /uL (0-100); Basophils Percent Auto 0.5 % (0-2); Eosinophils Absolute Auto 200 /uL (0-450); Eosinophils Percent Auto 2.2 % (2-4); Hematocrit 31.6 % (36-46); Hemoglobin 10.5 g/dL (12.0-16.0); Lymphocytes Absolute Auto 900 /uL (1100-4500); Mean Corpuscular HGB Conc 33.3 % (30-36); Mean Corpuscular Hemoglobin 29.5 PG (26-34); Mean Corpuscular Volume 88.6 fL (80-100); Monocytes Absolute Auto 600 /uL (0-900); Monocytes Percent Auto 5.5 % (3-14); Neutrophils Absolute Auto 9400 /uL (1500-7000); Neutrophils Percent Auto 83.8 % (50-75); Platelet Count 183 X10^3/uL (150-400); Red Blood Cell Count 3.57 X10^6/uL (4.0-5.2); Red Cell Distribution Width 14.4 % (11.6-14.8); White Blood Cell Count 11.2 X10^3/uL (4.5-11.0)
[2021-09-16 07:01] LABS: Alanine Aminotransferase 79 IU/L (<35); Albumin 3.3 g/dL (3.5-5.0); Alkaline Phosphatase 113 U/L (38-126); Aspartate Aminotransferase 72 IU/L (14-36); BUN Creatinine Ratio 31.5 (6-22); Bilirubin Total 1.6 mg/dL (0.2-1.3); Blood Urea Nitrogen 35 mg/dL (7-17); Calcium 8.4 mg/dL (8.4-10.2); Carbon Dioxide 26 mmol/L (22-32); Chloride 96 mmol/L (98-107); Estimated Glomerular Filt Rate 49.6 mL/min (>60); Globulin 3.3 g/dL (1.7-4.1); Glucose 163 mg/dL (80-110); HEMOLYSIS < 15 (0-50); Magnesium 1.9 mg/dL (1.6-2.3); Potassium 3.7 mmol/L (3.4-5.1); Sodium 129 mmol/L (137-145); Total Protein 6.6 g/dL (6.3-8.2)
[2021-09-16 07:07] LABS: Vancomycin Trough 9.6 ug/mL (10-20)
[2021-09-16] MEDS: VANCOMYCIN 1,250 MG/250 ML PIGGYBACK 250 MG IV (07:15)
[2021-09-16] MEDS: SODIUM CHLORIDE 0.9% FLUSH 10 ML IV ×3 (07:16→22:23)
[2021-09-16] MEDS: SODIUM CHLORIDE 0.9% 250 ML 21 ML IV (07:17)
[2021-09-16] MEDS: INSULIN LISPRO 100 UNIT/ML 3ML VIAL SUBCUT ×3 (08:07→17:32)
[2021-09-16] MEDS: GABAPENTIN 300 MG CAPSULE PO ×3 (08:08→20:47)
[2021-09-16] MEDS: ENOXAPARIN 40 MG/0.4 ML SYRINGE SUBCUT (08:08)
[2021-09-16] MEDS: DOCUSATE 100 MG CAPSULE PO ×2 (08:09→20:47)
[2021-09-16] MEDS: PRAVASTATIN 20 MG TABLET PO (09:00)
[2021-09-16] MEDS: SODIUM CHLORIDE 0.9% IV (09:28)
[2021-09-16] MEDS: PENICILLIN POTASSIUM IV (09:28)
--- NOTE | 2021-09-16 11:50 | PT.IPTN ---
Current Diagnoses Cellulitis, unspecified (09/13/21) Infection following a procedure, deep incisional surgical site, initial encounter (09/13/21) Surgery Performed Operation Date: 09/13/21 18:00 Actual Procedures p Incision and Drainage Wound/Extremity(Left) - Dano Yang MD Physical Therapy Treatment Note M2 PT-IP Current Condition Start: 09/14/21 12:27 Freq: NEEDED Status: Active Protocol: Document 09/14/21 09:25 AB (Rec: 09/14/21 12:44 AB [id number]) Physical Therapy Current Condition Current Condition Evaluation Date 09/14/21 Treatment Diagnosis h/o L great toe fusion s/p I&D ; difficulty in walking Onset Date 09/13/21 M3 PT-IP Subjective Start: 09/14/21 12:27 Freq: NEEDED Status: Active Protocol: Document 09/16/21 11:32 KS (Rec: 09/16/21 12:38 KS [id number]) Subjective Physical Therapy Visit Type Type Treatment Note Visit Start Time 11:32 Visit Stop Time 11:50 Total Visit Minutes 18 Notes Spouse present during treatment Number of VICE PRESIDENT NETWORK Visits 2 Physical Therapy Visit Comments Patient Comments pt is agreeable to do PT M4 PT-IP Mobility and Gait Start: 09/14/21 12:27 Freq: NEEDED Status: Active Protocol: Document 09/16/21 11:32 KS (Rec: 09/16/21 12:38 KS [id number]) PT-Bed Mobility Assessment Supine to Sit Supine to Sit Contact Guard Assistance,1 Person Assistance,Head of Bed Elevated,Bedrails Scooting Scooting to Edge of Bed Contact Guard Assistance PT-Transfer Assessment Sit to and From Stand Sit to and from Stand Moderate Assistance,1 Person Assistance,Use of Upper Extremities Equipment Transfer Assistive Device Gait Belt,Front Wheeled Walker Orthotic/Prosthetic Devices or Brace: No Transfers Transfer Destination Chair Transfer Technique Pivot R foot w/ FWW Transfer Ability Level of Assist Minimal Assistance,1 Person Assistance,Use of Upper Extremities Comments Mobility Comments Pt in bed upon arrival and agreeable to transfer to chair . CGA for sup<>sit and scooting EOB w/ HOB elevated and bedrails but w/ increased difficulty and time. Once EOB pt c/o back spasms making it more difficult for her to move . Mod A for sit<>stand w/ FWW while maintain NWB on LLE. Pt able to pivot R foot to transfer to chair, but unable to elevate or take small hops due to weakness - Min A. Pt w/ poor eccentric control when sitting and FWW tipped back as pt sat impulsively while gripping FWW rather than reaching for arm rests. Pt attempted to perform 10x chair pushups to improve tricep strength in effort to improve mobility w/ FWW however unable to clear bottom from chair using only arms and needing to recruit RLE to lift bottom slightly off of chair. Reviewed LE exercises and pt reported fatigue. Pt left in chair w/ RN in room. Gait Assessment Comments Gait Comments Pt only able to pivot R foot to complete transfer from bed to chair w/ FWW Min A. PT-Balance Assessment Sitting Balance and Reactions Static Sitting Balance Ability Good Dynamic Sitting Balance Ability Good Standing Balance and Reactions Static Standing Balance Ability Fair Dynamic Standing Balance Ability Poor Device Used FWW M5 PT-IP Objective Assessments Start: 09/14/21 12:27 Freq: NEEDED Status: Active Protocol: Document 09/14/21 09:25 AB (Rec: 09/14/21 12:44 AB [id number]) Orientation Orientation/Cognition Level of Alertness Alert Orientation Name Language Function Ability No Deficits Noted Safety Awareness Decreased Safety Awareness Memory Description Short Term Impaired Gross Range of Motion Lower Extremity ROM Assessment Within Functional Limits Strength Lower Extremity Strength Assessment Bilaterally Impaired Comments Strength Comments RLE: 3+/5 LLE: 3-/5 Muscle Tone Muscle Tone WNL Yes M6 PT-IP Treatment Start: 09/14/21 12:27 Freq: NEEDED Status: Active Protocol: Document 09/16/21 11:32 KS (Rec: 09/16/21 12:38 KS [id number]) Physical Therapy Treatment Exercises Exercises Ankle Pumps,Gluteal Sets,Quad Sets,Straight Leg Raises Education Education Provided Weight Bearing Status,Safety Other Treatments Other Treatment Performed Chair pushups M7 PT-IP Assessment and Plan Start: 09/14/21 12:27 Freq: NEEDED Status: Active Protocol: Document 09/16/21 11:32 KS (Rec: 09/16/21 12:38 KS [id number]) PT Summary Assessment and Plan Potential Rehabilitation Potential Fair Status of Condition at Evaluation Evolving Summary Impairments Pain,ROM,Strength,Balance, Coordination,Sensation,Tone, Cognition,Bed Mobility, Transfers,Gait,Activity Tolerance Assessment Summary Pt continues to be limited by weakness and low activity tolerance as well as NWB status. She requires increased time w/ tasks and appears to have difficulty getting out of bed. Mod A for sit<>Stand today, pt unable to elevate and advance RLE to transfer and can only pivot foot to transfer from bed to chair w/ FWW while keeping LLE NWB. Pt will require SNF to improve strength and functional mobility independence as she is a high fall risk due to poor balance and weakness. Goals Bed Mobility Goal Standby Assistance Transfer Goal Contact Guard Assistance,Front Wheeled Walker Gait Goal Contact Guard Assistance,Front Wheel Walker Gait Distance 25 Days to Meet Goals 10 Frequency of Treatment Frequency Of Treatment Once a Day Treatment Plan Physical Therapy Treatment Plan Bed Mobility Training,Transfer Training,Gait Training, Therapeutic Exercise,Balance Retraining,Post Op Education, Discharge Planning,Hot or Cold Pack,Neuromuscular Re-ed, Coordination Retraining,Manual Therapy Weight Bearing Status Weight Bearing Status Non-Weight Bearing Allowed Weight Bearing Amount (enter % LLE NWB or #) (%) Recommendations To Nursing Amount of Assist Needed 2 Person Assist Discharge Recommendations PT Discharge Recommendations SNF Rehab Transportation Needs at Discharge Wheelchair/Cabulance
--- NOTE | 2021-09-16 13:18 | PC.NURSE ---
Addendum entered by Kandy Stewart R.N. 09/16/21 15:12: pt with PICC line now. Oxy given for back pain and pt sleeping now. Carlos A from [facility] called and wants to get in contact with pt or . His Office [phone] Original Note: IV access: LAC IV leaking and dc'd. unsuccessful attempts at IV starts. Dr. Jason notified and midline ordered. Next IVabx due 1330. Pt up transfered from chair to BSC in shower. assisted with shower. Vanco dc'd and PCN IV ordered
[2021-09-16] MEDS: OXYCODONE IR 10 MG TABLET PO ×2 (14:33→20:53)
[2021-09-16] MEDS: ACETAMINOPHEN 325 MG TABLET 975 MG PO (14:33)
[2021-09-16] MEDS: CEFAZOLIN 2 GM/20 ML SYRINGE IV ×2 (15:38→22:23)
--- NOTE | 2021-09-16 15:54 | PM.PNPO.1 ---
Subjective Subjective Date Patient Seen: 09/16/21 Time Patient Seen: 07:00 Interval history: Pt underwent fusion of the IP joint of the left great toe by Dr Mckinley at the [facility] on 08/23/2021.? A 4.0 cannulated screw was used for the fusion.? She was last seen in the office on 09/07/2021, at which time she was doing well, had her sutures removed, and was made WBAT.? She presented to the ED on 09/13/2021 c/o fever, chills, and swelling of the toe.? Dr Yang was consulted and took her to surgery for I&D. Wound was checked with Dr Yang yesterday, and he was unable to express any purulent drainage and it was determined that she did not need another washout. She is lying comfortably in bed. Dressing was changed and toe is much pinker in appearance today than yesterday. Exam Vital Signs (past 8 hours): - 09/16/21 08:08 Temperature 98.7 F Pulse Rate 98 H Respiratory Rate 16 Blood Pressure 157/79 H Pulse Oximetry 98 Oxygen Delivery Method Room Air Oxygen Flow Rate 0 Narrative Exam Narrative: Longstanding history of neuropathy, no pain with palpation or manipulation of toe. Objective Labs Result Diagrams: 09/16/21 06:36 09/16/21 06:36 Labs: Laboratory Results - last 24 hr 09/16/21 09/16/21 09/16/21 06:36 06:36 06:36 WBC 11.2 H RBC 3.57 L Hgb 10.5 L Hct 31.6 L MCV 88.6 MCH 29.5 MCHC 33.3 RDW 14.4 Plt Count 183 Neut % (Auto) 83.8 H Lymph % (Auto) 8.0 L [place] % (Auto) 5.5 Eos % (Auto) 2.2 Baso % (Auto) 0.5 Neut # (Auto) 9400 H Lymph # (Auto) 900 L [place] # (Auto) 600 Eos # (Auto) 200 Baso # (Auto) 100 Sodium 129 L Potassium 3.7 Chloride 96 L Carbon Dioxide 26 BUN 35 H Creatinine 1.11 H Estimated GFR 49.6 L BUN/Creatinine Ratio 31.5 H Glucose 163 H Calcium 8.4 Magnesium 1.9 Total Bilirubin 1.6 H AST 72 H ALT 79 H Alkaline Phosphatase 113 Total Protein 6.6 Albumin 3.3 L Globulin 3.3 Albumin/Globulin Ratio 1.0 Vancomycin Trough 9.6 L PFSH Medical History Diabetes Hyperlipidemia Hypertension Surgical History H/O foot surgery History of cholecystectomy Family History Mother Diabetes mellitus Father Diabetes mellitus Other Hypertension Social History household members: spouse Smoking Status: Never smoker alcohol intake: current Assessment & Plan Post-op Assessment and plan (1) 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 I have called Dr Montes's office; this patient is well-known to him and his staff. There are no providers available to assess the toe today, but I was told that he and his staff will be alerted of her hospitalization on Sunday, 09/19, and someone will try to see her at that time. (2) H/O foot surgery: Assessment and Plan narrative: POD# # s/p I&D of left great toe. At this time, plan is to continue IV antibiotics per hospitalist service and have patient follow up with Dr Mckinley in office on 09/28/2021. (3) Cellulitis: Postoperative Procedures: Procedures Operation Date: 09/13/21 18:00 Actual Procedure Side Surgeon p Incision and Drainage Wound/Extremity Left Dano Yang MD
--- NOTE | 2021-09-16 17:15 | PM.PN.1 ---
Subjective Subjective Date Patient Seen: 09/16/21 Time Patient Seen: 15:00 Interval history: 61 year old female admitted with L 1st toe infection after recent screw insertion. Low back pain is improved today, MRI negative for spinal infection. Blood cultures are clear from 09/15 at 24 hours. Discussed with ID at [facility], recommended cefazolin 2g q8 hours for at least 6 weeks with weekly CBC, CMP, ESR, CRP for monitoring and recommended outpatient ID clinic follow up. May need to add rifampin if screw is to stay in, but not currently. Exam Vital Signs (past 8 hours): Oxygen Delivery Method Room Air Oxygen Flow Rate 0 Narrative Exam Narrative: General:? Patient is well developed and well nourished, in no distress at this time. warm to touch HEENT:? Normocephalic, atraumatic, extraocular muscles intact, oral pharynx is clear and mucous membranes are moist. Neck: supple and symmetric, trachea is midline, no cervical adenopathy. Negative for JVD Chest:? Normal AP diameter and contour without kyphoscoliosis, no tachypnea, equal chest rise bilaterally. Lungs:? CTA b/l no wheezing rhonchi or rales. Cardio:?RRR no m/r/g. Abdomen: S NT ND. MSK: left foot dressing c/d/i. bilateral and equal weakness, strength +5/5 Ext: no edema Objective Labs Result Diagrams: 09/16/21 06:36 09/16/21 06:36 Labs: Laboratory Results - last 24 hr 09/16/21 09/16/21 09/16/21 06:36 06:36 06:36 WBC 11.2 H RBC 3.57 L Hgb 10.5 L Hct 31.6 L MCV 88.6 MCH 29.5 MCHC 33.3 RDW 14.4 Plt Count 183 Neut % (Auto) 83.8 H Lymph % (Auto) 8.0 L [place] % (Auto) 5.5 Eos % (Auto) 2.2 Baso % (Auto) 0.5 Neut # (Auto) 9400 H Lymph # (Auto) 900 L [place] # (Auto) 600 Eos # (Auto) 200 Baso # (Auto) 100 Sodium 129 L Potassium 3.7 Chloride 96 L Carbon Dioxide 26 BUN 35 H Creatinine 1.11 H Estimated GFR 49.6 L BUN/Creatinine Ratio 31.5 H Glucose 163 H Calcium 8.4 Magnesium 1.9 Total Bilirubin 1.6 H AST 72 H ALT 79 H Alkaline Phosphatase 113 Total Protein 6.6 Albumin 3.3 L Globulin 3.3 Albumin/Globulin Ratio 1.0 Vancomycin Trough 9.6 L PFSH Medical History Diabetes Hyperlipidemia Hypertension Surgical History H/O foot surgery History of cholecystectomy Family History Mother Diabetes mellitus Father Diabetes mellitus Other Hypertension Social History household members: spouse Smoking Status: Never smoker alcohol intake: current Assessment & Plan Assessment & Plan narrative: 1. left 1st toe postoperative infection, staph aureus bacteremia, osteomyelitis, acute, present on admission ?- s/p I&D with orthopedic surgery on 09/13. No need for further washout per orthopedics. Recommended outpatient evaluation on 09/[address] Mckinley. ?- Discussed with ID today. Recommended outpatient follow up with ID clinic (Fax: [phone], Office: [phone]). Continue cefazolin 2g q8 hours for at least 6 weeks from 1st negative culture, possibly to add rifampin if screw is to stay in place. ?- repeat blood cultures from 09/15 are at no growth. ID recommended at least waiting 48 hours prior to insertion of PICC line. ?- patient with persistent back pain HD#1, improved today. MRI negative for spinal infection. ?- will need likely 6 weeks of IV antibiotics for osteomyelitis which should treat any possible bacteremia and / or endocarditis. 2. DM2 ?- A1c with decent control at 7.4%. ?- continue sliding scale for now. ?- hold home metformin in setting of MARGY. 3. sepsis ruled out. ?- given MARGY, fever to 103 and tachycardia, concern for sepsis but SOFA was 1 with MARGY. Will continue treatment as noted above. 4. HTN ?- hold home medications in setting of possible sepsis and MARGY, will resume home losartan at half dosing with 50 mg tomorrow. Continue to hold HCTZ. 5. MARGY ?- likely due to infective process and recent nausea / vomiting. ?- continue to follow, improved today to 1.11. 6 obesity ?- contributes towards patient's diabetes and increases possibility of surgical site infection post - operatively. contributed towards patient's presentation 7. Hypomagnesemia ?- repleted today. 8. Elevated tranasminase levels, - possible drug reaction given elevated bilirubin today as well. Antibiotics narrowed today. Only mild at this time, continue to trend. Code: Full, surrogate decision maker is patient's spouse DVT: Lovenox Dispo: admitted as inpatient. probable discharge home on IV antibiotics. I have utilized all available immediate resources to obtain, update, or review the patient's current medications. Time Spent With Patient Critical Care time: I spent a total of [] minutes of critical care time on this patient's care today; this time is exclusive of procedural time.
[2021-09-16] MEDS: ASPIRIN EC 81 MG TABLET PO (17:30)
[2021-09-16] MEDS: OXYBUTYNIN 5 MG ER TAB PO (17:30)
[2021-09-16] MEDS: CLOTRIMAZOLE TROCHE 10 MG PO ×2 (18:11→22:21)
[2021-09-17] VITALS (8 sets, daily range): BP systolic 97–149; BP diastolic 48–67; PULSE 82–99; RESP 14–21; TEMP 36.3–37.2; O2SAT 96–100
[2021-09-17] MEDS: ACETAMINOPHEN 325 MG TABLET 975 MG PO ×2 (05:07→22:44)
[2021-09-17] MEDS: OXYCODONE IR 10 MG TABLET PO ×2 (05:07→22:43)
[2021-09-17] MEDS: CLOTRIMAZOLE TROCHE 10 MG PO ×5 (05:40→22:45)
[2021-09-17] MEDS: SODIUM CHLORIDE 0.9% FLUSH 10 ML IV ×5 (06:10→21:20)
[2021-09-17] MEDS: CEFAZOLIN 2 GM/20 ML SYRINGE IV ×3 (06:10→22:45)
[2021-09-17 06:29] LABS: Add Manual Diff / Slide Review NO; Basophils Absolute Auto 0 /uL (0-100); Basophils Percent Auto 0.2 % (0-2); Eosinophils Absolute Auto 200 /uL (0-450); Eosinophils Percent Auto 1.4 % (2-4); Hematocrit 30.7 % (36-46); Hemoglobin 10.4 g/dL (12.0-16.0); Lymphocytes Absolute Auto 1400 /uL (1100-4500); Lymphocytes Percent Auto 12.9 % (25-40); Mean Corpuscular Hemoglobin 29.9 PG (26-34); Mean Corpuscular Volume 87.8 fL (80-100); Monocytes Absolute Auto 1000 /uL (0-900); Monocytes Percent Auto 9.1 % (3-14); Neutrophils Absolute Auto 8400 /uL (1500-7000); Neutrophils Percent Auto 76.4 % (50-75); Platelet Count 230 X10^3/uL (150-400); Red Blood Cell Count 3.49 X10^6/uL (4.0-5.2)
[2021-09-17 06:43] LABS: Alanine Aminotransferase 62 IU/L (<35); Albumin 3.2 g/dL (3.5-5.0); Alkaline Phosphatase 113 U/L (38-126); Aspartate Aminotransferase 49 IU/L (14-36); BUN Creatinine Ratio 27.8 (6-22); Bilirubin Total 0.8 mg/dL (0.2-1.3); Blood Urea Nitrogen 25 mg/dL (7-17); Calcium 8.3 mg/dL (8.4-10.2); Carbon Dioxide 24 mmol/L (22-32); Chloride 96 mmol/L (98-107); Estimated Glomerular Filt Rate > 60.0 mL/min (>60); Globulin 3.1 g/dL (1.7-4.1); Glucose 178 mg/dL (80-110); HEMOLYSIS < 15 (0-50); Magnesium 1.9 mg/dL (1.6-2.3); Potassium 3.6 mmol/L (3.4-5.1); Sodium 128 mmol/L (137-145); Total Protein 6.3 g/dL (6.3-8.2)
[2021-09-17 06:52] LABS: Erythrocyte Sedimentation Rate 67 MM/HR (0-20)
[2021-09-17 06:55] LABS: C-Reactive Protein Quant 17.3 mg/dL (<1.0)
[2021-09-17] MEDS: INSULIN LISPRO 100 UNIT/ML 3ML VIAL SUBCUT ×3 (08:19→17:05)
[2021-09-17] MEDS: ENOXAPARIN 40 MG/0.4 ML SYRINGE SUBCUT (08:25)
[2021-09-17] MEDS: DOCUSATE 100 MG CAPSULE PO ×2 (08:26→21:19)
[2021-09-17] MEDS: LOSARTAN 50 MG TABLET PO (08:26)
[2021-09-17] MEDS: GABAPENTIN 300 MG CAPSULE PO ×3 (08:26→21:19)
[2021-09-17] MEDS: PRAVASTATIN 20 MG TABLET PO (08:30)
--- NOTE | 2021-09-17 09:26 | P.PN_ITS ---
Subjective Subjective Date Patient Seen: 09/17/21 Time Patient Seen: 09:26 Interval history: Pt underwent fusion of the IP joint of the left great toe by Dr Mckinley at the [facility] on 08/23/2021.? A 4.0 cannulated screw was used for the fusion.? She was last seen in the office on 09/07/2021, at which time she was doing well, had her sutures removed, and was made WBAT.? She presented to the ED on 09/13/2021 c/o fever, chills, and swelling of the toe.? Dr Yang was consulted and took her to surgery for I&D.? This morning she is resting comfortably in bed. Exam Vital Signs (past 8 hours): - 09/17/21 07:00 09/17/21 09:16 Temperature 97.4 F L Pulse Rate 82 85 Respiratory Rate 20 14 Blood Pressure 132/64 Pulse Oximetry 97 97 Oxygen Delivery Method Room Air Oxygen Flow Rate 0 Narrative Exam Narrative: Sensation to touch remains blunted in left foot. She is able to wiggle all toes and DF and PF. Objective Labs Result Diagrams: 09/17/21 06:20 09/17/21 06:20 Labs: Laboratory Results - last 24 hr 09/17/21 09/17/21 06:20 06:20 WBC 11.0 RBC 3.49 L Hgb 10.4 L Hct 30.7 L MCV 87.8 MCH 29.9 MCHC 34.0 RDW 14.0 Plt Count 230 Neut % (Auto) 76.4 H Lymph % (Auto) 12.9 L [place] % (Auto) 9.1 Eos % (Auto) 1.4 L Baso % (Auto) 0.2 Neut # (Auto) 8400 H Lymph # (Auto) 1400 [place] # (Auto) 1000 H Eos # (Auto) 200 Baso # (Auto) 0 ESR 67 H Sodium 128 L Potassium 3.6 Chloride 96 L Carbon Dioxide 24 BUN 25 H Creatinine 0.90 Estimated GFR > 60.0 BUN/Creatinine Ratio 27.8 H Glucose 178 H Calcium 8.3 L Magnesium 1.9 Total Bilirubin 0.8 AST 49 H ALT 62 H Alkaline Phosphatase 113 C-Reactive Protein 17.3 H Total Protein 6.3 Albumin 3.2 L Globulin 3.1 Albumin/Globulin Ratio 1.0 [facility] Medical History Diabetes Hyperlipidemia Hypertension Surgical History H/O foot surgery History of cholecystectomy Family History Mother Diabetes mellitus Father Diabetes mellitus Other Hypertension Social History household members: spouse Smoking Status: Never smoker alcohol intake: current Assessment & Plan Post-op Assessment and plan (1) Osteomyelitis due to Staphylococcus aureus: Assessment and Plan narrative: I have discussed this case with one of Dr Mckinley's colleague's as well as Dr Tom Montes's office - she is well-known to him and his staff. Plan at this time is to leave screw in place and have someone from Dr Montes's office evaluate pt in the hospital on Sunday to give their opinion on viability of the toe. At this time, recommending discharge with IV antibiotics (with addition of rifampin per Dr Jason's note), outpatient wound care, and follow up with Dr Mckinley as scheduled on 09/28/2021. I think the patient can be WBAT on her left heel for ease of mobilization. (2) H/O foot surgery: Postoperative Procedures: Procedures Operation Date: 09/13/21 18:00 Actual Procedure Side Surgeon p Incision and Drainage Wound/Extremity Left Dano Yang MD
[2021-09-17] MEDS: LIDOCAINE PATCH 1 EACH ADH..PATCH TOP (10:37)
--- NOTE | 2021-09-17 11:06 | PT.IPTN ---
Addendum entered and electronically signed by Tonie Escobar, SERGE 09/17/21 15:14: WB status updated to WBAT through Left HEEL ONLY per RADHA and Dr. Joel terry AM. Pt aware. Original Note: Current Diagnoses Methicillin susceptible Staphylococcus aureus infection, unspecified site (09/13/21) Cellulitis, unspecified (09/13/21) Osteomyelitis, unspecified (09/13/21) Infection following a procedure, deep incisional surgical site, initial encounter (09/13/21) Other specified postprocedural states (09/13/21) Surgery Performed Operation Date: 09/13/21 18:00 Actual Procedures p Incision and Drainage Wound/Extremity(Left) - Dano Yang MD Physical Therapy Treatment Note M2 PT-IP Current Condition Start: 09/14/21 12:27 Freq: NEEDED Status: Active Protocol: Document 09/14/21 09:25 AB (Rec: 09/14/21 12:44 AB [id number]) Physical Therapy Current Condition Current Condition Evaluation Date 09/14/21 Treatment Diagnosis h/o L great toe fusion s/p I&D ; difficulty in walking Onset Date 09/13/21 M3 PT-IP Subjective Start: 09/14/21 12:27 Freq: NEEDED Status: Active Protocol: Document 09/17/21 10:35 KS (Rec: 09/17/21 12:50 KS [id number]) Subjective Physical Therapy Visit Type Type Treatment Note Visit Start Time 10:35 Visit Stop Time 11:06 Total Visit Minutes [address] Urena and note from PA, pt okay to WBAT through heel only for easier mobility. Spouse present during treatment Number of COORDINATOR [employer] Visits 3 Physical Therapy Visit Comments Patient Comments pt is agreeable to do PT M4 PT-IP Mobility and Gait Start: 09/14/21 12:27 Freq: NEEDED Status: Active Protocol: Document 09/17/21 10:35 KS (Rec: 09/17/21 12:50 KS [id number]) PT-Bed Mobility Assessment Supine to Sit Supine to Sit Contact Guard Assistance,1 Person Assistance,Head of Bed Elevated,Bedrails Scooting Scooting to Edge of Bed Contact Guard Assistance PT-Transfer Assessment Sit to and From Stand Sit to and from Stand Minimal Assistance,1 Person Assistance,Use of Upper Extremities Equipment Transfer Assistive Device Gait Belt,Front Wheeled Walker Orthotic/Prosthetic Devices or Brace: No Transfers Transfer Destination Chair Transfer Technique Pt ambulated w/ FWW Transfer Ability Level of Assist Minimal Assistance,1 Person Assistance,Use of Upper Extremities Comments Mobility Comments Pt in bed upon arrival and requires increased time for sup<>sit and scooting EOB due to weakness but only CGA w/ HOB elevated. Min A for sit<> stand, she ambulated to toilet WBAT through L heel only w/ FWW CGA and after using bathroom ambulated additional 30 ft around room before requesting to get into chair. Pt left in chair with all needs in reach. Gait Assessment Gait Gait Assistance Required: Contact Guard Assist,1 Person Assist Distance (Feet) 40 Able to Maintain Weight Bearing Status No During Gait Assistive Devices Assistive Device Gait Belt,Front Wheeled Walker Gait Deviations General Gait Pattern Antalgic,Decreased Stride Length,Decreased Feet Clearance,Flexed Trunk,Lateral Trunk Lean Factors Limiting Gait Function Factors Limiting Gait Function Decreased Activity Tolerance, Decreased Sensation,Decreased Strength,Incoordination,Pain, Poor Balance Comments Gait Comments Pt able to ambulate a total of about 40 ft w/ FWW CGA WBAT through L heel but needing occasional cues to maintain. Stair Climbing Assessment Comments Stair Climbing Comments no steps to enter PT-Balance Assessment Sitting Balance and Reactions Static Sitting Balance Ability Good Dynamic Sitting Balance Ability Good Standing Balance and Reactions Static Standing Balance Ability Fair Dynamic Standing Balance Ability Poor Device Used FWW M5 PT-IP Objective Assessments Start: 09/14/21 12:27 Freq: NEEDED Status: Active Protocol: Document 09/14/21 09:25 AB (Rec: 09/14/21 12:44 AB [id number]) Orientation Orientation/Cognition Level of Alertness Alert Orientation Name Language Function Ability No Deficits Noted Safety Awareness Decreased Safety Awareness Memory Description Short Term Impaired Gross Range of Motion Lower Extremity ROM Assessment Within Functional Limits Strength Lower Extremity Strength Assessment Bilaterally Impaired Comments Strength Comments RLE: 3+/5 LLE: 3-/5 Muscle Tone Muscle Tone WNL Yes M6 PT-IP Treatment Start: 09/14/21 12:27 Freq: NEEDED Status: Active Protocol: Document 09/17/21 10:35 KS (Rec: 09/17/21 12:50 KS [id number]) Physical Therapy Treatment Education Education Provided Weight Bearing Status,Safety M7 PT-IP Assessment and Plan Start: 09/14/21 12:27 Freq: NEEDED Status: Active Protocol: Document 09/17/21 10:35 KS (Rec: 09/17/21 12:50 KS [id number]) PT Summary Assessment and Plan Potential Rehabilitation Potential Fair Status of Condition at Evaluation Evolving Summary Impairments Pain,ROM,Strength,Balance, Coordination,Sensation,Tone, Cognition,Bed Mobility, Transfers,Gait,Activity Tolerance Assessment Summary Pt more mobile w/ WBAT through heel of L foot however still limited in mobility due to weakness and low activity tolerance. Able to ambulate ~ 40 ft w/ FWW but needed occasional cues to maintain NWB of toes, especially when sitting down. If pt goes home, she will need HHPT and caregiver training. Goals Bed Mobility Goal Standby Assistance Transfer Goal Contact Guard Assistance,Front Wheeled Walker Gait Goal Contact Guard Assistance,Front Wheel Walker Gait Distance 25 Days to Meet Goals 10 Frequency of Treatment Frequency Of Treatment Once a Day Treatment Plan Physical Therapy Treatment Plan Bed Mobility Training,Transfer Training,Gait Training, Therapeutic Exercise,Balance Retraining,Post Op Education, Discharge Planning,Hot or Cold Pack,Neuromuscular Re-ed, Coordination Retraining,Manual Therapy Weight Bearing Status Weight Bearing Status Non-Weight Bearing Allowed Weight Bearing Amount (enter % LLE NWB or #) (%) Recommendations To Nursing Amount of Assist Needed 2 Person Assist Discharge Recommendations PT Discharge Recommendations Home with 15/01 Assist Available,Home Health,SNF Rehab Transportation Needs at Discharge Wheelchair/Cabulance
--- NOTE | 2021-09-17 12:14 | CM.DPNOTE ---
Addendum entered by Vianney Kamara, LYNDSAY 09/17/21 16:13: ADD: Dr Maldonado requesting HH services. Placed call to [facility], they are out until next Sunday for RN/PT. Placed call to [facility], they have availability Sunday or Sun. Need referral faxed w/completed and signed F2F, HH order to [facility] Midline attempted this afternoon by contracted co, and rep was unable to place it. Additional attempt at midline vs PICC placement will need to be scheduled Sunday Updated Mignon at [facility]. Patient has had her teaching and supplies dropped off by [facility] this afternoon. Cefazolin needs to be refrigerated. CM team will follow closely for further coordination of DCP JW Original Note: DCP Update Patient is medically stable to DC today; PICC will be placed today by a contracted company Patient has now been cleared by Ortho team to bear weight through her left heel which has helped substantially for her mobility per therapy team= patient cleared to return home w/assist from spouse. Spoke w/Mignon, branch operations manager pharmacist at [facility]; she is helping to coordinate efforts to get patient home this evening, states patient is covered 100% for her Cefazolin 2 g Q8 (6 weeks) and [facility] can provide teaching at this morning, approx 1100 Met w/patient and spouse to review above. Both agreeable and patient eager to return home. Discussed home health services, advised that this POURED PIPE MAKER uncertain whether a HH agency could confirm [employer] [place] over the weekend and patient states she doesn't need HH Patient/spouse state they have all DME either at house or closely available as needed Plan: DC expected later this afternoon or evening, w/[facility] to follow for 6 ks IV abx, ID f/u through [facility], and close outpatient f/u w/Ortho team. Will plan to fax DC Summary and PICC insertion report to [facility] when it becomes available JW
--- NOTE | 2021-09-17 14:37 | P.PN_ITS ---
Subjective Subjective Date Patient Seen: 09/17/21 Time Patient Seen: 08:00 Interval history: Today she states she continues to have back spasms. Exam Vital Signs (past 8 hours): - 09/17/21 07:00 09/17/21 09:16 09/17/21 11:00 Temperature 97.4 F L 97.5 F L Pulse Rate 82 85 89 Respiratory Rate 20 14 21 Blood Pressure 132/64 97/66 Pulse Oximetry 97 97 96 09/17/21 12:20 Temperature Pulse Rate Respiratory Rate Blood Pressure Pulse Oximetry 97 Oxygen Delivery Method Room Air Oxygen Flow Rate 0 Narrative Exam Narrative: General:?no acute distress Lungs:? clear bilaterally Cardio: regular rate and rhythm, no murmurs Abdomen: soft, nontender, nondistended MSK: left foot dressing c/d/i Objective Labs Result Diagrams: 09/17/21 06:20 09/17/21 06:20 Labs: Laboratory Results - last 24 hr 09/17/21 09/17/21 06:20 06:20 WBC 11.0 RBC 3.49 L Hgb 10.4 L Hct 30.7 L MCV 87.8 MCH 29.9 MCHC 34.0 RDW 14.0 Plt Count 230 Neut % (Auto) 76.4 H Lymph % (Auto) 12.9 L [place] % (Auto) 9.1 Eos % (Auto) 1.4 L Baso % (Auto) 0.2 Neut # (Auto) 8400 H Lymph # (Auto) 1400 [place] # (Auto) 1000 H Eos # (Auto) 200 Baso # (Auto) 0 ESR 67 H Sodium 128 L Potassium 3.6 Chloride 96 L Carbon Dioxide 24 BUN 25 H Creatinine 0.90 Estimated GFR > 60.0 BUN/Creatinine Ratio 27.8 H Glucose 178 H Calcium 8.3 L Magnesium 1.9 Total Bilirubin 0.8 AST 49 H ALT 62 H Alkaline Phosphatase 113 C-Reactive Protein 17.3 H Total Protein 6.3 Albumin 3.2 L Globulin 3.1 Albumin/Globulin Ratio 1.0 PFSH Medical History Diabetes Hyperlipidemia Hypertension Surgical History H/O foot surgery History of cholecystectomy Family History Mother Diabetes mellitus Father Diabetes mellitus Other Hypertension Social History household members: spouse Smoking Status: Never smoker alcohol intake: current Assessment & Plan Assessment & Plan narrative: 1. left 1st toe postoperative infection, staph aureus bacteremia, osteomyelitis, acute, present on admission ?- s/p I&D with orthopedic surgery on 09/13. No need for further washout per orthopedics. Recommended outpatient evaluation on 09/[address] Mckinley. ?- ID recommend ID clinic (Fax: [phone], Office: [phone]). Continue cefazolin 2g q8 hours for at least 6 weeks from 1st negative culture, possibly to add rifampin if screw is to stay in place. ?- repeat blood cultures from 09/15 are at no growth. ID recommended at least waiting 48 hours prior to insertion of PICC line. ?- patient with persistent back pain HD#1, improved today. MRI with questionable findings, can follow as outpatient ?- will need likely 6 weeks of IV antibiotics for osteomyelitis - PICC ordered today 2. DM2 ?- A1c with decent control at 7.4%. ?- continue sliding scale for now. ?- hold home metformin in setting of MARGY. 3. sepsis ruled out. ?- given MARGY, fever to 103 and tachycardia, concern for sepsis but SOFA was 1 with MARGY. Will continue treatment as noted above. 4. HTN ?- hold home medications in setting of possible sepsis and MARGY, will resume home losartan at half dosing with 50 mg tomorrow. Continue to hold HCTZ. 5. MARGY ?- likely due to infective process and recent nausea / vomiting. ?- continue to follow, improved today to 1.11. 6 obesity ?- contributes towards patient's diabetes and increases possibility of surgical site infection post - operatively. contributed towards patient's presentation 7. Hypomagnesemia ?- repleted today. 8. Elevated tranasminase levels, ?- possible drug reaction given elevated bilirubin today as well. Antibiotics narrowed today. Only mild at this time, continue to trend. Time Spent With Patient Critical Care time: I spent a total of [] minutes of critical care time on this patient's care today; this time is exclusive of procedural time.
[2021-09-17] MEDS: FUROSEMIDE 40 MG/4 ML VIAL IV (17:09)
[2021-09-17] MEDS: CYCLOBENZAPRINE 10 MG TABLET PO (17:09)
[2021-09-17] MEDS: ASPIRIN EC 81 MG TABLET PO (17:09)
[2021-09-17] MEDS: OXYBUTYNIN 5 MG ER TAB PO (17:12)
--- NOTE | 2021-09-17 17:50 | PC.NURSE ---
Vascular product development specialist arrived to place PICC line. PICC placement attempted twice without success to RUE Basilic Vein. aware. [facility] will send another specialist out tonight or tomorrow morning for PICC Placement. Phone call placed to [facility] to notify pt is not leaving tonight and will not need home infusions tonight. PIV placed by Arthur HUDSON. Unable to draw from line. MD aware blood cultures will not be drawn tonight. Blood draw will be obtained when Phlebotomy comes in.
[2021-09-17] MEDS: MAGNESIUM HYDROXIDE 30 ML UDC PO (22:46)
--- NOTE | 2021-09-17 23:37 | DI.RAD.S_ITS ---
PROCEDURE: XR CHEST FOR PICC 1V INDICATIONS: PICC placement COMPARISON: [facility], [place], XR CHEST 1V, 09/13/2021, 10:08. [facility], [place], XR CHEST 1V, 10/21/2020, 23:01. FINDINGS: PICC was placed by the intravenous therapy team from the left side. Fluoroscopic spot film demonstrates the tip of PICC projecting to the area of atrial caval junction. IMPRESSION: Tip of PICC projects to the area of atrial caval junction at the distal SVC Dictated by: Edmundo Miller M.D. on 09/18/2021 at 0:02 Approved by: Edmundo Miller M.D. on 09/18/2021 at 0:02
--- NOTE | 2021-09-18 00:06 | PC.NURSE ---
ISABELL PICC RN in & inserted PICC line KECIA
[2021-09-18] MEDS: CEFAZOLIN 2 GM/20 ML SYRINGE IV (05:59)
[2021-09-18] MEDS: CLOTRIMAZOLE TROCHE 10 MG PO ×2 (05:59→08:52)
[2021-09-18 06:41] LABS: Hematocrit 28.8 % (36-46); Hemoglobin 9.8 g/dL (12.0-16.0); Mean Corpuscular HGB Conc 33.9 % (30-36); Mean Corpuscular Hemoglobin 29.7 PG (26-34); Mean Corpuscular Volume 87.7 fL (80-100); Platelet Count 290 X10^3/uL (150-400); Red Blood Cell Count 3.29 X10^6/uL (4.0-5.2); Red Cell Distribution Width 14.2 % (11.6-14.8)
[2021-09-18 06:51] LABS: BUN Creatinine Ratio 36.8 (6-22); Blood Urea Nitrogen 28 mg/dL (7-17); Calcium 8.4 mg/dL (8.4-10.2); Carbon Dioxide 31 mmol/L (22-32); Chloride 96 mmol/L (98-107); Estimated Glomerular Filt Rate > 60.0 mL/min (>60); Glucose 151 mg/dL (80-110); HEMOLYSIS 17 (0-50); Potassium 3.3 mmol/L (3.4-5.1); Sodium 129 mmol/L (137-145)
[2021-09-18 07:00] VITALS: BP 175/54; PULSE 91; RESP 19; TEMP 36.8; O2SAT 97
[2021-09-18] MEDS: INSULIN LISPRO 100 UNIT/ML 3ML VIAL SUBCUT (08:10)
[2021-09-18] MEDS: DOCUSATE 100 MG CAPSULE PO (08:11)
[2021-09-18] MEDS: CYCLOBENZAPRINE 10 MG TABLET PO (08:11)
[2021-09-18] MEDS: PRAVASTATIN 20 MG TABLET PO (08:11)
[2021-09-18] MEDS: ENOXAPARIN 40 MG/0.4 ML SYRINGE SUBCUT (08:11)
[2021-09-18] MEDS: GABAPENTIN 300 MG CAPSULE PO (08:11)
[2021-09-18] MEDS: LOSARTAN 50 MG TABLET PO (08:11)
[2021-09-18] MEDS: LIDOCAINE PATCH 1 EACH ADH..PATCH TOP (08:12)
[2021-09-18] MEDS: FUROSEMIDE 40 MG/4 ML VIAL IV (08:12)
[2021-09-18] MEDS: SODIUM CHLORIDE 0.9% FLUSH 10 ML IV (08:13)
[2021-09-18] MEDS: POTASSIUM CHLORIDE 20 MEQ TAB 40 MEQ PO (08:51)
--- NOTE | 2021-09-18 09:45 | PM.DS.1 ---
History of Present Illness History of Present Illness Chief complaint: Left big toe swollen- had screw put in 08/23 Narrative: Per Dr. Jason: 60-year-old woman history of atn-gekehgc-hrsgvedvy diabetes with peripheral neuropathy hypertension, obesity, hyperlipidemia and recent screw placement in her left 1st toe with Orthopedic surgery on August 23.? Patient had the swapnil removed and was doing well but overnight yesterday developed abrupt onset of redness and swelling of her toe.? Over the weekend she was nauseous and vomiting and unable to tolerate much oral intake but did not notice any swelling at that time, though the noted that it was potentially getting bigger over the weekend as well.? She denies any trauma to her foot. In the emergency room, the patient was febrile to 103, tachycardic, and actually slightly hypertensive.? The remainder of her vital signs are unremarkable.? Initial laboratory evaluation showed a leukocytosis with WBC at 13.9.? Coagulation studies were unremarkable.? Blood cultures were not initially ordered but were ordered upon arrival to the floor and continued fever.? Chemistries revealed MARGY with creatinine 1.62 elevated lactate of 3.8, glucose of 256.? Urinalysis was not consistent with an infection.? COVID-19 testing was negative.? Orthopedics was consulted in the emergency room and patient was admitted to Medicine for antibiotics and further management of possible septic arthritis. Discharge Providers Provider Date of admission: 09/13/21 11:51 Discharge Date: 09/18/21 Primary care physician: Jennifer Lopez PA-C Consults: 09/13/21 16:53 Consult to Anesthesiology Routine Comment: Consulting Provider: Anesthesiologist Reason for consultation: Post operative pain managment 09/13/21 19:29 Consult to Discharge Planning Routine Comment: Consult to Physical Therapy Evaluate & Treat Comment: Physician Instructions: Evaluate and Treat Consult to Respiratory Therapy Evaluate & Treat Comment: Physician Instructions: Evaluate and treat 09/18/21 10:36 Consult to Home Health Routine Comment: Osteomyelitis, I&D, toe infection, IV-Abx home inf Reason For Exam: Set up RN/PT for discharge to home Discharge provider: Evan Urena MD Summary Hospital Course Discharge Diagnosis: 1. Left 1st toe postoperative infection 2. MSSA bacteremia 3. Osteomyelitis 4. Back pain 5. Type 2 DM 6. MARGY 7. HTN 8. Obesity Hospital Course: Ms. De Dios came in to the hospital with infected toe, and eventually found to have staph aureus bacteremia and osteomyelitis. She underwent washout with orthopedic surgery on 09/13. She was eventually switched to cefazolin with planned 6 week course of antibiotics and is referred to ID clinic. Of note she did have back spasms. She had an MRI performed which showed likely chronic changes but could not completely rule out discitis but she had no evidence of absces, and ECHO showed no vegetation. Her back pain did improve with opiates, muscle relaxers and gabapentin. She worked with PT and was able to discharge home. She should follow up with ID and repeat an MRI to further evaluate if these MRI findings are very early discitis or chronic changes. She has multiple disc abnormalities and stenosis in her back, and it is possible that she had an exacerbation of pain due to this. She was discharged with home health PT and IV infusion. She will follow up with orthopedic surgery on 09/28 and she is referred to wound care clinic. Exam Vital Signs (past 8 hours): Oxygen Delivery Method Room Air Oxygen Flow Rate 0 Narrative Exam Narrative: General:?no acute distress Lungs:? clear bilaterally Cardio: regular rate and rhythm, no murmurs Abdomen: soft, nontender, nondistended MSK: left foot dressing c/d/i Objective Labs Result Diagrams: 09/18/21 06:05 09/18/21 06:05 Labs: Laboratory Results - last 24 hr 09/18/21 09/18/21 06:05 06:05 WBC 11.0 RBC 3.29 L Hgb 9.8 L Hct 28.8 L MCV 87.7 MCH 29.7 MCHC 33.9 RDW 14.2 Plt Count 290 Sodium 129 L Potassium 3.3 L Chloride 96 L Carbon Dioxide 31 BUN 28 H Creatinine 0.76 Estimated GFR > 60.0 BUN/Creatinine Ratio 36.8 H Glucose 151 H Calcium 8.4 PFSH Medical History Diabetes Hyperlipidemia Hypertension Surgical History H/O foot surgery History of cholecystectomy Family History Mother Diabetes mellitus Father Diabetes mellitus Other Hypertension Social History household members: spouse Smoking Status: Never smoker alcohol intake: current Discharge Plan Discharge Plan Patient Disposition: Home Health Service Provider Discharge Comment: Ms. De Dios had an infection in her toe, that did get into the bone. She did get a surgery and was improving. She should follow up with Infectious Disease clinic, if you have not heard from them please call at [phone] to set up an appointment. She should talk to her providers about repeating the MRI of her spine in a few weeks. She should continue IV antibiotics for six weeks. She should follow up with orthopedic surgeon on September 28. Discharge orders & Medications Prescriptions: New lidocaine 5 % Adhesive Patch,Medicated 1 ea topical DAILY Qty: 10 0RF gabapentin [Neurontin] 300 mg Capsule 300 mg PO TID Qty: 20 0RF cefazolin 1 gram recon soln 2 g IV Q8H Qty: 25 0RF oxycodone 5 mg tablet 5 mg PO Q6H PRN (Reason: pain) Qty: 20 0RF cyclobenzaprine 5 mg tablet 5 mg PO TID PRN (Reason: muscle spasm) Qty: 20 0RF Continued losartan 50 mg tablet 100 mg PO DAILY 0RF pravastatin 20 mg tablet 20 mg PO DAILY 0RF hydrochlorothiazide 25 mg tablet 25 mg PO DAILY 0RF aspirin 81 mg tablet,delayed release (DR/EC) 81 mg PO QPM 0RF oxybutynin chloride 5 mg tablet extended release 24 hr 5 mg PO QPM 0RF metformin 500 mg tablet extended release 24 hr 2,000 mg PO QPM 0RF Follow up/Referrals: [facility] [Provider Group] (osteomyelitis, question of possible discitis on MRI, consider repeat MRI) Dori Mckinley MD [Physician] - (follow up September 28, 2021) Jennifer Lopez PA-C [Primary Care Provider] - Tom Montes MD [Physician] - (follow up leg wounds) Diet/Activity/Treatments Diet: Regular Skin/Wound/Dressing Care Skin care: You are referred to Wound Care. Please call to schedule your appointment. Report to your healthcare provider any signs of infection, such as:: chills, fever, night sweats, increased pain, unusual drainage and unusual redness Discharge Data Primary Care Provider: Jennifer Lopez
--- NOTE | 2021-09-18 10:00 | P.PN_ITS ---
Subjective Subjective Date Patient Seen: 09/18/21 Time Patient Seen: 10:00 Interval history: The patient reports no pain. She is anxious to go home. Exam Vital Signs (past 8 hours): - 09/18/21 07:00 Temperature 98.2 F Pulse Rate 91 H Respiratory Rate 19 Blood Pressure 175/54 H Pulse Oximetry 97 Oxygen Delivery Method Room Air Oxygen Flow Rate 0 Narrative Exam Narrative: Left great toe is dressed with clean dressing. No significant drainage. Light touch reduced but at her baseline per patient. Objective Labs Result Diagrams: 09/18/21 06:05 09/18/21 06:05 Labs: Laboratory Results - last 24 hr 09/18/21 09/18/21 06:05 06:05 WBC 11.0 RBC 3.29 L Hgb 9.8 L Hct 28.8 L MCV 87.7 MCH 29.7 MCHC 33.9 RDW 14.2 Plt Count 290 Sodium 129 L Potassium 3.3 L Chloride 96 L Carbon Dioxide 31 BUN 28 H Creatinine 0.76 Estimated GFR > 60.0 BUN/Creatinine Ratio 36.8 H Glucose 151 H Calcium 8.4 PFSH Medical History Diabetes Hyperlipidemia Hypertension Surgical History H/O foot surgery History of cholecystectomy Family History Mother Diabetes mellitus Father Diabetes mellitus Other Hypertension Social History household members: spouse Smoking Status: Never smoker alcohol intake: current Assessment & Plan Post-op Postoperative Procedures: Procedures Operation Date: 09/13/21 18:00 Actual Procedure Side Surgeon p Incision and Drainage Wound/Extremity Left Dano Yang MD Postoperative day: 5 Postoperative status: doing well Postoperative status narrative: She has had persistent swelling and lack of full resolution after incision and drainage and IV antibiotic treatment. Postoperative plan: discharge Postoperative plan narrative: She does not need a current repeat incision and drainage. We had arranged for her to see wound care in the hospital on Sunday however she is very anxious to go home. She will contact wound care clinic 1st thing Sunday morning to arrange a follow-up early in the week. She will continue IV antibiotics as per the Medicine Service. She will follow up with Dr Marcial Monge on September 27 for evaluation of the wound and decision regarding continued attempts at conservative management versus potential amputation of the hallux. Time Spent With Patient Time with patient: 15-24 minutes
[2021-09-18 10:07] VITALS: RESP 16; O2SAT 97
--- NOTE | 2021-09-18 10:43 | CM.DPC ---
Addendum entered by Nkechi Phan LYNDSAY 09/18/21 12:01: ADD: Per RN, spoke to spouse and confirmed he took the [facility] supplies and medication home last night and they are there and ready for pt's arrival home. NORI called [facility] Pharmacist and updated and she was very appreciative. BF Original Note: DCP Discharge Home with HH and Home Infusion Per Ortho MD, no further surgical intervention needed at this time and cleared for d/c to home. Pt to have f/u appointment with Dr. Mckinley on September 26 to determine possible need of amputation still pending progress with IV-Abx. Per Hospitalist, pt is medically stable to d/c home today with IV-Abx and HH and signed the F2F. Per RN, pt's midline was attempted yesterday and could not be placed and after several more attempts PICC was placed for ongoing IV-Abx and [facility] completed infusion teaching bedside yesterday with pt and spouse. NORI called [facility] on-call w/e pharmacist and updated and she states RN who did teaching yesterday left pt's supplies and a dose of IV-Abx for pt that needed to be kept in the fridge. NORI inquired with RN who will check to med fridge here and will also ask spouse if he took it home last night. SW to call [facility] Pharmacist back with update at [phone]. NORI faxed PICC insertion note and Ortho prog note to review as d/c summ not yet available. NORI called [facility] and left msg per Ortho request as they were supposed to consult bedside tomorrow if pt remained inpt but request is for pt to be seen by them tomorrow as outpt and pt confirms she plans to call them tomorrow morning. NORI called [facility] and made new referral and faxed referral along with F2F, MD orders, and Ortho note from today and still awaiting d/c summary. NORI met bedside with pt and explained role and she confirms she is wanting to d/c home today and spouse will be bedside later this morning and she plans to call [facility] in the morning and SW provided [facility] brochure and she confirms she feels comfortable with home infusion teaching as well. Plan: Patient to d/c home today via spouse POV and [facility] to follow for home [facility] infusion and [facility] referral made to follow pt after d/c for HH RN/PT. SW to update [facility] pharmacist to confirm pt has her supplies and IV-Abx left by [facility] during teaching yesterday. LYNDSAY Shah
[2021-09-18 11:00] VITALS: BP 170/64; PULSE 90; RESP 21; TEMP 36.6; O2SAT 100
--- NOTE | 2021-09-18 14:01 | PC.NURSE ---
Discharged home by provider. Pt showered, dressed, PIV removed. PICC drsg changed. This technical publications writer instructed pt and spouse on infusion technique and flushing instructions as pt stated he was told how to do the infusions but has not practiced. Spouse demonstrated aseptic technique of cleaning the cap, flushing, and administration of push abx. ABX were given to spouse yesterday, he has them at home in their fridge. Pt verbalized understanding of all discharge instructions. Pt escorted off unit via w/c with all personal belongings. Pt left in stable condition.
== END 2021-09-18 13:30 | disposition home health service (06) | DRG 857 ==
LOC: ED 11:49 → AC 11:51
PROVIDERS: Internal Medicine; Orthopaedic Surgery; Admitting Provider Internal Medicine; Emergency Provider Emergency Medicine; Family Provider Physician Assistant; PCP Physician Assistant; Referring Provider Emergency Medicine; Visit Provider Internal Medicine
PROC: 0QBR0ZZ Excision of Left Toe Phalanx, Open Approach (ICD-10-PCS; principal; 2021-09-13 18:00)
DX: T81.42XA Infection following a procedure, deep incisional surgical site, initial encounter (principal); M86.8X7 Other osteomyelitis, ankle and foot; R78.81 Bacteremia; N17.9 Acute kidney failure, unspecified; B37.0 Candidal stomatitis; I96 Gangrene, not elsewhere classified; E11.42 Type 2 diabetes mellitus with diabetic polyneuropathy; L03.032 Cellulitis of left toe; M54.50 Low back pain, unspecified; R74.01 Elevation of levels of liver transaminase levels; R00.0 Tachycardia, unspecified; E66.9 Obesity, unspecified; B95.61 Methicillin susceptible Staphylococcus aureus infection as the cause of diseases classified elsewhere; E83.42 Hypomagnesemia; I10 Essential (primary) hypertension; E78.5 Hyperlipidemia, unspecified; R06.2 Wheezing; Z79.84 Long term (current) use of oral hypoglycemic drugs; Z20.822 Contact with and (suspected) exposure to COVID-19; Z68.33 Body mass index [BMI] 33.0-33.9, adult
CPT/HCPCS: 36415; 36592; 71045; 72158; 73630; 80048; 80053; 80202; 81001; 82550; 82553; 82962; 83036; 83605; 83690; 83735; 84484; 85025; 85027; 85610; 85651; 85730; 86140; 87040; 87070; 87075; 87077; 87086; 87147; 87150; 87176; 87186; 87205; 87635; 93005; 93306; 94760; 96365; 96367; 96368; 96375; 97110; 97116; 97162; 97530; 99284; C9803; A9579; J0171; J0690; J0696; J1170; J1650; J1815; J1885; J1940; J2250; J2270; J2405; J2540; J2704; J3010; J3360; J3475

== ENCOUNTER 2021-09-18 21:27 | Observation (INO) | payer BC, OTHER, SELFPAY ==
[2021-09-13 12:51] VITALS: BMI 33.4
[2021-09-18 21:28] VITALS: BP 178/81; PULSE 98; RESP 20; TEMP 37.2; O2SAT 98; BMI 33.4
--- NOTE | 2021-09-18 21:40 | ED_ITS ---
HPI - Back Pain/Injury General Chief Complaint: Back Pain/Injury Stated Complaint: Back Pain Time Seen by Provider: 09/18/21 21:40 History of Present Illness HPI Narrative: 61-year-old female nonsmoker with history of hypertension and diabetes as well as recent hospitalization for surgical treatment of left great toe osteomyelitis presents by EMS for evaluation of worsening low midline back pain. Patient had been complaining of midline back pain during her visit in the hospital and had an MRI of her lumbar spine with and without contrast which noted the possibility of early diskitis versus chronic fluid collection. The patient was discharged earlier today and has a PICC line in place, she has been taking caps all through the IV as well as oxycodone, Flexeril, and gabapentin for pain. She denies any fever or shaking chills but states that her pain has become so bad that she is unable to stand on her own hence her decision to call EMS. She denies any lower extremity weakness, numbness in her groin or loss of control of bowel or bladder. She is not dizzy nor weak or lightheaded and denies any chest pain or shortness of breath. She had multiple sets of blood cultures which note a salvador- sensitive staph aureus. She denies any falls or injury. Her pain is worse when she moves and improves with rest. However, even at rest she complains of a 4/10 pain that escalates to a 10/10 when she moves Related Data Home Medications Medication Instructions Recorded Confirmed hydrochlorothiazide 25 mg tablet 25 mg PO DAILY 10/21/20 09/18/21 losartan 50 mg tablet 100 mg PO DAILY 10/21/20 09/18/21 pravastatin 20 mg tablet 20 mg PO DAILY 10/21/20 09/18/21 aspirin 81 mg tablet,delayed 81 mg PO QPM 09/13/21 09/18/21 release metformin 500 mg tablet,extended 2,000 mg PO QPM 09/13/21 09/18/21 release 24 hr oxybutynin chloride 5 mg 5 mg PO QPM 09/13/21 09/18/21 tablet,extended release 24 hr Previous Rx's Medication Instructions Recorded cefazolin 1 gram solution for 2 g IV Q8H #25 ea 09/17/21 injection cyclobenzaprine 5 mg tablet 5 mg PO TID PRN #20 tab 09/17/21 gabapentin 300 mg capsule 300 mg PO TID #20 cap 09/17/21 (Neurontin) lidocaine 5 % topical patch 1 ea TOPICAL DAILY #10 ea 09/17/21 oxycodone 5 mg tablet 5 mg PO Q6H PRN #20 tab 09/17/21 Allergies Allergy/AdvReac Type Severity Reaction Status Date / Time Sulfa (Sulfonamide Allergy Mild RASH Verified 09/18/21 21:42 Antibiotics) [SULFA (SULFONAMIDE ANTIBIOTICS)] Review of Systems Review of Systems Narrative: GENERAL: Denies chills, fatigue, malaise, fever, sweats. HEENT: Denies sinus pain, ear pain, sore throat, difficulty swallowing, dizziness. RESPIRATORY: Denies dyspnea, cough, wheezing, hemoptysis, sputum. CARDIOVASCULAR: Denies chest pain, palpitations, orthopnea, edema, GASTROINTESTINAL: Denies nausea, vomiting, abdominal pain, diarrhea, constipation, melena. : Denies dysuria, frequency, incontinence, hematuria, urinary retention. MUSCULOSKELETAL: See HPI SKIN: Denies rash, skin lesions, or other NEUROLOGIC: Denies weakness, headache, numbness, change in speech, confusion, seizures, incoordination. PSYCHIATRIC: No concerning psychosocial issues. 12 point review of systems is negative except for those stated above Patient History Medical History Diabetes Hyperlipidemia Hypertension Surgical History H/O foot surgery History of cholecystectomy Family History Mother Diabetes mellitus Father Diabetes mellitus Other Hypertension Social History household members: spouse Smoking Status: Never smoker alcohol intake: current Smoking Status: Never smoker alcohol intake frequency: holidays/special occasions only Substance Use Type: does not use Exam Narrative Exam Narrative: GENERAL: [61 year old patient appears stated age. Well-developed patient, in moderate distress, obviously uncomfortable HEAD: Atraumatic. Normocephalic. EYES: Pupils equal round and reactive. Extraocular motions intact. No scleral icterus. No injection or drainage. ENT: Nose without bleeding, purulent drainage. Throat without erythema, tonsillar hypertrophy or exudate. Airway patent. NECK: Trachea midline. Non tender CARDIOVASCULAR: Regular rate and rhythm without murmurs, gallops, or rubs. RESPIRATORY: Clear to auscultation. Breath sounds equal bilaterally. No wheezes, rales, or rhonchi. GASTROINTESTINAL: Abdomen soft, non-tender, nondistended. EXTREMITIES: No edema or joint tenderness. BACK: Nontender without deformity or crepitance. No flank tenderness. NEURO: AOx3. SKIN: No rash or erythema of visible areas Initial Vital Signs Initial Vital Signs: Vital Signs Temperature 99 F 09/18/21 21:28 Pulse Rate 98 H 09/18/21 21:28 Respiratory Rate 20 09/18/21 21:28 Blood Pressure 178/81 H 09/18/21 21:28 Pulse Oximetry 98 09/18/21 21:28 Course Orders Ordered: ED Orders 09/18/21 21:55 CBC Auto Diff [Complete Blood Count AUTO DIFF] Stat CMP [Comprehensive Metabolic Panel] Stat CRP [C-Reactive Protein Quant] Stat ESR [Erythrocyte Sedimentation Rate] Stat 09/18/21 21:56 COVID19 -Nasal swab/Pre-Proc Stat 09/18/21 23:08 MR lumbar spine wo/w con Urgent 09/18/21 23:10 Consult to Physical Therapy Evaluate & Treat 09/19/21 05:00 Basic Metabolic Panel Routine Complete Blood Count AUTO DIFF Routine Acetaminophen (Acetaminophen 325 Mg Tablet) 650 mg PO Q6HR PRN PRN Reason: pain Cefazolin Sodium/Dextrose (Cefazolin 2 Gm/20 Ml Syringe) 2 gm IV Q8H FERNANDA Enoxaparin Sodium (Enoxaparin 40 Mg/0.4 Ml Syringe) 40 mg SUBCUT DAILY FERNANDA Gabapentin (Gabapentin 300 Mg Capsule) 300 mg PO Q8HR FERNANDA Morphine Sulfate (Morphine 2 Mg/Ml Inj) 2 mg IV Q4H PRN PRN Reason: Breakthrough pain only (8-10) Oxycodone HCl (Oxycodone Ir 5 Mg Tablet) 5 mg PO Q4HR PRN PRN Reason: Pain, Moderate (4-6) Discontinued Medications Cefazolin Sodium/Dextrose (Cefazolin 2 Gm/20 Ml Syringe) 2 gm IV Q8H FERNANDA Last Admin: 09/18/21 23:20 Dose: Not Given Documented by: RLAZANI Hydromorphone HCl (Hydromorphone 1 Mg Inj) 1 mg IV NOW ONE Stop: 09/18/21 21:48 Last Admin: 09/18/21 21:51 Dose: 1 mg Documented by: DAVY Consultations Consultation #1: Discussed with on-call orthopedist, appropriate for admission here, to hospitalist, repeat imaging, pain control, ongoing use of antibiotics Consultation #2: Hospitalist happy to accept Vital Signs Vital signs: Vital Signs - 8 hr 09/18/21 21:28 Temperature 99 F Pulse Rate 98 H Respiratory Rate 20 Blood Pressure 178/81 H Pulse Oximetry 98 MDM - Back Pain/Injury Lab Data Result diagrams: 09/18/21 21:55 09/18/21 21:55 Labs: Lab Results 09/18/21 09/18/21 09/18/21 Range/Units 21:55 21:55 21:56 WBC 12.1 H (4.5-11.0) X10^3/uL RBC 3.41 L (4.0-5.2) X10^6/uL Hgb 10.1 L (12.0-16.0) g/dL Hct 30.0 L (36-46) % MCV 88.2 (80-100) fL MCH 29.5 (26-34) PG MCHC 33.5 (30-36) % RDW 13.9 (11.6-14.8) % Plt Count 343 (150-400) X10^3/uL Neut % (Auto) Not Reportable Lymph % (Auto) Not Reportable [place] % (Auto) Not Reportable Eos % (Auto) Not Reportable Baso % (Auto) Not Reportable Lymph # (Auto) Not Reportable [place] # (Auto) Not Reportable Baso # (Auto) Not Reportable Total Counted 100 Seg Neutrophils % 71.0 H (38-70) % Band Neutrophils % 6.0 (3-7) % Lymphocytes % (Manual) 14.0 L (25-45) % Monocytes % (Manual) 8.0 (2-11) % Metamyelocytes % 1.0 H (-0) % Neutrophils # (Manual) 9317 H (5239-7744) /uL RBC Morphology See below Polychromasia 1+ H Hypochromasia 1+ H ESR 66 H (0-20) MM/HR Sodium 127 L (137-145) mmol/L Potassium 3.7 (3.4-5.1) mmol/L Chloride 92 L (98-107) mmol/L Carbon Dioxide 31 (22-32) mmol/L BUN 22 H (7-17) mg/dL Creatinine 0.81 (0.52-1.04) mg/dL Estimated GFR > 60.0 (>60) mL/min BUN/Creatinine Ratio 27.2 H (6-22) Glucose 191 H (80-110) mg/dL Calcium 8.7 (8.4-10.2) mg/dL Total Bilirubin 0.7 (0.2-1.3) mg/dL AST 40 H (14-36) IU/L ALT 31 (<35) IU/L Alkaline Phosphatase 123 (38-126) U/L C-Reactive Protein 14.1 H (<1.0) mg/dL Total Protein 6.4 (6.3-8.2) g/dL Albumin 3.3 L (3.5-5.0) g/dL Globulin 3.1 (1.7-4.1) g/dL Albumin/Globulin Ratio 1.1 (1.0-2.8) SARS-CoV-2 (PCR) Negative (Negative) MDM Narrative Medical decision making narrative: 61-year-old female recently admitted for cellulitis and osteomyelitis of her left great toe with positive blood cultures and questionable diskitis on MRI returns for intractable pain. Despite oxycodone, Flexeril, gabapentin and ongoing IV antibiotics her pain is sufficient that she cannot stand. It is not weakness but pain that prevents her from standing. She has no clinical signs c onsistent with cauda equina. Patient requires admission for treatment of intractable pain, ongoing antibiotics, repeat imaging of her lumbar spine Discharge Plan Departure Patient Disposition: Admitted as Observation Clinical Impression: Intractable low back pain, Discitis Admit Date/Time: 09/18/21 23:14 Admit Provider: Evan Urena
[2021-09-18] MEDS: HYDROMORPHONE 1 MG INJ IV (21:51)
[2021-09-18 22:03] LABS: Hemoglobin 10.1 g/dL (12.0-16.0); Mean Corpuscular HGB Conc 33.5 % (30-36); Mean Corpuscular Hemoglobin 29.5 PG (26-34); Mean Corpuscular Volume 88.2 fL (80-100); Platelet Count 343 X10^3/uL (150-400); Red Blood Cell Count 3.41 X10^6/uL (4.0-5.2); Red Cell Distribution Width 13.9 % (11.6-14.8); White Blood Cell Count 12.1 X10^3/uL (4.5-11.0)
[2021-09-18 22:09] LABS: Add Manual Diff / Slide Review YES
--- NOTE | 2021-09-18 22:12 | P.HP_ITS ---
History of Present Illness History of Present Illness Date Patient Seen: 09/18/21 Time Patient Seen: 23:00 Chief complaint: Back Pain Narrative: Ms. De Dios is a 61W with PMH of DM, HTN, HL who presents back to the hospital for worsening back pain after just being discharged. She was admitted to the hospital with toe infection and underwent washout with orthopedic surgery. She was found to have MSSA bacteremia and started on cefazolin. She was found to have osteomyelitis in her toe and was planned to have 6 weeks antibiotics. She did develop back pain in the hospital and MRI of her lumbar spine was done which was read as likely chronic changes, but could not completely rule out early discitis, no abscess noted. She was also noted to have multiple disk disease and spinal stenosis. She had an ECHO that showed no vegetation. She was given pain medications and saw PT and her back pain was slowly improving and she was discharged home with plan to follow up with ID clinic and repeat back imaging as an outpatient to see if there were any changes to the MRI findings. Once home and after getting out of the car, she had worsening flare of her back pain that limited her mobility and was not controlled with the pain regimen she was sent home with so she was brought back to the hospital. She had no trauma. No fevers/chills. No icontinence, saddle anesthesia. No pain radiating to legs, no numbness, no weakness. In the ED workup was done, vitals noted for elevated blood pressure. Labs notable for WBC 12.1, hgb 10.1. Na 127, creatinine 0.81. She was given pain medications and admitted for further treatment. Patient History Medical History Diabetes Hyperlipidemia Hypertension Surgical History H/O foot surgery History of cholecystectomy Family & Social History Family History Mother Diabetes mellitus Father Diabetes mellitus Other Hypertension Social History: household members spouse Prior Living Arrangements House Safety & Behavioral: Feels Safe in Current Yes Environment Been Physically Hurt or No Threatened By a Person Suicidal Ideation Description None Suicide Plan Description No Plan Tobacco & Substance use: Smoking Status Never smoker alcohol intake current alcohol intake frequency holiday/special occasion Substance Use Type does not use Meds Home Medications and Allergies Home Medications Medication Instructions Recorded Confirmed Type hydrochlorothiazide 25 mg tablet 25 mg PO DAILY 10/21/20 09/18/21 History losartan 50 mg tablet 100 mg PO DAILY 10/21/20 09/18/21 History pravastatin 20 mg tablet 20 mg PO DAILY 10/21/20 09/18/21 History aspirin 81 mg tablet,delayed 81 mg PO QPM 09/13/21 09/18/21 History release metformin 500 mg tablet,extended 2,000 mg PO QPM 09/13/21 09/18/21 History release 24 hr oxybutynin chloride 5 mg 5 mg PO QPM 09/13/21 09/18/21 History tablet,extended release 24 hr cefazolin 1 gram solution for 2 g IV Q8H #25 ea 09/17/21 09/18/21 Rx injection cyclobenzaprine 5 mg tablet 5 mg PO TID PRN #20 tab 09/17/21 09/18/21 Rx gabapentin 300 mg capsule 300 mg PO TID #20 cap 09/17/21 09/18/21 Rx (Neurontin) lidocaine 5 % topical patch 1 ea TOPICAL DAILY #10 ea 09/17/21 09/18/21 Rx oxycodone 5 mg tablet 5 mg PO Q6H PRN #20 tab 09/17/21 09/18/21 Rx Allergies Allergy/AdvReac Type Severity Reaction Status Date / Time Sulfa (Sulfonamide Allergy Mild RASH Verified 09/18/21 21:42 Antibiotics) [SULFA (SULFONAMIDE ANTIBIOTICS)] Review of Systems Review of Systems Narrative: 14 systems reviewed and negative aside from what is noted in HPI Exam Vital Signs (past 8 hours): - 09/18/21 21:28 09/18/21 23:30 09/19/21 04:00 Temperature 99 F 98.6 F 98.6 F Pulse Rate 98 H 90 90 Respiratory Rate 20 18 18 Blood Pressure 178/81 H 134/58 L 150/72 H Pulse Oximetry 98 97 98 Oxygen Delivery Method Room Air Oxygen Flow Rate 0 Narrative Exam Narrative: GEN: no acute distress HEENT: moist mucous membranes, PERRL NECK: trachea midline, no JVD CV: regular rate and rhyth, no murmurs PULM: clear bilaterally, no wheezes, rhonchi, rales ABD: soft, nontender, nondistended, no organomegaly EXT: warm and well perfused, toe bandaged NEURO: awake alert oriented, moving all extremities with no focal deficits, no numbness Objective Labs Result Diagrams: 09/18/21 21:55 09/18/21 21:55 Labs: Laboratory Results - last 24 hr 09/18/21 09/18/21 09/18/21 21:55 21:55 21:56 WBC 12.1 H RBC 3.41 L Hgb 10.1 L Hct 30.0 L MCV 88.2 MCH 29.5 MCHC 33.5 RDW 13.9 Plt Count 343 Neut % (Auto) Not Reportable Lymph % (Auto) Not Reportable [place] % (Auto) Not Reportable Eos % (Auto) Not Reportable Baso % (Auto) Not Reportable Lymph # (Auto) Not Reportable [place] # (Auto) Not Reportable Baso # (Auto) Not Reportable Total Counted 100 Seg Neutrophils % 71.0 H Band Neutrophils % 6.0 Lymphocytes % (Manual) 14.0 L Monocytes % (Manual) 8.0 Metamyelocytes % 1.0 H Neutrophils # (Manual) 9317 H RBC Morphology See below Polychromasia 1+ H Hypochromasia 1+ H ESR 66 H Sodium 127 L Potassium 3.7 Chloride 92 L Carbon Dioxide 31 BUN 22 H Creatinine 0.81 Estimated GFR > 60.0 BUN/Creatinine Ratio 27.2 H Glucose 191 H Calcium 8.7 Total Bilirubin 0.7 AST 40 H ALT 31 Alkaline Phosphatase 123 C-Reactive Protein 14.1 H Total Protein 6.4 Albumin 3.3 L Globulin 3.1 Albumin/Globulin Ratio 1.1 SARS-CoV-2 (PCR) Negative Assessment & Plan Assessment & Plan narrative: Ms. De Dios is a 61W with hospitalized recently for MSSA bacteremia and osteomyelitis who presents with worsening back pain. 1. Back pain, acute -etiology uncertain -had recent MRI with multiple findings including question of chronic changes vs very early discitis, along with multiple disc disease and stenosis -repeat MRI to further evaluate if back pain is related to infectious process -continue IV pain meds, gabapentin, flexeril -PT consult 2. MSSA bacteremia with osteomyelitis and left 1st toe postoperative infection -continue IV cefazolin -follow up repeated blood cultures from 09/18 and repeat on 09/19 -will need 6 weeks IV antibiotic and referal to ID clinic as outpatient -pending workup may need further back imaging of thoracic/cervical spine vs possible KATHY 3. Type 2 DM -insulin sliding scale 4. HTN -continue home meds 5. Obesity -BMI 33.5 -risk factor for wound healing CODE: Full Proxy: Jerod De Dios, I have utilized all available resources to reconcile the patient's home medications Time Spent With Patient Critical Care time: I spent a total of [] minutes of critical care time on this patient's care today; this time is exclusive of procedural time. Quality VTE Deep Vein Thrombosis/Pulmonary Embolism Present on Admission: No
[2021-09-18 22:16] LABS: COVID19 -Nasal RAPID Negative (Negative)
[2021-09-18 22:18] LABS: Alanine Aminotransferase 31 IU/L (<35); Albumin 3.3 g/dL (3.5-5.0); Albumin Globulin Ratio 1.1 (1.0-2.8); Alkaline Phosphatase 123 U/L (38-126); Aspartate Aminotransferase 40 IU/L (14-36); BUN Creatinine Ratio 27.2 (6-22); Bilirubin Total 0.7 mg/dL (0.2-1.3); Blood Urea Nitrogen 22 mg/dL (7-17); Calcium 8.7 mg/dL (8.4-10.2); Carbon Dioxide 31 mmol/L (22-32); Chloride 92 mmol/L (98-107); Estimated Glomerular Filt Rate > 60.0 mL/min (>60); Globulin 3.1 g/dL (1.7-4.1); Glucose 191 mg/dL (80-110); HEMOLYSIS < 15 (0-50); Potassium 3.7 mmol/L (3.4-5.1); Sodium 127 mmol/L (137-145); Total Protein 6.4 g/dL (6.3-8.2)
[2021-09-18 22:25] LABS: Erythrocyte Sedimentation Rate 66 MM/HR (0-20)
[2021-09-18 22:28] LABS: C-Reactive Protein Quant 14.1 mg/dL (<1.0)
--- NOTE | 2021-09-18 22:46 | PC.NURSE ---
Patient due for scheduled antibiotics she would be infusing at home. Patient brought medications and equipment to infuse, to administer.
[2021-09-18 22:48] LABS: Hypochromasia 1+; Neutrophils Absolute Manual 9317 /uL (3000-5900); Polychromasia 1+; Total Cells Counted 100
--- NOTE | 2021-09-18 23:08 | DI.MRI.S_ITS ---
PROCEDURE: MR LUMBAR SPINE WO/W CON INDICATIONS: worse back pain, bacteremia, evidence of abscess/discitis? TECHNIQUE: Noncontrast sagittal T1 spin echo and T2 fast echo, sagittal STIR, and T2 fast spin echo through the lumbar spine. In cases with scoliosis, additional coronal T2 fast spin echo may be performed. COMPARISON: [facility], MR, MR LUMBAR SPINE WO/W CON, 09/14/2021, 14:52. [facility], CT, CT ABDOMEN PELVIS W CON, 10/22/2020, 1:21. FINDINGS: Image quality: This examination is limited by involuntary motion artifact. Alignment and Curvature: There is normal bony alignment. Bone Marrow: Marrow is of normal overall signal. No acute vertebral body compression fractures. Spinal Cord: Conus medullaris terminates at the L1 level. Visualized cord demonstrates normal signal and size. Paraspinous Soft Tissues: No paravertebral masses. No significant abnormal paraspinous enhancement can be seen. T11-T12: Moderate loss of disc height is seen. Loss of disc signal is seen. Mild generalized disc bulge is seen. No significant neural foraminal or central canal narrowing can be seen. T12-L1: Moderate loss of disc height is seen. Loss of disc signal is seen. Minimal disc bulge is seen at this level. No significant neural foraminal or central canal narrowing can be seen. L1-L2: At least moderate loss of disc height is seen. Abnormally increased fluid signal can be seen along this disc level. Reactive marrow endplate changes are seen which are hypointense on T1-weighted imaging and hyperintense on T2 weighted imaging, which is most consistent with edema (Modic type I changes). There is significant endplate enhancement can be seen. Moderate disc bulge is seen, which is eccentric to the left. Mild facet joint hypertrophy is seen. There is moderate to severe bilateral neural foraminal narrowing seen. There is a degree of compression seen upon the exiting nerve roots. Moderate central canal narrowing is seen. When comparison is made with the prior images, these findings are similar. L2-L3: Moderate loss of disc height is seen. A mild amount of fluid signal can be seen along this disc level. Moderate generalized disc bulge is seen. There is a superimposed central disc protrusion. Moderate facet joint hypertrophy is seen. There is moderate to severe bilateral neural foraminal narrowing seen, right worse than left. There is a degree of compression seen upon the exiting nerve roots. Moderate central canal narrowing is seen. When comparison is made with the prior images, these findings are similar. L3-L4: [id number] loss of disc height and disc signal can be seen. At least moderate disc bulge is seen at this level. There is a superimposed central disc protrusion. At least moderate facet hypertrophy is seen. There is [id number] left-sided and moderate right-sided neural foraminal narrowing. [id number] central canal narrowing is seen. Stable from the prior study. L4-L5: The disc height is well-preserved. Loss of disc signal is seen at this level. Moderate generalized disc bulge is seen. There is a superimposed central disc protrusion. Prominent facet hypertrophy is seen. Associated hypertrophy of the ligamentum flavum can be seen. Fluid is seen within the facet joints themselves. There is at least moderate right-sided and moderate to severe left-sided neural foraminal narrowing. There is a degree of compression seen upon the exiting left L4 nerve root. Moderate to severe central canal narrowing is seen. Stable from the prior study. L5-S1: The disc height and disc signal are relatively well preserved. Mild generalized disc bulge is seen. Mild facet joint hypertrophy is seen. No significant neural foraminal or central canal narrowing can be seen. No significant change from the prior. IMPRESSION: Study similar to prior, with mild abnormal fluid signal at the L1-L2 and L2-L3 disc levels. These imaging findings are most compatible with chronic degenerative/reactive change. Discitis is possible, yet considered to be less likely. An epidural abscess is not seen. If clinically appropriate, please consider short-term follow-up MRI (without and with contrast). Dictated by: Elder Mehta M.D. on 09/19/2021 at 10:27 Approved by: Elder Mehta M.D. on 09/19/2021 at 10:37
[2021-09-18 23:14] VITALS: BMI 33.4
[2021-09-18 23:30] VITALS: BP 134/58; PULSE 90; RESP 18; TEMP 37; O2SAT 97
[2021-09-19] VITALS (9 sets, daily range): BP systolic 142–172; BP diastolic 52–79; PULSE 77–94; RESP 16–18; TEMP 35.9–37.1; O2SAT 92–99
[2021-09-19] MEDS: OXYCODONE IR 5 MG TABLET PO ×2 (01:08→05:14)
--- NOTE | 2021-09-19 02:20 | PC.NURSE ---
Patient admitted to AC unit at 2325, alert and oriented. Oriented to room and shown how to use call light. Reports pain 07/04. Brakes on bed are locked and bed is in low position.
[2021-09-19] MEDS: GABAPENTIN 300 MG CAPSULE PO ×3 (05:14→21:12)
[2021-09-19] MEDS: CYCLOBENZAPRINE 10 MG TABLET PO ×2 (05:14→22:48)
[2021-09-19 05:43] LABS: BUN Creatinine Ratio 30.9 (6-22); Blood Urea Nitrogen 21 mg/dL (7-17); Calcium 8.5 mg/dL (8.4-10.2); Carbon Dioxide 32 mmol/L (22-32); Chloride 95 mmol/L (98-107); Estimated Glomerular Filt Rate > 60.0 mL/min (>60); Glucose 140 mg/dL (80-110); HEMOLYSIS 28 (0-50); Potassium 3.6 mmol/L (3.4-5.1); Sodium 130 mmol/L (137-145)
[2021-09-19 06:05] LABS: Hematocrit 28.6 % (36-46); Hemoglobin 9.6 g/dL (12.0-16.0); Mean Corpuscular HGB Conc 33.6 % (30-36); Mean Corpuscular Hemoglobin 29.7 PG (26-34); Mean Corpuscular Volume 88.6 fL (80-100); Platelet Count 336 X10^3/uL (150-400); Red Blood Cell Count 3.23 X10^6/uL (4.0-5.2); Red Cell Distribution Width 14.1 % (11.6-14.8); White Blood Cell Count 10.4 X10^3/uL (4.5-11.0)
[2021-09-19 06:06] LABS: Add Manual Diff / Slide Review YES
[2021-09-19] MEDS: CEFAZOLIN 2 GM/20 ML SYRINGE IV ×3 (06:17→22:03)
[2021-09-19 06:51] LABS: Neutrophils Absolute Manual 6448 /uL (3000-5900); RBC Morphology Normal Morphology; Total Cells Counted 100
[2021-09-19] MEDS: ENOXAPARIN 40 MG/0.4 ML SYRINGE SUBCUT (08:38)
--- NOTE | 2021-09-19 08:42 | CM.DANOTE ---
Patient is a 61 yo female who is a READMIT on 09/18/21 for Back Pain. Pt has [employer] and [facility] for insurance and her PCP is Jennifer Lopez. EMR was reviewed. Per MD, pt was discharged home yesterday and returned last night after developing intractable back pain/immobility and admitted for workup and pain control. Likely repeat MRI. Pt is known to this SW from recent admission and discharge yesterday 09/18/21 as pt had been here for osteomyelitis of the 1st toe and discharged home via spouse POV and [facility] for IV-Abx Q8 and PICC as well as new [facility] referral. Pt and spouse live in a one story house on [address] and pt is typically independent at baseline and they deny any hx of HH or SNF and both are retired and therefore spouse available for assist. Pt to have f/u appointment with Dr. Mckinley on September 26 to determine possible need of amputation still pending progress with IV-Abx. Pt was also getting established with [facility] outpt. SW met bedside with pt again and she confirms that once she got home she could not move due to pain and feels there's a chance it could be constipation or SBO but awaiting imaging and possible Ortho Consult. Pt and spouse felt adept at managing pt's IV-Abx infusions and did not have concerns besides her significant back/abd pain. SW called [facility] and alerted them that pt readmitted in less than 24 hrs and they confirm that they do not need another F2F or orders but just updated clinicals faxed and d/c summary at discharge. AB Valdez kindly faxed updated notes from this admission. SW called [facility] to alert them that pt readmitted and to determine if they wanted to consult while pt was in the hospital per Ortho team prior to discharge yesterday or just schedule outpt appointment. SW called Carlos A at [facility] and updated that pt readmitted and they will follow for when pt discharges home and will need d/c summary. Plan: SW to follow closely for further workup and imaging to determine source of back pain and better pain management towards ongoing plan of return home with [facility] and [facility], both will need d/c summary at discharge but should not need any additional orders/pwk. LYNDSAY Shah Discharge Planning/Care Management Advanced directive, confirm from FAMILY Start: 09/18/21 23:25 Freq: Q24H Status: Active Protocol: Document 09/18/21 23:25 SH (Rec: 09/19/21 01:57 SH [id number]) Advance Directive, confirm on record Time 23:50 Person contacted patient Copy received No CM Discharge Assessment Start: 09/19/21 08:36 Freq: Status: Active Protocol: Document 09/19/21 08:38 BF (Rec: 09/19/21 08:42 BF [id number]) Discharge Planning Assessment Assigned Spiral Tube Winder LYNDSAY Arboleda DPOA/Assigned Designee Name spouse Stuart Advance Directives? No Advance Directives on File No History Provided By Patient,Significant Other, Medical Record Has Patient been admitted in last 30 Yes days? Comment Readmit from yesterday 09/18/21 to home with [facility] Prior Living Arrangements House Household Members spouse Type of transporation used prior to Drives own vehicle admit Independent with ADL's Yes Is patient alert and oriented? Yes Needs Assistance With Home Chores / Shopping Caregiver for Another No Community Services used prior to Physical Therapy admission: Patient/Family Preference Home with Home Health Comment Will need insurance auth if SNF Discharge Plan Home with Home Health Community Services Physical Therapy,Home Health Nurse,IV Therapy Transportation Arrangement spouse if safe for home vs SNF facility vehicle Referrals Initiated Home Health,Other Additional Comment Home infusion through [facility] and just was about to open with [facility] RN/PT If patient plan is home with home health Yes : Has signed face to face form been completed? SNF/HH Preference [facility] has the referral and F2F and MD orders Whiteboard Updated in Patient Room with Yes name and ext. # of Spiral Tube Winder Review Status In Process Please Provide Date Initial DC 09/19/21 Assessment Was Performed Next Review Type Continued Stay Review
--- NOTE | 2021-09-19 09:23 | CM.DPNOTE ---
Faxed referral packet to [facility] per [place] and received fax conf. Courtney Moore CM Assist.
[2021-09-19] MEDS: polyethylene glycoL 3350 17 GM POWD.PACK PO (12:27)
[2021-09-19] MEDS: BISACODYL 5 MG TABLET 10 MG PO (12:27)
[2021-09-19] MEDS: SENNOSIDES 8.6 MG TABLET PO ×2 (12:28→21:12)
[2021-09-19] MEDS: DOCUSATE 100 MG CAPSULE 200 MG PO ×2 (12:28→21:12)
--- NOTE | 2021-09-19 12:55 | PT.IIE ---
Medical History (Last Reviewed 09/19/21 @ 05:12 by Evan Urena MD) Diabetes Hyperlipidemia Hypertension Physical Therapy Inpatient Evaluation/Re-Eval M1 PT/OT-IP Prior Functional Status Start: 09/19/21 09:09 Freq: NEEDED Status: Active Protocol: Document 09/19/21 12:55 AW (Rec: 09/19/21 13:23 AW [id number]) Medical Review Prior Functional Status Medical History Reviewed Yes Communication Pt makes her needs known Mobility and Gait Pt is independently mobile at baseline. She has history of L great toe fusion s/p I&D on and is now able to do PWB LLE on her heel only. She uses a cam boot and FWW to transfer and walk short distances since surgery. She went home yesterday and was unable to rise from a chair due to intense back pain and so she returned to ED. Activities of Daily Living and IADL's Pt is typically independent with ADL's, now requiring assist with all. Social History Household Members spouse Living Arrangements House Number of Floors (Floors) One Floor Number of Stairs To Enter/Railing? Level entrance Home Environment High Toilet,Walk in Shower, Built-In Shower Seat Home Equipment Front Wheel Walker,Straight Cane,Manual Wheelchair,Hand Held Shower,Grab Bars Near Toilet,Grab Bars In Shower Additional Social History Comment Pt has an adjustable bed M2 PT-IP Current Condition Start: 09/19/21 09:09 Freq: NEEDED Status: Active Protocol: Document 09/19/21 12:55 AW (Rec: 09/19/21 13:23 AW [id number]) Physical Therapy Current Condition Current Condition Evaluation Date 09/19/21 Treatment Diagnosis acute back pain/spasm, L 1st MTP osteomyelitis s/p I&D; difficulty walking Onset Date 09/18/21 M3 PT-IP Subjective Start: 09/19/21 09:09 Freq: NEEDED Status: Active Protocol: Document 09/19/21 12:55 AW (Rec: 09/19/21 13:23 AW [id number]) Subjective Physical Therapy Visit Type Type Initial Evaluation Visit Start Time 12:19 Visit Stop Time 12:55 Total Visit Minutes 36 Notes Pt's spouse arrived soon after initiating evaluation. Physical Therapy Visit Comments Patient Comments Pt has had only one bowel movement in the past week (RN aware). She would like to try to use the commode. Therapy Pain Assessment Pain When Pain Assessed During Mobility Pain Present Pain Present Pain Reported Location lower back Intensity 7 Scale Used Numeric (0 - 10) Description Spasm Pain Behaviors Facial Grimacing,Guarding, Wincing Pain Management Techniques Distraction,Modification of Treatment,Re-positioning M4 PT-IP Mobility and Gait Start: 09/19/21 09:09 Freq: NEEDED Status: Active Protocol: Document 09/19/21 12:55 AW (Rec: 09/19/21 13:23 AW [id number]) PT-Bed Mobility Assessment Rolling Type of Rolling Log Rolling,Roll to Right Level of Assist Minimal Assistance,1 Person Assistance Supine to Sit Supine to Sit Moderate Assistance,1 Person Assistance,Bedrails Sit to Supine Sit to Supine Minimal Assistance,1 Person Assistance Scooting Scooting to Edge of Bed Minimal Assistance PT-Transfer Assessment Sit to and From Stand Sit to and from Stand Minimal Assistance,1 Person Assistance,Use of Upper Extremities Equipment Transfer Assistive Device Gait Belt,Front Wheeled Walker Orthotic/Prosthetic Devices or Brace: Yes Transfers Transfer Destination Bed,Bedside Commode Transfer Technique Stand Step Pivot Transfer Ability Level of Assist Minimal Assistance Comments Mobility Comments Pt was lying in bed as PT arrived. She requested to use the commode. Educated pt on log roll technique and pt was able to follow directions but needed min/mod assist to sit up on the right side of the bed via log roll. PT donned boot LLE and educated on PWB on heel only. Pt understood. She stood min A and used FWW to pivot to BSC set up on her right side. She voided but was unable to move her bowels. PT assisted with briefs management as pt stood and transferred back to bed min A x 1 with FWW and cues for LLE PWB. Pt returned to supine with cues for log roll and min A. She was left with call light and tray table in reach. Gait Assessment Gait Gait Assistance Required: Minimum Assistance Distance (Feet) 2 Able to Maintain Weight Bearing Status Yes During Gait Assistive Devices Assistive Device Gait Belt,Front Wheeled Walker Orthotic/Prosthetic Devices or Brace: Yes Comments Gait Comments See mobility comments for details. Steps taken during transfers only. Stair Climbing Assessment Comments Stair Climbing Comments Not assessed. No stairs at home. PT-Balance Assessment Sitting Balance and Reactions Static Sitting Balance Ability Good Dynamic Sitting Balance Ability Fair Standing Balance and Reactions Static Standing Balance Ability Fair Dynamic Standing Balance Ability Fair Device Used FWW M5 PT-IP Objective Assessments Start: 09/19/21 09:09 Freq: NEEDED Status: Active Protocol: Document 09/19/21 12:55 AW (Rec: 09/19/21 13:23 AW [id number]) Orientation Orientation/Cognition Level of Alertness Alert Orientation Name,Day of Week,Place, Situation Language Function Ability No Deficits Noted Safety Awareness Decreased Safety Awareness Memory Description No Deficits Noted Gross Range of Motion Lower Extremity ROM Assessment Within Functional Limits Strength Lower Extremity Strength Assessment Bilaterally Impaired Comments Strength Comments RLE 3+/5; LLE 3-/5 Sensation Assessment Sensation Gross Sensation Right LE Impaired,Left LE Impaired Light Touch Impaired Proprioception (Position) Impaired M6 PT-IP Treatment Start: 09/19/21 09:09 Freq: NEEDED Status: Active Protocol: Document 09/19/21 12:55 AW (Rec: 09/19/21 13:23 AW [id number]) Physical Therapy Treatment Education Education Provided Weight Bearing Status,Safety M7 PT-IP Assessment and Plan Start: 09/19/21 09:09 Freq: NEEDED Status: Active Protocol: Document 09/19/21 12:55 AW (Rec: 09/19/21 13:23 AW [id number]) PT Summary Assessment and Plan Potential Rehabilitation Potential Fair Status of Condition at Evaluation Evolving Summary Impairments Pain,Strength,Balance, Sensation,Bed Mobility, Transfers,Gait,Activity Tolerance Assessment Summary Janneth is a 61 yo woman with recent history of left 1st MTP osteomyelitis s/p I&D. She is typically independent with mobility but is now PWB LLE on the heel only and uses a boot and FWW to transfer and walk short distances. She is re- admitted with back pain and complains of constipation. On assessment today, pt tolerated very little activity and required min to mod assist with bed mobility and transfers. Pt will need to be able to ambulate household distances and transfer safely while maintaining her weightbearing restriction if she plans to go home. PT will continue to assess but pt may require SNF rehab at this time . Goals Bed Mobility Goal Standby Assistance Transfer Goal Contact Guard Assistance,Front Wheeled Walker Gait Goal Contact Guard Assistance,Front Wheel Walker Gait Distance 25 Days to Meet Goals 10 Frequency of Treatment Frequency Of Treatment Once a Day Treatment Plan Physical Therapy Treatment Plan Bed Mobility Training,Transfer Training,Gait Training, Therapeutic Exercise,Balance Retraining,Post Op Education, Discharge Planning Other Recommendations and Next Treatment review log roll bed mobility; Focus transfers and gait with FWW as able; if going home, will need to coordinate further caregiver training. Weight Bearing Status Weight Bearing Status Partial Weight Bearing Allowed Weight Bearing Amount (enter % PWB LLE on heel only or #) (%) Recommendations To Nursing Amount of Assist Needed 1 Person Assist,2 Person Assist Discharge Recommendations PT Discharge Recommendations Home with 15/01 Assist Available,Home Health,SNF Rehab,Home vs SNF Equipment Needed for Home Before PT recommending BSC if pt goes Discharge home Transportation Needs at Discharge Private Vehicle,Wheelchair/ Cabulance
[2021-09-19] MEDS: INSULIN LISPRO 100 UNIT/ML 3ML VIAL SUBCUT ×2 (13:25→18:03)
--- NOTE | 2021-09-19 14:58 | P.PN_ITS ---
Subjective Subjective Date Patient Seen: 09/19/21 Time Patient Seen: 14:58 Interval history: Still with intermittent spasms in her back as well as mild abdominal pain. No bowel movement as of this afternoon. MRI shows stable findings from prior admission, per read is very unlikely discitis. Remains on ancef for prior bacteremia. Exam Vital Signs (past 8 hours): - 09/19/21 08:30 09/19/21 09:10 09/19/21 12:00 Temperature 98.1 F 97.6 F Pulse Rate 94 H 92 H Respiratory Rate 18 18 Blood Pressure 164/79 H 162/76 H Pulse Oximetry 99 99 98 Oxygen Delivery Method Room Air Oxygen Flow Rate 0 Narrative Exam Narrative: GEN: no acute distress HEENT: moist mucous membranes, PERRL NECK: trachea midline, no JVD CV: regular rate and rhyth, no murmurs PULM: clear bilaterally, no wheezes, rhonchi, rales ABD: soft, nontender, nondistended, no organomegaly EXT: warm and well perfused, toe bandaged NEURO: awake alert oriented, moving all extremities with no focal deficits, no numbness Objective Labs Result Diagrams: 09/19/21 05:40 09/19/21 05:00 Labs: Laboratory Results - last 24 hr 09/18/21 09/18/21 09/18/21 21:55 21:55 21:56 WBC 12.1 H RBC 3.41 L Hgb 10.1 L Hct 30.0 L MCV 88.2 MCH 29.5 MCHC 33.5 RDW 13.9 Plt Count 343 Neut % (Auto) Not Reportable Lymph % (Auto) Not Reportable King[place] % (Auto) Not Reportable Eos % (Auto) Not Reportable Baso % (Auto) Not Reportable Lymph # (Auto) Not Reportable Kingman # (Auto) Not Reportable Baso # (Auto) Not Reportable Total Counted 100 Seg Neutrophils % 71.0 H Band Neutrophils % 6.0 Lymphocytes % (Manual) 14.0 L Monocytes % (Manual) 8.0 Eosinophils % (Manual) Metamyelocytes % 1.0 H Myelocytes % Neutrophils # (Manual) 9317 H RBC Morphology See below Polychromasia 1+ H Hypochromasia 1+ H ESR 66 H Sodium 127 L Potassium 3.7 Chloride 92 L Carbon Dioxide 31 BUN 22 H Creatinine 0.81 Estimated GFR > 60.0 BUN/Creatinine Ratio 27.2 H Glucose 191 H Calcium 8.7 Total Bilirubin 0.7 AST 40 H ALT 31 Alkaline Phosphatase 123 C-Reactive Protein 14.1 H Total Protein 6.4 Albumin 3.3 L Globulin 3.1 Albumin/Globulin Ratio 1.1 SARS-CoV-2 (PCR) Negative 09/19/21 09/19/21 05:00 05:40 WBC 10.4 RBC 3.23 L Hgb 9.6 L Hct 28.6 L MCV 88.6 MCH 29.7 MCHC 33.6 RDW 14.1 Plt Count 336 Neut % (Auto) Not Reportable Lymph % (Auto) Not Reportable Kingman % (Auto) Not Reportable Eos % (Auto) Not Reportable Baso % (Auto) Not Reportable Lymph # (Auto) Not Reportable Kingman # (Auto) Not Reportable Baso # (Auto) Not Reportable Total Counted 100 Seg Neutrophils % 60.0 Band Neutrophils % 2.0 L Lymphocytes % (Manual) 29.0 Monocytes % (Manual) 5.0 Eosinophils % (Manual) 3.0 Metamyelocytes % Myelocytes % 1.0 H Neutrophils # (Manual) 6448 H RBC Morphology Normal morphology Polychromasia Hypochromasia ESR Sodium 130 L Potassium 3.6 Chloride 95 L Carbon Dioxide 32 BUN 21 H Creatinine 0.68 Estimated GFR > 60.0 BUN/Creatinine Ratio 30.9 H Glucose 140 H Calcium 8.5 Total Bilirubin AST ALT Alkaline Phosphatase C-Reactive Protein Total Protein Albumin Globulin Albumin/Globulin Ratio SARS-CoV-2 (PCR) [facility] Medical History Diabetes Hyperlipidemia Hypertension Surgical History H/O foot surgery History of cholecystectomy Family History Mother Diabetes mellitus Father Diabetes mellitus Other Hypertension Social History household members: spouse Smoking Status: Never smoker alcohol intake: current Assessment & Plan Assessment & Plan narrative: Ms. De Dios is a 61W with hospitalized recently for MSSA bacteremia and osteomyelitis who presents with worsening back pain. 1. Back pain, acute -etiology uncertain, but likely musculoskeletal and or constipation in nature after extensive imaging. -had recent MRI with multiple findings including question of chronic changes vs very early discitis, along with multiple disc disease and stenosis -repeat MRI to further evaluate if back pain is related to infectious process was unchanged and back pain not likely due to discitis. -continue pain meds, gabapentin, flexeril. Started on aggressive laxitive therapy, last BM was 5 days ago. -PT consult today 2. MSSA bacteremia with osteomyelitis and left 1st toe postoperative infection -continue IV cefazolin. Patient's 09/15 blood cultures were positive but after 4 days. PICC line was placed on 09/17 but possibly was still bacteremic. -follow up repeated blood cultures from 09/18 and repeat on 09/19 ordered. -will need 6 weeks IV antibiotic and referal to ID clinic as outpatient -pending workup may need possible KATHY if she remains bacteremic. -orthopedic surgery would like to follow after discussions this morning, consult order placed. 3. Type 2 DM -insulin sliding scale 4. HTN -continue home meds 5. Obesity -BMI 33.5 -risk factor for wound healing CODE: Full Proxy: Jerod De Dios, I have utilized all available resources to reconcile the patient's home medications Time Spent With Patient Critical Care time: I spent a total of [] minutes of critical care time on this patient's care today; this time is exclusive of procedural time. Quality VTE Deep Vein Thrombosis/Pulmonary Embolism Present on Admission: No
--- NOTE | 2021-09-19 16:50 | P.PN_ITS ---
Subjective Subjective Date Patient Seen: 09/19/21 Time Patient Seen: 07:45 Interval history: Patient was discharged on September 18, 2021. She returns and was admitted to the hospital for back pain. Patient underwent left 1st toe irrigation and debridement on September 13, 2021. She recalls a day or 2 after surgery she was having back pain. Patient was stable and deemed safe to be discharged. Pain medicine was not controlling her pain. She was significantly limited in her mobility secondary to the back pain. She denies fever chills. No bowel or bladder dysfunction. Patient states her pain is centered in the lower lumbar spine without radiation into the extremities. Exam Vital Signs (past 8 hours): - 09/19/21 09:10 09/19/21 12:00 09/19/21 16:00 Temperature 97.6 F 97 F L Pulse Rate 92 H 94 H Respiratory Rate 18 18 Blood Pressure 162/76 H 172/75 H Pulse Oximetry 99 98 97 Oxygen Delivery Method Room Air Oxygen Flow Rate 0 Narrative Exam Narrative: 61-year-old female resting comfortably in bed in no apparent distress. Left 1st toe dressing is Clean, dry, intact.. Negative straight leg raise supine bilat erally. 5/5 strength bilateral lower extremities. Sensation grossly intact to light touch bilateral lower extremities. Objective Labs Result Diagrams: 09/19/21 05:40 09/19/21 05:00 Labs: Laboratory Results - last 24 hr 09/18/21 09/18/21 09/18/21 21:55 21:55 21:56 WBC 12.1 H RBC 3.41 L Hgb 10.1 L Hct 30.0 L MCV 88.2 MCH 29.5 MCHC 33.5 RDW 13.9 Plt Count 343 Neut % (Auto) Not Reportable Lymph % (Auto) Not Reportable Casey % (Auto) Not Reportable Eos % (Auto) Not Reportable Baso % (Auto) Not Reportable Lymph # (Auto) Not Reportable Casey # (Auto) Not Reportable Baso # (Auto) Not Reportable Total Counted 100 Seg Neutrophils % 71.0 H Band Neutrophils % 6.0 Lymphocytes % (Manual) 14.0 L Monocytes % (Manual) 8.0 Eosinophils % (Manual) Metamyelocytes % 1.0 H Myelocytes % Neutrophils # (Manual) 9317 H RBC Morphology See below Polychromasia 1+ H Hypochromasia 1+ H ESR 66 H Sodium 127 L Potassium 3.7 Chloride 92 L Carbon Dioxide 31 BUN 22 H Creatinine 0.81 Estimated GFR > 60.0 BUN/Creatinine Ratio 27.2 H Glucose 191 H Calcium 8.7 Total Bilirubin 0.7 AST 40 H ALT 31 Alkaline Phosphatase 123 C-Reactive Protein 14.1 H Total Protein 6.4 Albumin 3.3 L Globulin 3.1 Albumin/Globulin Ratio 1.1 SARS-CoV-2 (PCR) Negative 09/19/21 09/19/21 05:00 05:40 WBC 10.4 RBC 3.23 L Hgb 9.6 L Hct 28.6 L MCV 88.6 MCH 29.7 MCHC 33.6 RDW 14.1 Plt Count 336 Neut % (Auto) Not Reportable Lymph % (Auto) Not Reportable Casey % (Auto) Not Reportable Eos % (Auto) Not Reportable Baso % (Auto) Not Reportable Lymph # (Auto) Not Reportable Casey # (Auto) Not Reportable Baso # (Auto) Not Reportable Total Counted 100 Seg Neutrophils % 60.0 Band Neutrophils % 2.0 L Lymphocytes % (Manual) 29.0 Monocytes % (Manual) 5.0 Eosinophils % (Manual) 3.0 Metamyelocytes % Myelocytes % 1.0 H Neutrophils # (Manual) 6448 H RBC Morphology Normal morphology Polychromasia Hypochromasia ESR Sodium 130 L Potassium 3.6 Chloride 95 L Carbon Dioxide 32 BUN 21 H Creatinine 0.68 Estimated GFR > 60.0 BUN/Creatinine Ratio 30.9 H Glucose 140 H Calcium 8.5 Total Bilirubin AST ALT Alkaline Phosphatase C-Reactive Protein Total Protein Albumin Globulin Albumin/Globulin Ratio SARS-CoV-2 (PCR) [facility] Medical History Diabetes Hyperlipidemia Hypertension Surgical History H/O foot surgery History of cholecystectomy Family History Mother Diabetes mellitus Father Diabetes mellitus Other Hypertension Social History household members: spouse Smoking Status: Never smoker alcohol intake: current Assessment & Plan Assessment and plan Plan Patient admitted to hospitalist service. Dr. Jason is repeating her MRI. PT consulted. Continue IV cefazolin per discharge instructions. Patient is also to arrange outpatient wound care. She is scheduled to follow-up with Dr. Martin on September 27 for evaluation and decision regarding continued attempts at conservative management versus potential amputation. Orthopedics will continue to follow patient while in the hospital. Time Spent With Patient Critical Care time: I spent a total of [] minutes of critical care time on this patient's care today; this time is exclusive of procedural time. Quality VTE Deep Vein Thrombosis/Pulmonary Embolism Present on Admission: No
[2021-09-19] MEDS: SODIUM CHLORIDE 0.9% FLUSH 10 ML IV (21:12)
[2021-09-19] MEDS: BISACODYL 10 MG SUPP PR (21:12)
[2021-09-20] VITALS (9 sets, daily range): BP systolic 150–185; BP diastolic 75–82; PULSE 87–103; RESP 16–21; TEMP 36.3–36.9; O2SAT 94–100
[2021-09-20] MEDS: OXYCODONE IR 5 MG TABLET PO (00:40)
[2021-09-20] MEDS: CEFAZOLIN 2 GM/20 ML SYRINGE IV ×3 (06:03→22:00)
[2021-09-20] MEDS: GABAPENTIN 300 MG CAPSULE PO ×3 (06:03→22:00)
[2021-09-20] MEDS: SODIUM CHLORIDE 0.9% FLUSH 10 ML IV ×3 (06:04→22:01)
[2021-09-20 06:47] LABS: Hematocrit 29.7 % (36-46); Hemoglobin 10.1 g/dL (12.0-16.0); Mean Corpuscular Hemoglobin 29.9 PG (26-34); Platelet Count 407 X10^3/uL (150-400); Red Blood Cell Count 3.37 X10^6/uL (4.0-5.2); Red Cell Distribution Width 14.1 % (11.6-14.8); White Blood Cell Count 10.8 X10^3/uL (4.5-11.0)
[2021-09-20 06:48] LABS: Add Manual Diff / Slide Review YES
[2021-09-20 06:52] LABS: Alanine Aminotransferase 20 IU/L (<35); Albumin 3.2 g/dL (3.5-5.0); Alkaline Phosphatase 108 U/L (38-126); Aspartate Aminotransferase 39 IU/L (14-36); BUN Creatinine Ratio 19.4 (6-22); Bilirubin Total 0.7 mg/dL (0.2-1.3); Blood Urea Nitrogen 13 mg/dL (7-17); Calcium 8.5 mg/dL (8.4-10.2); Carbon Dioxide 32 mmol/L (22-32); Chloride 91 mmol/L (98-107); Estimated Glomerular Filt Rate > 60.0 mL/min (>60); Globulin 3.2 g/dL (1.7-4.1); Glucose 173 mg/dL (80-110); HEMOLYSIS < 15 (0-50); Potassium 3.9 mmol/L (3.4-5.1); Sodium 126 mmol/L (137-145); Total Protein 6.4 g/dL (6.3-8.2)
[2021-09-20 07:21] LABS: Neutrophils Absolute Manual 7560 /uL (3000-5900); RBC Morphology Normal Morphology; Total Cells Counted 100
[2021-09-20] MEDS: SENNOSIDES 8.6 MG TABLET PO ×2 (09:44→22:00)
[2021-09-20] MEDS: DOCUSATE 100 MG CAPSULE 200 MG PO ×2 (09:44→22:00)
[2021-09-20] MEDS: CYCLOBENZAPRINE 10 MG TABLET PO (09:44)
[2021-09-20] MEDS: ENOXAPARIN 40 MG/0.4 ML SYRINGE SUBCUT (09:44)
[2021-09-20] MEDS: INSULIN LISPRO 100 UNIT/ML 3ML VIAL SUBCUT ×4 (09:57→22:00)
--- NOTE | 2021-09-20 11:00 | PC.NURSE ---
Patient had been using a purewick urinary device in bed. Educated patient on need to increase activity and attempt to use the BSC with assistance to urinate. Patient agrees. Pericare provided and assistance to change brief given, patient then up to BS with 1-2 PA and tolerated well. Will continue to monitor and encourage PT and increased activity levels.
--- NOTE | 2021-09-20 11:24 | P.PN_ITS ---
Subjective Subjective Date Patient Seen: 09/20/21 Time Patient Seen: 18:47 Interval history: Patient is complaining of moderate to severe back pain. She notes it is radiating down her posterior legs right worse than left occasionally. She denies any bowel or bladder changes. No saddle anesthesia. No fevers, chills, night sweats. She was able to get up with physical therapy today. A repeat MRI scan shows low likelihood of diskitis. Patient underwent a left big toe fusion with Dr. Mckinley on 08/23/2021. She was readmitted on 09/13/2021 for left toe cellulitis. Dr. Yang did a left toe I&D on 09/13. The patient was readmitted again on 09/18 for dis kitis/intractable low back pain. Patient notes she is not having any pain in her left toe, she has baseline peripheral neuropathy and does not have sensation. She does note an increase in drainage. Exam Vital Signs (past 8 hours): - 09/20/21 04:33 09/20/21 07:59 09/20/21 09:53 Temperature 98.5 F 98.5 F Pulse Rate 94 H 87 Respiratory Rate 16 20 Blood Pressure 166/81 H 163/75 H Pulse Oximetry 97 97 97 09/20/21 11:00 Temperature 98.4 F Pulse Rate 95 H Respiratory Rate 21 Blood Pressure 161/82 H Pulse Oximetry 100 Oxygen Delivery Method Room Air Oxygen Flow Rate 0 Narrative Exam Narrative: 61yo female resting comfortably in bed, no acute distress. Left Big toe demonstrates packing in place, necrotic tissue, mild drainage, no fluctuance. No surrounding erythema or edema. Bilateral lower extremity: Motor function is grossly intact, sensation is decreased bilaterally, calves are soft and nontender to palpation. Objective Labs Result Diagrams: 09/20/21 06:10 09/20/21 06:10 Labs: Laboratory Results - last 24 hr 09/20/21 09/20/21 06:10 06:10 WBC 10.8 RBC 3.37 L Hgb 10.1 L Hct 29.7 L MCV 88.0 MCH 29.9 MCHC 34.0 RDW 14.1 Plt Count 407 H Neut % (Auto) Not Reportable Lymph % (Auto) Not Reportable [place] % (Auto) Not Reportable Eos % (Auto) Not Reportable Baso % (Auto) Not Reportable Lymph # (Auto) Not Reportable [place] # (Auto) Not Reportable Baso # (Auto) Not Reportable Total Counted 100 Seg Neutrophils % 66.0 Band Neutrophils % 4.0 Lymphocytes % (Manual) 24.0 L Monocytes % (Manual) 3.0 Eosinophils % (Manual) 2.0 Metamyelocytes % 1.0 H Neutrophils # (Manual) 7560 H RBC Morphology Normal morphology Sodium 126 L Potassium 3.9 Chloride 91 L Carbon Dioxide 32 BUN 13 Creatinine 0.67 Estimated GFR > 60.0 BUN/Creatinine Ratio 19.4 Glucose 173 H Calcium 8.5 Total Bilirubin 0.7 AST 39 H ALT 20 Alkaline Phosphatase 108 Total Protein 6.4 Albumin 3.2 L Globulin 3.2 Albumin/Globulin Ratio 1.0 PFSH Medical History Diabetes Hyperlipidemia Hypertension Surgical History H/O foot surgery History of cholecystectomy Family History Mother Diabetes mellitus Father Diabetes mellitus Other Hypertension Social History household members: spouse Smoking Status: Never smoker alcohol intake: current Assessment & Plan Assessment & Plan narrative: 1. Back pain, acute -etiology uncertain, but likely musculoskeletal and or constipation in nature after extensive imaging. -had recent MRI with multiple findings including question of chronic changes vs very early discitis, along with multiple disc disease and stenosis; with repeat MRI showing highly unlikely to be discitis -continue pain meds, gabapentin, flexeril. Started on aggressive laxitive therapy, last BM was 5 days ago. -continue with PT -reviewed with joe Duke to d/c regarding back pain and follow up outpatient 2. MSSA bacteremia with osteomyelitis and left 1st toe postoperative infection due to Staphylococcus aureus: -continue IV cefazolin. Patient's 09/15 blood cultures were positive but after 4 days. PICC line was placed on 09/17 but possibly was still bacteremic. -hospitalist is following repeated blood cultures from 09/18 and 09/19 -will need 6 weeks IV antibiotic and referal to ID clinic as outpatient -dressing and packing changed today. -This case was discussed with one of Dr Mckinley's colleague's as well as Dr Tom Montes's office - she is well-known to him and his staff.? Plan at this time is to leave screw in place. Will need to contact Dr. Montes's office on 09/21/21 to dicuss wound care options to give their opinion on viability of the toe. Unfortunately, they do not do inpatient consults. ? At this time, recommending discharge with IV antibiotics (with addition of rifampin per Dr Jason's note), outpatient wound care, and follow up with Dr Mckinley as scheduled on 09/28/2021.? -daily dressing changes. Possible daily packing changes, will determine on 09/21/21 -WBAT on her left heel for ease of mobilization. -Reviewed with Dr. Hamlin, who agrees with the plan. Discussed with patient the potential for possible amputation in the future. Dr. Mckinley is returning to [facility] on 09/28/21, and patient already has an appointment with her on that day 3. Type 2 DM -insulin sliding scale 4. HTN -continue home meds 5. Obesity -BMI 33.5 -risk factor for wound healing Time Spent With Patient Critical Care time: I spent a total of [] minutes of critical care time on this patient's care today; this time is exclusive of procedural time. Quality VTE Deep Vein Thrombosis/Pulmonary Embolism Present on Admission: No
--- NOTE | 2021-09-20 12:20 | PT.IPTN ---
Physical Therapy Treatment Note M2 PT-IP Current Condition Start: 09/19/21 09:09 Freq: NEEDED Status: Active Protocol: Document 09/19/21 12:55 AW (Rec: 09/19/21 13:23 AW [id number]) Physical Therapy Current Condition Current Condition Evaluation Date 09/19/21 Treatment Diagnosis acute back pain/spasm, L 1st MTP osteomyelitis s/p I&D; difficulty walking Onset Date 09/18/21 M3 PT-IP Subjective Start: 09/19/21 09:09 Freq: NEEDED Status: Active Protocol: Document 09/20/21 11:55 KS (Rec: 09/20/21 14:09 KS [id number]) Subjective Physical Therapy Visit Type Type Treatment Note Visit Start Time 11:55 Visit Stop Time 12:20 Total Visit Minutes 25 Notes Pt spouse present for caregiver training. Number of DIRECTOR VALIDATION Visits 1 Physical Therapy Visit Comments Patient Comments Pt requesting to use BSC. Therapy Pain Assessment Pain When Pain Assessed After Treatment Pain Present Pain Present Pain Reported M4 PT-IP Mobility and Gait Start: 09/19/21 09:09 Freq: NEEDED Status: Active Protocol: Document 09/20/21 11:55 KS (Rec: 09/20/21 14:09 KS [id number]) PT-Bed Mobility Assessment Rolling Type of Rolling Log Rolling,Roll to Right Level of Assist Contact Guard Assistance,1 Person Assistance Supine to Sit Supine to Sit Contact Guard Assistance,1 Person Assistance,Bedrails Scooting Scooting to Edge of Bed Contact Guard Assistance PT-Transfer Assessment Sit to and From Stand Sit to and from Stand Moderate Assistance,1 Person Assistance,Use of Upper Extremities Equipment Transfer Assistive Device Gait Belt,Front Wheeled Walker Orthotic/Prosthetic Devices or Brace: Yes Transfers Transfer Destination Chair,Bedside Commode Transfer Technique Pt ambulated w/ FWW Transfer Ability Level of Assist Minimal Assistance,Moderate Assistance Comments Mobility Comments Pt in bed upon arrival w/ spouse in room. CGA for sup<> sit and scooting EOB. Mod A for sit<>Stand w/ FWW and stand step pivot to BSC. Pt able to use arm rests to descend slowly. After voiding, pts provided Mod A for sit<>Stand w/ FWW and pt needing cues for hand placement and sequencing. Upon standing, pt leaned to L and put almost all weight on L foot. She needs very frequent reminders throughout treatment to maintain PWB through heel only and seems to have false sense of security when wearing boot. She then ambulated ~15 ft to chair on other side of room w/ provided CGA. Once in chair, RN discussed lack of back pain during mobility and pt agreed, but the began c/o back pain w/ movements such as reaching for call light and scooting back in chair. Provided exercises for pt to complete while in chair. Pt left in chair w/ all needs in reach. Gait Assessment Gait Gait Assistance Required: Contact Guard Assist,1 Person Assist Distance (Feet) 15 Able to Maintain Weight Bearing Status No During Gait Assistive Devices Assistive Device Gait Belt,Front Wheeled Walker Orthotic/Prosthetic Devices or Brace: Yes Gait Deviations General Gait Pattern Antalgic,Decreased Stride Length,Decreased Feet Clearance,Flexed Trunk,Lateral Trunk Lean,Step-to Gait Factors Limiting Gait Function Factors Limiting Gait Function Decreased Activity Tolerance, Decreased Sensation,Decreased Strength,Poor Balance,Poor Safety Awareness Comments Gait Comments Pt w/ poor safety awareness and not able to consistently maintain PWB through L heel during ambulation needing frequent reminders. Pts able to assist. Stair Climbing Assessment Comments Stair Climbing Comments Not assessed. No stairs at home. PT-Balance Assessment Sitting Balance and Reactions Static Sitting Balance Ability Good Dynamic Sitting Balance Ability Fair Standing Balance and Reactions Static Standing Balance Ability Fair Dynamic Standing Balance Ability Fair Device Used FWW M5 PT-IP Objective Assessments Start: 09/19/21 09:09 Freq: NEEDED Status: Active Protocol: Document 09/19/21 12:55 AW (Rec: 09/19/21 13:23 AW [id number]) Orientation Orientation/Cognition Level of Alertness Alert Orientation Name,Day of Week,Place, Situation Language Function Ability No Deficits Noted Safety Awareness Decreased Safety Awareness Memory Description No Deficits Noted Gross Range of Motion Lower Extremity ROM Assessment Within Functional Limits Strength Lower Extremity Strength Assessment Bilaterally Impaired Comments Strength Comments RLE 3+/5; LLE 3-/5 Sensation Assessment Sensation Gross Sensation Right LE Impaired,Left LE Impaired Light Touch Impaired Proprioception (Position) Impaired M6 PT-IP Treatment Start: 09/19/21 09:09 Freq: NEEDED Status: Active Protocol: Document 09/20/21 11:55 KS (Rec: 09/20/21 14:09 KS [id number]) Physical Therapy Treatment Exercises Exercises Ankle Pumps,Gluteal Sets, Seated Knee Flexion/Extension Education Education Provided Weight Bearing Status,Safety M7 PT-IP Assessment and Plan Start: 09/19/21 09:09 Freq: NEEDED Status: Active Protocol: Document 09/20/21 11:55 KS (Rec: 09/20/21 14:09 KS [id number]) PT Summary Assessment and Plan Potential Rehabilitation Potential Fair Status of Condition at Evaluation Evolving Summary Impairments Pain,Strength,Balance, Sensation,Bed Mobility, Transfers,Gait,Activity Tolerance Assessment Summary Pt limited by weakness and poor safety awareness. CGA for bed mobility, Min to Mod for sit<>Stand w/ FWW and CGA for short bout of ambulation which was able to assist w/ however pt not safe due to inability to maintain weight bearing through heel w/o constant reminders. PT will continue to assess but pt may require SNF rehab at this time . Goals Bed Mobility Goal Standby Assistance Transfer Goal Contact Guard Assistance,Front Wheeled Walker Gait Goal Contact Guard Assistance,Front Wheel Walker Gait Distance 25 Days to Meet Goals 10 Frequency of Treatment Frequency Of Treatment Once a Day Treatment Plan Physical Therapy Treatment Plan Bed Mobility Training,Transfer Training,Gait Training, Therapeutic Exercise,Balance Retraining,Post Op Education, Discharge Planning Other Recommendations and Next Treatment review log roll bed mobility; Focus transfers and gait with FWW as able; if going home, will need to coordinate further caregiver training. Weight Bearing Status Weight Bearing Status Partial Weight Bearing Allowed Weight Bearing Amount (enter % PWB LLE on heel only or #) (%) Recommendations To Nursing Amount of Assist Needed 1 Person Assist,2 Person Assist Discharge Recommendations PT Discharge Recommendations Home with 15/01 Assist Available,Home Health,SNF Rehab,Home vs SNF Equipment Needed for Home Before PT recommending BSC if pt goes Discharge home Transportation Needs at Discharge Private Vehicle,Wheelchair/ Cabulance
--- NOTE | 2021-09-20 12:25 | PC.NURSE ---
Spoke with Charmaine GARCIA about 8am this morning, requesting clarification on dressing change orders to left toe and written order for activity/weight bearing status clarification. Charmaine Baca came up to see patient and undressed toe to visualize. Verbal order given to redress toe at this time: cover with xeroform, then 2x2 gauze and wrap with gauze kerlex and secure around foot. Wrap with ZEYAD wrap. Dressing change completed, and P.T. into work with patient. Charmaine Baca will continue to attempt to reach surgeon and wound care for consultation and further plan of care. Will continue to monitor.
--- NOTE | 2021-09-20 12:36 | CM.DPNOTE ---
DCP Note Coordinating care plan/DCP w/ team this morning- Dr Johnson, nursing, PT and w/UR TRISTAN Michel. Patient is observation status at this time Met w/patient and spouse briefly, patient states she does not feel prepared for DC d/t her continued back spasms. Dr Johnson walked in for his assessment soon after the start of this conversation, will return to discuss DCP According to Dr Johnson, MRI is Neg for any abnormality of the spine; Dr Johnson suspects these are back spasms that would typically be treated w/ massage, gentle movement and pain management as needed. In addition, Ortho team has assessed patient's toe today and it does not look good. Dr Johnson awaiting further communication from Ortho team re next steps (?) SERGE Schilling shares w/this ASSURANCE SPECIALIST that assessing patient's understanding and compliance of weight bearing status on that foot/toe is difficult. Patient's cognition appears to wax and wane a bit, as does patient's complaints of back pain/spasms. WINDOWS SYSTEMS ADMIN relays that patient/spouse have asked about SNF placement but WINDOWS SYSTEMS ADMIN does not feel patient requires this level of care. Explained that patient's private insurer, [employer], will be a barrier to SNF placement Currently; placing DCP efforts on hold as we are pending input from Ortho team on next steps in POC for patient's toe (wound care needs?). Resumption of [facility] services and [facility] can be easily done upon DC. LM for [facility] asking when HH Nursing can see patient for wound care. Awaiting MANFRED Warner ASSURANCE SPECIALIST had initiated calls to [facility] upon patient's DC 3., unsure the availability for f/u at the wound care center, patient is not established w/this clinic CM team will plan to follow closely for coordination of this DCP, likely DC w/in 24-48 hrs JW
--- NOTE | 2021-09-20 17:28 | PM.PN.1 ---
Subjective Subjective Interval history: Patient complaining of back spasms this morning. She reports they are worse with movement, especially if sudden. She reports possible radiation down her right leg, but is unsure. She denies bladder/bowel incontinence, saddle anesthesia, or lower extremity paresthesias. She denies left toe pain. Exam Vital Signs (past 8 hours): - 09/20/21 09:53 09/20/21 11:00 09/20/21 15:00 Temperature 98.4 F 97.4 F L Pulse Rate 95 H 89 Respiratory Rate 21 19 Blood Pressure 161/82 H 163/78 H Pulse Oximetry 97 100 95 Oxygen Delivery Method Room Air Oxygen Flow Rate 0 Const Other: Patient laying in bed comfortably upon my entering the room, in no apparent acute distress. Eyes Other: No scleral icterus appreciated. Resp Other: Lungs clear to auscultation bilatereally. Cardio Other: RRR. S1 and S2 heart sounds normal, without extra heart sounds or murmurs. No peripheral edema noted. GI Other: Soft, non-distended, non-tender. Bowel sounds present. Back/Spine/Pelvis Other: Lumbar paraspinal tenderness appreciated, with deep palpation. Skin Other: No grossly abnormal skin lesions noted. Extrem Other: Bandage over left first toe appreciated, without purulence drainage or surrounding erythema. Objective Labs Result Diagrams: 09/20/21 06:10 09/20/21 06:10 Labs: Laboratory Results - last 24 hr 09/20/21 09/20/21 06:10 06:10 WBC 10.8 RBC 3.37 L Hgb 10.1 L Hct 29.7 L MCV 88.0 MCH 29.9 MCHC 34.0 RDW 14.1 Plt Count 407 H Neut % (Auto) Not Reportable Lymph % (Auto) Not Reportable [place] % (Auto) Not Reportable Eos % (Auto) Not Reportable Baso % (Auto) Not Reportable Lymph # (Auto) Not Reportable [place] # (Auto) Not Reportable Baso # (Auto) Not Reportable Total Counted 100 Seg Neutrophils % 66.0 Band Neutrophils % 4.0 Lymphocytes % (Manual) 24.0 L Monocytes % (Manual) 3.0 Eosinophils % (Manual) 2.0 Metamyelocytes % 1.0 H Neutrophils # (Manual) 7560 H RBC Morphology Normal morphology Sodium 126 L Potassium 3.9 Chloride 91 L Carbon Dioxide 32 BUN 13 Creatinine 0.67 Estimated GFR > 60.0 BUN/Creatinine Ratio 19.4 Glucose 173 H Calcium 8.5 Total Bilirubin 0.7 AST 39 H ALT 20 Alkaline Phosphatase 108 Total Protein 6.4 Albumin 3.2 L Globulin 3.2 Albumin/Globulin Ratio 1.0 [facility], [facility] Medical History Diabetes Hyperlipidemia Hypertension Surgical History H/O foot surgery History of cholecystectomy Family History Mother Diabetes mellitus Father Diabetes mellitus Other Hypertension Social History household members: spouse Smoking Status: Never smoker alcohol intake: current Assessment & Plan Assessment & Plan narrative: Ms. De Dios is a 61W with hospitalized recently for MSSA bacteremia and osteomyelitis who presents with worsening back pain. 1. Back pain, acute -etiology uncertain, but likely musculoskeletal and or constipation in nature after extensive imaging. -had recent MRI with multiple findings including question of chronic changes vs very early discitis, along with multiple disc disease and stenosis -repeat MRI showing highly unlikely to be discitis -continue pain meds, gabapentin, flexeril. Started on aggressive laxitive therapy, last BM was 5 days ago. -PT consult 2. MSSA bacteremia with osteomyelitis and left 1st toe postoperative infection -continue IV cefazolin. Patient's 09/15 blood cultures were positive but after 4 days. PICC line was placed on 09/17 but possibly was still bacteremic. -follow up repeated blood cultures from 09/18 and 09/19 -will need 6 weeks IV antibiotic and referal to ID clinic as outpatient -pending workup may need possible KATHY if she remains bacteremic. -orthopedic surgery would like to follow after discussions this morning, consult order placed. 3. Type 2 DM -insulin sliding scale 4. HTN -continue home meds 5. Obesity -BMI 33.5 -risk factor for wound healing CODE: Full Proxy: Jerod De Dios, I have utilized all available immediate resources to reconcile the patient's home medications. Time Spent With Patient Critical Care time: I spent a total of [] minutes of critical care time on this patient's care today; this time is exclusive of procedural time. Quality VTE Deep Vein Thrombosis/Pulmonary Embolism Present on Admission: No MIPS - Admit I confirm the patient?s Advance Care Plan is present, Code status is documented, Surrogate decision maker is in patient?s record [If Yes, STOP here]: Yes
[2021-09-21] VITALS: BP 148/66; PULSE 96; RESP 18; TEMP 37; O2SAT 96
[2021-09-21 04:00] VITALS: BP 151/67; PULSE 90; RESP 18; TEMP 37.4; O2SAT 92
[2021-09-21 05:17] LABS: Add Manual Diff / Slide Review NO; Basophils Absolute Auto 0 /uL (0-100); Basophils Percent Auto 0.2 % (0-2); Eosinophils Absolute Auto 200 /uL (0-450); Eosinophils Percent Auto 1.5 % (2-4); Hematocrit 28.1 % (36-46); Hemoglobin 9.5 g/dL (12.0-16.0); Lymphocytes Absolute Auto 1700 /uL (1100-4500); Lymphocytes Percent Auto 16.5 % (25-40); Mean Corpuscular HGB Conc 33.7 % (30-36); Mean Corpuscular Hemoglobin 29.9 PG (26-34); Mean Corpuscular Volume 88.7 fL (80-100); Monocytes Absolute Auto 700 /uL (0-900); Monocytes Percent Auto 7.1 % (3-14); Neutrophils Absolute Auto 7700 /uL (1500-7000); Neutrophils Percent Auto 74.7 % (50-75); Platelet Count 407 X10^3/uL (150-400); Red Blood Cell Count 3.17 X10^6/uL (4.0-5.2); Red Cell Distribution Width 14.3 % (11.6-14.8); White Blood Cell Count 10.4 X10^3/uL (4.5-11.0)
[2021-09-21 05:23] LABS: Alanine Aminotransferase 16 IU/L (<35); Alkaline Phosphatase 88 U/L (38-126); Aspartate Aminotransferase 36 IU/L (14-36); BUN Creatinine Ratio 18.1 (6-22); Bilirubin Total 0.5 mg/dL (0.2-1.3); Blood Urea Nitrogen 13 mg/dL (7-17); Calcium 8.7 mg/dL (8.4-10.2); Carbon Dioxide 30 mmol/L (22-32); Chloride 97 mmol/L (98-107); Estimated Glomerular Filt Rate > 60.0 mL/min (>60); Glucose 139 mg/dL (80-110); HEMOLYSIS < 15 (0-50); Potassium 3.9 mmol/L (3.4-5.1); Sodium 130 mmol/L (137-145)
[2021-09-21] MEDS: CYCLOBENZAPRINE 10 MG TABLET PO (05:49)
[2021-09-21] MEDS: CEFAZOLIN 2 GM/20 ML SYRINGE IV ×2 (06:05→14:09)
[2021-09-21] MEDS: GABAPENTIN 300 MG CAPSULE PO ×2 (06:05→14:10)
[2021-09-21 07:00] VITALS: BP 154/74; PULSE 96; RESP 19; TEMP 36.8; O2SAT 94; O2SAT 99
[2021-09-21 09:06] VITALS: O2SAT 94
[2021-09-21] MEDS: SENNOSIDES 8.6 MG TABLET PO (09:36)
[2021-09-21] MEDS: DOCUSATE 100 MG CAPSULE 200 MG PO (09:36)
[2021-09-21] MEDS: ENOXAPARIN 40 MG/0.4 ML SYRINGE SUBCUT (09:36)
[2021-09-21] MEDS: SODIUM CHLORIDE 0.9% FLUSH 10 ML IV (09:37)
[2021-09-21 11:00] VITALS: BP 161/80; PULSE 96; RESP 22; TEMP 36.6; O2SAT 99
--- NOTE | 2021-09-21 11:50 | PT-IP ANOTE ---
Pt sleeping in bed when arrived, in room. Pt and stated wanted to hold PT this am, ortho assessment coming for further assessment, requested wait until afternoon. LUMBER SALES SUPERVISOR unable to see pt, will return in afternoon for further mobility assessment progress including CGT.
--- NOTE | 2021-09-21 13:15 | P.PN_ITS ---
Subjective Subjective Date Patient Seen: 09/21/21 Time Patient Seen: 13:18 Interval history: Patient is complaining of [id number] back pain, resolving.? She denies any bowel or bladder changes.? No saddle anesthesia.? No fevers, chills, night sweats.? She was able to get up with physical therapy today.? A repeat MRI scan shows low likelihood of diskitis. Patient underwent a left big toe fusion with Dr. Mckinley on 08/23/2021.? She was readmitted on 09/13/2021 for left toe cellulitis.? Dr. Yang did a left toe I&D on 09/13.? The patient was readmitted again on 09/18 for diskitis/intractable low back pain.? Patient notes she is not having any pain in her left toe, she has baseline peripheral neuropathy and does not have sensation.? She does note an increase in drainage. She reports no changes in her toes since yesterday. Exam Vital Signs (past 8 hours): - 09/21/21 07:00 09/21/21 09:06 09/21/21 11:00 Temperature 98.3 F 97.8 F Pulse Rate 96 H 96 H Respiratory Rate 19 22 Blood Pressure 154/74 H 161/80 H Pulse Oximetry 99 94 99 Oxygen Delivery Method Room Air Oxygen Flow Rate 0 Narrative Exam Narrative: 61yo female resting comfortably in bed, no acute distress. Left Big toe demonstrates packing in place, necrotic tissue, mild serous, somewhat cloudy drainage, no fluctuance. No surrounding erythema or edema.? Bilateral lower extremity:? Motor function is grossly intact, sensation is decreased bilaterally, calves are soft and nontender to palpation. Objective Labs Result Diagrams: 09/21/21 04:40 09/21/21 04:40 Labs: Laboratory Results - last 24 hr 09/21/21 09/21/21 04:40 04:40 WBC 10.4 RBC 3.17 L Hgb 9.5 L Hct 28.1 L MCV 88.7 MCH 29.9 MCHC 33.7 RDW 14.3 Plt Count 407 H Neut % (Auto) 74.7 Lymph % (Auto) 16.5 L [place] % (Auto) 7.1 Eos % (Auto) 1.5 L Baso % (Auto) 0.2 Neut # (Auto) 7700 H Lymph # (Auto) 1700 [place] # (Auto) 700 Eos # (Auto) 200 Baso # (Auto) 0 Sodium 130 L Potassium 3.9 Chloride 97 L Carbon Dioxide 30 BUN 13 Creatinine 0.72 Estimated GFR > 60.0 BUN/Creatinine Ratio 18.1 Glucose 139 H Calcium 8.7 Total Bilirubin 0.5 AST 36 ALT 16 Alkaline Phosphatase 88 Total Protein 6.0 L Albumin 3.0 L Globulin 3.0 Albumin/Globulin Ratio 1.0 PFSH Medical History Diabetes Hyperlipidemia Hypertension Surgical History H/O foot surgery History of cholecystectomy Family History Mother Diabetes mellitus Father Diabetes mellitus Other Hypertension Social History household members: spouse Smoking Status: Never smoker alcohol intake: current Assessment & Plan Assessment & Plan narrative: 1. Back pain, acute, resolving -etiology uncertain, but likely musculoskeletal and or constipation in nature after extensive imaging. -had recent MRI with multiple findings including question of chronic changes vs very early discitis, along with multiple disc disease and stenosis; with repeat MRI showing highly unlikely to be discitis -continue pain meds, gabapentin, flexeril. Started on aggressive laxitive t herapy, last BM was 5 days ago. -continue with PT -reviewed with joe Duke to d/c regarding back pain and follow up outpatient 2. MSSA bacteremia with osteomyelitis and left 1st toe postoperative infection due to Staphylococcus aureus: -continue IV cefazolin and rifampin, per hospitalist, likely for 6 weeks. Patient's 09/15 blood cultures were positive but after 4 days. PICC line was placed on 09/17 but possibly was still bacteremic. -repeat blood cultures from 09/18 and 09/19 were negative, PICC line placed -will need 6 weeks IV antibiotic and referal to ID clinic as outpatient -dressing and packing changed today. -Dr. Montes, wound care, consulted the patient today and agrees with the plan. T he patient has been followed by Dr. Dennis for many months regarding her dorsal big toe wound. Dr. Montes feels this is an orthopedic determination for the likely additional surgery. Plan at this time is to leave screw in place. -follow up with Dr Mckinley as scheduled on 09/28/2021.? -daily dressing changes and daily home packing changes, was educated today. -WBAT on her left heel for ease of mobilization. -Reviewed with Dr. Hamlin, who agrees with the plan. Discussed with patient the pot ential for possible amputation in the future. Dr. Mckinley is returning to [facility] on 09/28/21, and patient already has an appointment with her on that day 3. Type 2 DM -insulin sliding scale 4. HTN -continue home meds 5. Obesity -BMI 33.5 -risk factor for wound healing Time Spent With Patient Critical Care time: I spent a total of [] minutes of critical care time on this patient's care today; this time is exclusive of procedural time. Quality VTE Deep Vein Thrombosis/Pulmonary Embolism Present on Admission: No
--- NOTE | 2021-09-21 13:22 | P.PN_ITS ---
Subjective Subjective Interval history: Patient reports that her back pain is much better today. She is aware that Dr. Mar at the wound care clinic is due to evaluate her left first toe today, per orthopedics recs, to assess viability. Exam Vital Signs (past 8 hours): - 09/21/21 07:00 09/21/21 09:06 09/21/21 11:00 Temperature 98.3 F 97.8 F Pulse Rate 96 H 96 H Respiratory Rate 19 22 Blood Pressure 154/74 H 161/80 H Pulse Oximetry 99 94 99 Oxygen Delivery Method Room Air Oxygen Flow Rate 0 Narrative Exam Narrative: Const Other: Patient laying in bed comfortably upon my entering the room, in no apparent acute distress. Eyes Other: No scleral icterus appreciated. Resp Other: Lungs clear to auscultation bilatereally. Cardio Other: RRR. S1 and S2 heart sounds normal, without extra heart sounds or murmurs. No peripheral edema noted. GI Other: Soft, non-distended, non-tender. Bowel sounds present. Skin Other: No grossly abnormal skin lesions noted. Extrem Other: Bandage over left first toe appreciated, without purulence drainage or surrounding erythema. Objective Labs Result Diagrams: 09/21/21 04:40 09/21/21 04:40 Labs: Laboratory Results - last 24 hr 09/21/21 09/21/21 04:40 04:40 WBC 10.4 RBC 3.17 L Hgb 9.5 L Hct 28.1 L MCV 88.7 MCH 29.9 MCHC 33.7 RDW 14.3 Plt Count 407 H Neut % (Auto) 74.7 Lymph % (Auto) 16.5 L [place] % (Auto) 7.1 Eos % (Auto) 1.5 L Baso % (Auto) 0.2 Neut # (Auto) 7700 H Lymph # (Auto) 1700 [place] # (Auto) 700 Eos # (Auto) 200 Baso # (Auto) 0 Sodium 130 L Potassium 3.9 Chloride 97 L Carbon Dioxide 30 BUN 13 Creatinine 0.72 Estimated GFR > 60.0 BUN/Creatinine Ratio 18.1 Glucose 139 H Calcium 8.7 Total Bilirubin 0.5 AST 36 ALT 16 Alkaline Phosphatase 88 Total Protein 6.0 L Albumin 3.0 L Globulin 3.0 Albumin/Globulin Ratio 1.0 [facility] Medical History Diabetes Hyperlipidemia Hypertension Surgical History H/O foot surgery History of cholecystectomy Family History Mother Diabetes mellitus Father Diabetes mellitus Other Hypertension Social History household members: spouse Smoking Status: Never smoker alcohol intake: current Assessment & Plan Assessment & Plan narrative: Ms. De Dios is a 61yo female hospitalized recently for MSSA bacteremia and osteomyelitis who presents with back pain. 1. Back pain, acute, likely spasm - Etiology is likely musculoskeletal, as MRI imaging has not shown signs of infection, impingement, etc. - Continue pain meds, gabapentin, Flexeril 2. MSSA bacteremia due to left 1st toe postoperative infection, with osteomyelitis - Continue IV cefazolin, as blood cultures here negative - Dr. Mar of wound care cleared patient for discharge, to continue IV cefazolin, with close follow-up with Dr. Mckinley on September 28, 2021 3. Type 2 diabetes mellitus - Insulin sliding scale inpatient 4. HTN - Continue home anti-hypertensive meds 5. Obesity, class 1 - BMI 33.5, and this is likely adversely affecting wound healing, along with DM II Time Spent With Patient Critical Care time: I spent a total of [] minutes of critical care time on this patient's care today; this time is exclusive of procedural time. Quality VTE Deep Vein Thrombosis/Pulmonary Embolism Present on Admission: No
--- NOTE | 2021-09-21 13:28 | PM.DS.1 ---
History of Present Illness History of Present Illness Chief complaint: Back Pain Narrative: Ms. De Dios is a 61W with PMH of DM, HTN, HL who presents back to the hospital for worsening back pain after just being discharged. She was admitted to the hospital with toe infection and underwent washout with orthopedic surgery. She was found to have MSSA bacteremia and started on cefazolin. She was found to have osteomyelitis in her toe and was planned to have 6 weeks antibiotics. She did develop back pain in the hospital and MRI of her lumbar spine was done which was read as likely chronic changes, but could not completely rule out early discitis, no abscess noted. She was also noted to have multiple disk disease and spinal stenosis. She had an ECHO that showed no vegetation. She was given pain medications and saw PT and her back pain was slowly improving and she was discharged home with plan to follow up with ID clinic and repeat back imaging as an outpatient to see if there were any changes to the MRI findings. Once home and after getting out of the car, she had worsening flare of her back pain that limited her mobility and was not controlled with the pain regimen she was sent home with so she was brought back to the hospital. She had no trauma. No fevers/chills. No icontinence, saddle anesthesia. No pain radiating to legs, no numbness, no weakness. In the ED workup was done, vitals noted for elevated blood pressure. Labs notable for WBC 12.1, hgb 10.1. Na 127, creatinine 0.81. She was given pain medications and admitted for further treatment. Written by admitting provider. Discharge Providers Provider Date of admission: 09/18/21 23:14 Discharge Date: 09/21/21 Primary care physician: Jennifer Lopez PA-C Consults: 09/18/21 23:10 Consult to Physical Therapy Evaluate & Treat Comment: Physician Instructions: Evaluate and Treat 09/19/21 12:19 Consult to Orthopedic Surgery Routine Comment: Consulting Provider: Phu Bucio Reason for consultation: post-operative wound infection Discharge provider: Atilio Johnson MD Summary Hospital Course Discharge Diagnosis: Ms. De Dios is a 61yo female hospitalized recently for MSSA bacteremia and osteomyelitis who presents with back pain. 1. Back pain, acute, likely spasm - Etiology is likely musculoskeletal, as MRI imaging has not shown signs of infection, impingement, etc. - Continue pain meds, gabapentin, Flexeril 2. MSSA bacteremia due to left 1st toe postoperative infection, with osteomyelitis - Continue IV cefazolin, as blood cultures here negative - Dr. Mar of wound care cleared patient for discharge, to continue IV cefazolin, with close follow-up with Dr. Mckinley on September 28, 2021 3. Type 2 diabetes mellitus - Insulin sliding scale inpatient 4. HTN - Continue home anti-hypertensive meds 5. Obesity, class 1 - BMI 33.5, and this is likely adversely affecting wound healing, along with DM II Exam Vital Signs (past 8 hours): - 09/21/21 07:00 09/21/21 09:06 09/21/21 11:00 Temperature 98.3 F 97.8 F Pulse Rate 96 H 96 H Respiratory Rate 19 22 Blood Pressure 154/74 H 161/80 H Pulse Oximetry 99 94 99 Oxygen Delivery Method Room Air Oxygen Flow Rate 0 Objective Labs Result Diagrams: 09/21/21 04:40 09/21/21 04:40 Labs: Laboratory Results - last 24 hr 09/21/21 09/21/21 04:40 04:40 WBC 10.4 RBC 3.17 L Hgb 9.5 L Hct 28.1 L MCV 88.7 MCH 29.9 MCHC 33.7 RDW 14.3 Plt Count 407 H Neut % (Auto) 74.7 Lymph % (Auto) 16.5 L [place] % (Auto) 7.1 Eos % (Auto) 1.5 L Baso % (Auto) 0.2 Neut # (Auto) 7700 H Lymph # (Auto) 1700 [place] # (Auto) 700 Eos # (Auto) 200 Baso # (Auto) 0 Sodium 130 L Potassium 3.9 Chloride 97 L Carbon Dioxide 30 BUN 13 Creatinine 0.72 Estimated GFR > 60.0 BUN/Creatinine Ratio 18.1 Glucose 139 H Calcium 8.7 Total Bilirubin 0.5 AST 36 ALT 16 Alkaline Phosphatase 88 Total Protein 6.0 L Albumin 3.0 L Globulin 3.0 Albumin/Globulin Ratio 1.0 PFSH Medical History Diabetes Hyperlipidemia Hypertension Surgical History H/O foot surgery History of cholecystectomy Family History Mother Diabetes mellitus Father Diabetes mellitus Other Hypertension Social History household members: spouse Smoking Status: Never smoker alcohol intake: current Discharge Assessment & Plan Assessment and Plan Assessment: Ms. De Dios is a 61yo female hospitalized recently for MSSA bacteremia and osteomyelitis who presents with back pain. 1. Back pain, acute, likely spasm - Etiology is likely musculoskeletal, as MRI imaging has not shown signs of infection, impingement, etc. - Continue pain meds, gabapentin, Flexeril 2. MSSA bacteremia due to left 1st toe postoperative infection, with osteomyelitis - Continue IV cefazolin, as blood cultures here negative - Dr. Mar of wound care cleared patient for discharge, to continue IV cefazolin, with close follow-up with Dr. Mckinley on September 28, 2021 3. Type 2 diabetes mellitus - Insulin sliding scale inpatient 4. HTN - Continue home anti-hypertensive meds 5. Obesity, class 1 - BMI 33.5, and this is likely adversely affecting wound healing, along with DM II Discharge Plan Discharge Plan Patient Disposition: Home Discharge orders & Medications Prescriptions: Continued losartan 50 mg tablet 100 mg PO DAILY 0RF pravastatin 20 mg tablet 20 mg PO DAILY 0RF hydrochlorothiazide 25 mg tablet 25 mg PO DAILY 0RF aspirin 81 mg tablet,delayed release (DR/EC) 81 mg PO QPM 0RF oxybutynin chloride 5 mg tablet extended release 24 hr 5 mg PO QPM 0RF metformin 500 mg tablet extended release 24 hr 2,000 mg PO QPM 0RF lidocaine 5 % Adhesive Patch,Medicated 1 ea topical DAILY Qty: 10 0RF gabapentin [Neurontin] 300 mg Capsule 300 mg PO TID Qty: 20 0RF cefazolin 1 gram recon soln 2 g IV Q8H Qty: 25 0RF oxycodone 5 mg tablet 5 mg PO Q6H PRN (Reason: pain) Qty: 20 0RF cyclobenzaprine 5 mg tablet 5 mg PO TID PRN (Reason: muscle spasm) Qty: 20 0RF Follow up/Referrals: Jennifer Lopez PA-C [Primary Care Provider] - Discharge Data Primary Care Provider: Jennifer Lopez Attending Provider: Evan Urena VTE Deep Vein Thrombosis/Pulmonary Embolism Present on Admission: No
[2021-09-21] MEDS: INSULIN LISPRO 100 UNIT/ML 3ML VIAL SUBCUT (14:17)
--- NOTE | 2021-09-21 14:50 | CM.DPNOTE ---
Faxed referral packet to [facility] per Joy and received conf. Courtney Mcarthur CM Assist.
[2021-09-21 15:00] VITALS: BP 168/77; PULSE 94; RESP 20; TEMP 35.9; O2SAT 100
--- NOTE | 2021-09-21 15:44 | PT.IPTN ---
Physical Therapy Treatment Note M2 PT-IP Current Condition Start: 09/19/21 09:09 Freq: NEEDED Status: Active Protocol: Document 09/21/21 15:04 SP (Rec: 09/21/21 17:55 SP [id number]) Physical Therapy Current Condition Current Condition Evaluation Date 09/19/21 Treatment Diagnosis acute back pain/spasm, L 1st MTP osteomyelitis s/p I&D; difficulty walking Onset Date 09/18/21 M3 PT-IP Subjective Start: 09/19/21 09:09 Freq: NEEDED Status: Active Protocol: Document 09/21/21 15:04 SP (Rec: 09/21/21 17:55 SP [id number]) Subjective Physical Therapy Visit Type Type Treatment Note Visit Start Time 15:04 Visit Stop Time 15:44 Total Visit Minutes 40 Notes Spouse present, completed caregiver training, provided physical assist requried during tx. DEVELOPMENTAL BEHAVIORAL PHYSICIAN provided 2nd person assist as needed with education. stated daughter is home to assist for a few weeks. Number of DEVELOPMENTAL BEHAVIORAL PHYSICIAN Visits 2 Physical Therapy Visit Comments Patient Comments Pt willing to mobilize with therapy. Patient Goals Return home with and daughter to assist her. Therapy Pain Assessment Pain When Pain Assessed During Mobility Pain Present Pain Present Pain Reported Location lower back Intensity 5 Scale Used Numeric (0 - 10) Description With Movement Pain Behaviors Facial Grimacing Pain Management Techniques Distraction,Modification of Treatment,Re-positioning M4 PT-IP Mobility and Gait Start: 09/19/21 09:09 Freq: NEEDED Status: Active Protocol: Document 09/21/21 15:04 SP (Rec: 09/21/21 17:55 SP [id number]) PT-Bed Mobility Assessment Rolling Type of Rolling Log Rolling,Roll to Right Level of Assist Minimal Assistance,1 Person Assistance Supine to Sit Supine to Sit Moderate Assistance,1 Person Assistance,Head of Bed Elevated Scooting Scooting to Edge of Bed Contact Guard Assistance PT-Transfer Assessment Sit to and From Stand Sit to and from Stand Minimal Assistance,1 Person Assistance,Use of Upper Extremities Equipment Transfer Assistive Device Gait Belt,Front Wheeled Walker Orthotic/Prosthetic Devices or Brace: Yes Transfers Transfer Destination Chair,Toilet Transfer Technique Pt ambulated w/ FWW Transfer Ability Level of Assist Contact Guard Assistance, Minimal Assistance,1 Person Assistance,Use of Upper Extremities Comments Mobility Comments DEVELOPMENTAL BEHAVIORAL PHYSICIAN provided education for LR technique to support TA facilitation and ideally lesson LBP. Pt LR L use of hand pull from, L SL> sit Mod A while pushing from bed trunk right, CGA scoot to EOB. Kyle donned camboot in sitting. Sit>stand Min A, gait to sink then bathroom approx 15 ft, CG- Min A cues for maintain heel only WB using fWW, SPT in bathroom, cued for use grab bar slow descent CGA - Min A. Suggested grab bar for safety toileting, will get. Sit>stand Min A w/ Grab bar. CGA via DEVELOPMENTAL BEHAVIORAL PHYSICIAN, assisted with pericare in standing, unableto successfully in sitting after voided. Pt step to patterning to chair CGA- 5%A for stability using fWW, min cues for stagger step LLE out front to maintain heel only WB. CGA sit onto chair, cued for proper hand placement for safety. Pt had call light and all needs in reach. in room. DEVELOPMENTAL BEHAVIORAL PHYSICIAN discussed recommendation of BSC for night time use, bed rail, transfer bench for showering of which he stated can get, provided HO of DME locations in [place]. Pt is ok to return home with yulissa to assist her, HHPT for progress in strength andmobility, spoke with care mgt to add OT for further education on increase education/ independence with dressing, showers with pt and in agreement. Gait Assessment Gait Gait Assistance Required: Contact Guard Assist,1 Person Assist Distance (Feet) 15 Able to Maintain Weight Bearing Status No During Gait Assistive Devices Assistive Device Gait Belt,Front Wheeled Walker Orthotic/Prosthetic Devices or Brace: Yes Gait Deviations General Gait Pattern Antalgic,Decreased Stride Length,Decreased Feet Clearance,Flexed Trunk,Step-to Gait Factors Limiting Gait Function Factors Limiting Gait Function Decreased Activity Tolerance, Decreased Strength,Pain,Poor Balance,Poor Safety Awareness Comments Gait Comments Pt poor safety awareness, Mod cues for L heel WB in camboot out front step to patterning using FWW, upright posture over RLE. Stair Climbing Assessment Comments Stair Climbing Comments 1 small threshold approx 2 front and garage enterances but pt and state usually 2 person prop front wheel up on and able to lift pt onto to surface. Pt unable to assess 1 small step mgt due to challenging maintaining PWB on LLE. PT-Balance Assessment Sitting Balance and Reactions Static Sitting Balance Ability Good Dynamic Sitting Balance Ability Fair Standing Balance and Reactions Static Standing Balance Ability Fair Dynamic Standing Balance Ability Fair Device Used FWW M5 PT-IP Objective Assessments Start: 09/19/21 09:09 Freq: NEEDED Status: Active Protocol: Document 09/19/21 12:55 AW (Rec: 09/19/21 13:23 AW [id number]) Orientation Orientation/Cognition Level of Alertness Alert Orientation Name,Day of Week,Place, Situation Language Function Ability No Deficits Noted Safety Awareness Decreased Safety Awareness Memory Description No Deficits Noted Gross Range of Motion Lower Extremity ROM Assessment Within Functional Limits Strength Lower Extremity Strength Assessment Bilaterally Impaired Comments Strength Comments RLE 3+/5; LLE 3-/5 Sensation Assessment Sensation Gross Sensation Right LE Impaired,Left LE Impaired Light Touch Impaired Proprioception (Position) Impaired M6 PT-IP Treatment Start: 09/19/21 09:09 Freq: NEEDED Status: Active Protocol: Document 09/21/21 15:04 SP (Rec: 09/21/21 17:55 SP [id number]) Physical Therapy Treatment Education Education Provided Weight Bearing Status,Safety Other Treatments Other Treatment Performed Pt required Max> Mod cues for maintaining heel PWB only LLE with cam boot step to patterning. IMproved corrections with cues. M7 PT-IP Assessment and Plan Start: 09/19/21 09:09 Freq: NEEDED Status: Active Protocol: Document 09/21/21 15:04 SP (Rec: 09/21/21 17:55 SP [id number]) PT Summary Assessment and Plan Potential Rehabilitation Potential Fair Status of Condition at Evaluation Evolving Summary Impairments Pain,Strength,Balance, Sensation,Bed Mobility, Transfers,Gait,Activity Tolerance Progress Towards Goals Progressing Toward Goals,Slow Progress due to Pain,Slow Progress due to Activity Tolerance Assessment Summary Pt limited by LBP, min cues for maintaining PWB on LLE heel with cam boot conned during gait using fWW. Mod A for bed mobility, Min for sit< >Stand w/ FWW and CGA-5%A for short bout of ambulation usign fWW which was able to assist when medically cleared . DEVELOPMENTAL BEHAVIORAL PHYSICIAN recommending HHPT for functional mobility independence and recommending OT at this time for further education with dressing and showers increase independence with adaptive equipment. Goals Bed Mobility Goal Standby Assistance Transfer Goal Contact Guard Assistance,Front Wheeled Walker Gait Goal Contact Guard Assistance,Front Wheel Walker Gait Distance 25 Days to Meet Goals 10 Frequency of Treatment Frequency Of Treatment Once a Day Treatment Plan Physical Therapy Treatment Plan Bed Mobility Training,Transfer Training,Gait Training, Therapeutic Exercise,Balance Retraining,Post Op Education, Discharge Planning Other Recommendations and Next Treatment review log roll bed mobility; Focus transfers and gait with FWW as able; if going home, will need to coordinate further caregiver training. Weight Bearing Status Weight Bearing Status Partial Weight Bearing Allowed Weight Bearing Amount (enter % PWB LLE on heel only, cam boot or #) (%) donned. Recommendations To Nursing Amount of Assist Needed 1 Person Assist Discharge Recommendations PT Discharge Recommendations Home with 24/7 Assist Available,Home Health Equipment Needed for Home Before DEVELOPMENTAL BEHAVIORAL PHYSICIAN recommending BSC, bed rail Discharge , grab bar, transfer bench all of which stated can get. Transportation Needs at Discharge Private Vehicle
[2021-09-21] MEDS: ACETAMINOPHEN 325 MG TABLET 650 MG PO (16:17)
--- NOTE | 2021-09-21 17:56 | PC.NURSE ---
Addendum entered by Mary Rodriguez R.N. 09/21/21 18:05: Medication instructions for home medications faxed to [facility]. Original Note: Pt A&Ox3. VSS, afebrile on RA. She denies pain to L great toe due to neuropathy but reports back pain 5-7 this shift. She requests tylenol only as pain medication due to her recent experience with constipation. MD Mar at bedside today discussing wound care and plan of care with ortho and hospitalist. Pt with PICC line in place which flushes and draws well. Site is C/D/I. Patient's at bedside is supportive and states he feels comfortable administering IV antibiotics at home with [facility]. Patient is given afternoon IV antibiotic here. Her dressing is changed by ortho and it is C/D/I. LABORER MINE at beside providing education and childcare provider training with and patient for transfers while wearing boot to L foot. Pt and express understanding of PICC site care, medications, wound care dressings, medication, s/sx of worsening symptoms and follow up care. She is escorted via w/ch to private vehicle with this afternoon for discharge home with all of her belongings.
--- NOTE | 2021-09-22 09:01 | CM.DPNOTE ---
DC Note Late Entry According to Dr Johnson; Ortho was consulted yesterday and Ortho RADHA Abdullahi had done joint visit w/Dr Montes/Wound care at patient's bedside It had been decided that patient was okay to return home w/spouse to assist w/dressing changes until f/u w/Dr Mckinley on September 28 to discuss next steps in medical POC. Patient/spouse had gotten additional teaching on dressing changes and patient discharged with wound care dressing change supplies Patient was still complaining of pain from back spasms however PT had cleared for home and patient/spouse were agreeable to this LM w/ Carlos A at [facility]- patient returning home. Plan: Patient discharged 09.21.21, home w/assist from spouse and [facility] RN/PT/OT (LOGISTICIAN recommended addition of OT services at home) According to rep at [facility]: HH nursing delayed until middle of next week for [place]. This TUBER MACHINE OPERATOR HELPER could not secure an alternative HH option; Updated Denae Abdullahi and she felt patient/spouse were okay doing dressing changes independently Joy Kamara TUBER MACHINE OPERATOR HELPER
== END 2021-09-21 16:40 | disposition home or self-care (01) ==
LOC: ED 22:15 → AC 23:14
PROVIDERS: Internal Medicine; Admitting Provider Internal Medicine; Emergency Provider Emergency Medicine; Family Provider Physician Assistant; PCP Physician Assistant; Visit Provider Internal Medicine
DX: M54.50 Low back pain, unspecified (principal); R78.81 Bacteremia; B95.61 Methicillin susceptible Staphylococcus aureus infection as the cause of diseases classified elsewhere; M86.8X7 Other osteomyelitis, ankle and foot; E11.9 Type 2 diabetes mellitus without complications; Z79.84 Long term (current) use of oral hypoglycemic drugs; I10 Essential (primary) hypertension; E78.5 Hyperlipidemia, unspecified; E66.9 Obesity, unspecified; Z68.33 Body mass index [BMI] 33.0-33.9, adult; Z20.822 Contact with and (suspected) exposure to COVID-19
CPT/HCPCS: 36415; 72158; 80048; 80053; 82962; 85007; 85025; 85651; 86140; 87040; 87635; 94760; 96372; 96374; 96375; 97116; 97162; 97530; 99283; 99284; C9803; G0378; A9579; J0690; J1170; J1650; J1815

== ENCOUNTER 2021-09-30 11:10 | Day surgery (SDC) | payer BC, OTHER, SELFPAY ==
[2021-09-29 07:30] VITALS: BMI 33.9
--- NOTE | 2021-09-30 | PATH_ITS ---
[facility] Accession Number: [id number] . 01 Material submitted: . toe - LEFT GREAT TOE . 01 Diagnosis: Left Great Toe, Amputation: Cutaneous ulcer with underlying dense mixed inflammation, necrosis, and fibrosis. Bone with interspersed marrow fibrosis, evidence of remodeling, and scattered plasma cells with focal neutrophils, suggestive of acute on chronic osteomyelitis. Skin, subcutaneous tissue, and en face bone margin appear viable. No evidence of malignancy identified in sections examined. . Note: Clinical and radiographic correlation is recommended. MRV 10/10/2021 1139 Local . 01 Electronically signed: . Tomas Callahan MD, Dermatopathologist NPI- [id number] . 01 Gross description: . The specimen is received in formalin, with the designation left great toe, is the disarticulated tip of the first toe (4.6 x 3.7 x 2.7 cm). There is an ulcerated area (6.5 x 3.4 cm) involving the skin surface of the tip and dorsum of the toe, which is less than 0.1 cm from the skin and soft tissue resection margin, and grossly involves the underlying bone. There is grossly viable tissue at the skin and soft tissue resection margin, and the uninvolved skin is grossly unremarkable. The specimen is representatively submitted as follows, after decalcification: . A1: Perpendicular account services representative sections of closest approach of ulcer to skin and soft tissue resection margin. A2: Ulcer to underlying bone (decalcified). (AM:[id number]) A3: Proximal articular aspect, shaved and submitted en face (decalcified). (AM:[id number]) /MRV 10/06/2021 1155 Local . 01 Pathologist provided ICD-10: M86.9 . 01 CPT . 692409, [id number] Specimen Comment: A courtesy copy of this report has been sent to [phone] Performed at: 01 [facility] [address] [place] [address] [id number] MD Haroon Mendez MD Phone: [phone]
[2021-09-30 11:34] VITALS: BP 171/79; PULSE 101; RESP 16; TEMP 36.4; O2SAT 99; BMI 32.1
[2021-09-30 12:05] LABS: COVID19 -Nasal RAPID Negative (Negative)
--- NOTE | 2021-09-30 13:40 | PM.PREOP ---
Pre-operative Note COVID-19 COVID-19 status: Negative Result date/Date tested (Pos, Neg/Pending): 09/30/21 Interval Note History & Physical reviewed/Exam performed by Physician: Yes Changes to H&P: No
[2021-09-30] MEDS: ACETAMINOPHEN 325 MG TABLET 975 MG PO (13:49)
[2021-09-30] MEDS: LACTATED RINGERS 1,000 ML 42 ML IV (13:50)
[2021-09-30] MEDS: CEFAZOLIN 2 GM/20 ML SYRINGE IV (14:38)
--- NOTE | 2021-09-30 14:57 | SUR.OPER ---
Supine on padded OR bed, head on pillow, arms secured on padded arm boards at <90 degrees abduction, legs uncrossed, safety belt at thigh, tape over blanket over lower legs.
[2021-09-30] MEDS: BUPIVACAINE 0.25% (PF) 30 ML, EPINEPHrine 0.15 MG INJ (15:22)
[2021-09-30 15:50] VITALS: BP 159/74; PULSE 98; RESP 15; TEMP 36.5; O2SAT 99
[2021-09-30 15:55] VITALS: BP 173/67; PULSE 96; RESP 16; O2SAT 100
[2021-09-30 16:00] VITALS: BP 147/107; PULSE 91; RESP 12; O2SAT 99
--- NOTE | 2021-09-30 16:02 | PM.OP.1 ---
Operative Date/Time/Diagnoses Date of procedure: 09/30/21 Time of procedure: 15:00 Pre-op diagnosis: Deep infection left great toe surgical site Osteomyelitis Post-op diagnosis: same Procedure & Clinicians Procedure: Amputation left great toe CPT 78611 left TA Same procedure as scheduled: Yes Indications: Patient is a 61-year-old female had a history of a great toe deformity and recurrent ulcerations she eventually had these heal and underwent a left great toe IP joint fusion to correct the rigid clawtoe deformity and reduce the risk of recurrent ulcerations. Intraoperative cultures were negative however 2 and half weeks postoperatively per the patient acutely developed infections in the left great toe that had previously been healing well. She stated everything changed over a Quick 24 hour. The toe became extremely swollen and drained purulence this was washed out [facility] by the on-call surgeon and Staph aureus was cultured. Patient was placed on IV antibiotics further surgeries and amputation were discussed with the patient and she is followed of with me. She has had ongoing necrosis of the dorsal tissue over her great toe involving the nail IP joint line and dorsal tissue along the proximal phalanx nearly to the MTP level. There is no ascending cellulitis or current sepsis. We discussed options for treatment including removal of hardware and ongoing wound care versus amputation. Amputation was indicated due to the level of soft tissue loss and desire for a more expeditious resolution of the infection and wound healing. The risks and benefits of the surgery were discussed with the patient including persistence of infection need for additional procedures further amputation and ongoing wound care for wound dehiscence. The risks and benefits of the procedure have been discussed with the patient given the opportunity to ask questions. The risks of surgery include but are not limited to infection, malunion, nonunion, persistence of pain, damage to nerves and blood vessels, posttraumatic arthritis, DVT, PE, cardiopulmonary complications and . The patient expressed a thorough understanding of the risks and benefits of surgery and has elected to proceed. Consent was signed. She is on scheduled IV Ancef based on her previous cultures and this is managed by Dr. Nadine Henley as scheduled Infectious Disease. The plan is that she will continue on this for at least a few weeks during wound healing After the amputation. Surgeon: Dori Mckinley Click Yes if Unassisted: Yes Anesthesia Type: General and Local Operative Notes Findings: Extensive dorsal necrosis of the left great toe with a tissue loss involving the nail and dorsal tissues from the nail to the proximal phalanx base. There is viable tissue from the IP joint crease volarly to the MTP. The nail is loose and easily removed exposing the screw and purulence. There is purulence demonstrated in the necrotic tissue to the level of the proximal phalanx base No purulence or necrotic tissue demonstrated at the level of the MTP disarticulation Closure Type: primary Specimen(s): other (Left great toe to pathology) Estimated Blood Loss (mL): 15 Blood products transfused: none Tourniquet time (min): 14 Procedure in detail: Patient was seen in the preoperative area the site of surgery marked informed consent confirmed. She was brought back to the operating room by the anesthesia team positioned supine on operative table. General anesthetic was administered. Left lower extremity was examined. A nonsterile calf tourniquet was placed. There was noted necrosis of the dorsal skin over the left great toe obvious looseness of the nail and easily visualized exposed hardware that has displaced and eroded through the distal phalanx bone. Purulence was demonstrated. The wound was prepped with the Betadine on the open wound and chlorhexidine on the leg. The leg was draped in the standard sterile fashion. A formal time-out procedure was performed confirming the patient's side and site of surgery administration of appropriate antibiotics. All were in agreement. Attention turned to the left great toe the level of the MTP joint was marked out an amputation flaps drawn on the skin. These were kept purposefully long as possible plantar to create a viable flap. The toe was then amputated through the MTP joint and the left great toe was sent for specimen. Surgical site was then thoroughly irrigated in and once no devitalized tissue was left the gloves and drapes were changed and instruments were changed to clean instruments. The tourniquet was released and hemostasis achieved. The MTP head demonstrated moderate central cartilage loss but there was no purulence for evidence of necrosis at this level. The skin flaps were healthy and bleeding. The wound flaps were fashion in order to provide appropriate coverage over the MTP head and no further shortening was necessary. Deep tissues were approximated with 2-0 PDS suture subcutaneous several 4-0 Monocryl were placed and the skin was closed with 3-0 nylon suture. 10 cc of 0.25% Marcaine with epinephrine was infiltrated as a local anesthetic block. Final intraoperative C-arm x-ray confirmed appropriate knee amputation disarticulation through the left great toe MTP joint. Dressing was placed with Xeroform gauze Jude wrap and an Sarkis wrap. The patient was woken from anesthesia and taken to recovery room in good condition. There no immediate complications from this procedure. All counts were correct Complications: none Post-operative Condition: stable Disposition: PACU Plan for aftercare: Patient may heel or hindfoot weightbear in a boot or postoperative shoe. Elevate to help with swelling. Sutures remain in place 2-6 weeks based on healing. She will follow up in Orthopedic Clinic in 2 weeks for wound check. She will continue her scheduled IV antibiotics per schedule Infectious Disease.
[2021-09-30 16:10] VITALS: BP 164/77; PULSE 91; RESP 12; O2SAT 100
[2021-09-30 16:22] VITALS: BP 174/67; PULSE 80; RESP 20; TEMP 36.5; O2SAT 100
== END 2021-09-30 16:55 | disposition home or self-care (01) ==
PROVIDERS: Family Provider Physician Assistant; PCP Physician Assistant; Referring Provider Orthopaedic Surgery Foot and Ankle Surgery; Visit Provider Orthopaedic Surgery Foot and Ankle Surgery
PROC: (CPT 28820; principal; 2021-09-30 14:00)
DX: T81.42XA Infection following a procedure, deep incisional surgical site, initial encounter (principal); M86.9 Osteomyelitis, unspecified; E11.621 Type 2 diabetes mellitus with foot ulcer; Z79.84 Long term (current) use of oral hypoglycemic drugs; I10 Essential (primary) hypertension; D64.9 Anemia, unspecified; I27.20 Pulmonary hypertension, unspecified; Z20.822 Contact with and (suspected) exposure to COVID-19
CPT/HCPCS: 28820; 87635; C9803; J0171; J0690; J2250; J2405; J2704; J3010

== ENCOUNTER → 2021-11-22 12:40 | Outpatient (CLI) | payer BC, SELFPAY ==
--- NOTE | 2021-11-22 12:42 | DI.MRI.S_ITS ---
PROCEDURE: MR LUMBAR SPINE WO/W CON INDICATIONS: Discitis, unspecified, lumbar region TECHNIQUE: Noncontrast sagittal T1 spin echo and T2 fast spin echo, sagittal STIR, axial T1 and T2 fast spin echo through the lumbar spine. In cases with scoliosis, additional coronal T2 fast spin echo may be performed. Additional oblique axial T2 weighted images were obtained through the lower lumbar spine. After the administration of contrast, sagittal and axial T1 spin echo with fat saturation through the lumbar spine. COMPARISON: [facility], MR, MR LUMBAR SPINE WO/W CON, 09/19/2021, 10:31. [facility], MR, MR LUMBAR SPINE WO/W CON, 09/14/2021, 14:52. [facility], MR, MR LUMBAR SPINE WITH/WITHOUT CONTRAST, 11/04/2021, 15:09. FINDINGS: Image quality: Excellent. Alignment and curvature: There is mild retrolisthesis seen at L1-L2, L2-L3, and L3-L4. Mild anterolisthesis is seen at L4-L5. Marrow: Marrow is of normal overall signal. No acute vertebral body compression fractures. Spinal cord: Conus medullaris terminates at the L1 level. Visualized spinal cord demonstrates normal signal, without suspicious enhancement. Paraspinous soft tissues: [id number] generalized enhancement can be seen within the soft tissue surrounding the L1-L2 level, left worse than right. The degree of surrounding soft tissue enhancement appears improved compared to 11/04/2021 examination. At the L1-L2 level, there is moderate to severe disc space narrowing, with abnormal enhancement seen involving the L1 and L2 vertebral bodies. The previously seen fluid and enhancement along the disc level itself is improved. The degree of bone marrow enhancement of the vertebral bodies themselves is improved. Mild enhancement can be seen along the posterior aspect of the vertebral bodies, anterior to thecal sac, as on series 10 image 11. This is also clearly improved compared to prior examination. Multiple levels of degenerative change are seen, which are considered to be similar to the prior. IMPRESSION: Clearly improved discitis/osteomyelitis at the L1-L2 level compared to prior MRI. Also interval improved abnormal epidural enhancement. The enhancement of the surrounding soft tissues is also improved compared to the prior. Dictated by: Elder Mehta M.D. on 11/22/2021 at 13:43 Approved by: Elder Mehta M.D. on 11/22/2021 at 13:48
== END ==
PROVIDERS: Family Provider Physician Assistant; PCP Physician Assistant; Referring Provider Internal Medicine Infectious Disease; Visit Provider Internal Medicine Infectious Disease
DX: M46.46 Discitis, unspecified, lumbar region (principal); M86.9 Osteomyelitis, unspecified
CPT/HCPCS: 72158

== ENCOUNTER → 2021-12-30 08:08 | Outpatient (CLI) | payer BC, OTHER, SELFPAY ==
--- NOTE | 2021-12-30 | DI.MRI.S_ITS ---
PROCEDURE: MR LUMBAR SPINE WO/W CON INDICATIONS: Discitis, unspecified, lumbar region TECHNIQUE: Noncontrast sagittal T1 spin echo and T2 fast spin echo, sagittal STIR, axial T1 and T2 fast spin echo through the lumbar spine. In cases with scoliosis, additional coronal T2 fast spin echo may be performed. After the administration of contrast, sagittal and axial T1 spin echo with fat saturation through the lumbar spine. COMPARISON: [facility], , MR LUMBAR SPINE WO/W CON, 11/22/2021, 12:48. FINDINGS: Image quality: Excellent. Alignment and curvature: Mild degenerative retrolisthesis at L1-2 and L2-3 Marrow: Persistent marrow edema present at L1 and L2 with enhancement, similar to the prior Spinal cord: Conus medullaris terminates at the L1 level. Visualized spinal cord demonstrates normal signal, without suspicious enhancement. Paraspinous soft tissues: Persistent but improving paraspinal enhancement and edema noted at the L1-2 level without evidence of abscess. At L1-2, there is persistent fluid in disc space with edema and enhancement involving the subjacent vertebral bodies consistent with improving discitis osteomyelitis. No evidence of abscess. There is persistent mild epidural enhancement as well. No evidence of epidural abscess. At L2-3, degenerative disc space narrowing and arthropathy results in moderate central and severe right foraminal stenosis. Moderate left foraminal stenosis. At L4-5, disc bulge and hypertrophic facet joints result in severe central stenosis. Mild left and no right foraminal stenosis. IMPRESSION: 1. Improving L1-2 discitis osteomyelitis without abscess 2. Multilevel degenerative disc disease and arthropathy associated with varying central and foraminal stenosis includes severe L4-5 central stenosis, similar to the prior exam Approved by: Andrew Thomas M.D. on 12/30/2021 at 11:15
== END ==
PROVIDERS: Family Provider Physician Assistant; PCP Physician Assistant; Referring Provider Internal Medicine Infectious Disease; Visit Provider Internal Medicine Infectious Disease
DX: M46.46 Discitis, unspecified, lumbar region (principal); M46.26 Osteomyelitis of vertebra, lumbar region; M47.816 Spondylosis without myelopathy or radiculopathy, lumbar region; M48.061 Spinal stenosis, lumbar region without neurogenic claudication; M86.272 Subacute osteomyelitis, left ankle and foot
CPT/HCPCS: 72158; A9579

== ENCOUNTER → 2022-01-26 15:15 | Outpatient (CLI) | payer BC, OTHER, SELFPAY ==
--- NOTE | 2022-01-26 | DI.MG.S_ITS ---
BILATERAL DIGITAL SCREENING MAMMOGRAM 3D/2D WITH CAD: 01/26/2022 CLINICAL: Routine screening. Comparison is made to exams dated: 07/10/2020 mammogram, 03/20/2019 mammogram, and 03/05/2018 mammogram - [facility]. The tissue of both breasts is predominantly fatty. Current study was also evaluated with a Computer Aided Detection (CAD) system. No significant masses, calcifications, or other findings are seen in either breast. There has been no significant interval change. IMPRESSION: NEGATIVE There is no mammographic evidence of malignancy. A 1 year screening mammogram is recommended. Based on the Tyrer Cuzick model (a risk assessment model) the patient's lifetime risk is 4.2% and her 10 year risk is 1.9%. According to the ACR, ACS, and NCCN guidelines, an annual breast MRI exam along with mammogram is recommended if the patient's lifetime risk is 20% or greater. This exam was interpreted at Station ID: [id number]. NOTE: For mammograms, a report in lay terms will be sent to the patient. Approximately 15% of breast malignancies will not be visualized mammographically. In the management of a palpable breast mass, a negative mammogram must not discourage biopsy of a clinically suspicious lesion. Electronically Signed By: Honorio quinn/jeyson:01/26/2022 17:19:16 letter sent: Normal Exam ACR BI-RADS Category 1: Negative 3341F
== END ==
PROVIDERS: Family Provider Physician Assistant; PCP Family Medicine; Referring Provider Family Medicine; Visit Provider Family Medicine
DX: Z12.31 Encounter for screening mammogram for malignant neoplasm of breast (principal)
CPT/HCPCS: 77063; 77067

== ENCOUNTER → 2022-03-07 07:30 | Outpatient (CLI) | payer BC, OTHER, SELFPAY ==
--- NOTE | 2022-03-07 07:31 | DI.NM.S_ITS ---
PROCEDURE: NM UPTAKE AND SCAN RADIOPHARMACEUTICAL: 396 ?Ci I-123 sodium iodide by mouth. INDICATIONS: Thyrotoxicosis, unspecified without thyrotoxic cri TECHNIQUE: I-123 sodium iodide was administered orally. Anterior neck images were obtained, and iodine uptake by the thyroid gland calculated using fireboat operator's software. COMPARISON: None. FINDINGS: Morphology: The thyroid gland has normal morphology and uniform activity. No 'cold' or 'hot' thyroid nodules are identified. Uptake: 6 hour thyroid uptake is 5.7% ; normal ranges are from 6-18%. 24 hour thyroid uptake is 14.9% ; normal ranges are from 10-30%. IMPRESSION: 6 hour uptake is borderline low as above. 24 uptake is within normal limits. Dictated by: Narcisa Navarrete M.D. on 03/08/2022 at 14:47 Approved by: Narcisa Navarrete M.D. on 03/08/2022 at 14:49
== END ==
PROVIDERS: Family Provider Physician Assistant; PCP Family Medicine; Referring Provider Family Medicine; Visit Provider Family Medicine
DX: E05.90 Thyrotoxicosis, unspecified without thyrotoxic crisis or storm (principal)
CPT/HCPCS: 78014; A9516

== ENCOUNTER → 2022-05-03 09:34 | Outpatient (CLI) | payer BC, OTHER, SELFPAY ==
[2022-05-03 12:05] LABS: COVID19 -Nasal RAPID Negative (Negative)
== END ==
PROVIDERS: Family Provider Physician Assistant; PCP Family Medicine; Visit Provider Surgery
DX: Z20.822 Contact with and (suspected) exposure to COVID-19 (principal); Z01.812 Encounter for preprocedural laboratory examination
CPT/HCPCS: 87635; C9803

== ENCOUNTER 2022-05-04 09:50 | Day surgery (SDC) | payer BC, OTHER, SELFPAY ==
--- NOTE | 2022-05-04 | PATH_ITS ---
[facility] Accession Number: [id number] . 01 Material submitted: . colon - CECUM POLYP . 01 Diagnosis: Cecal Polyp, Biopsy: Tubular adenoma. MRV 05/08/2022 1325 Local . 01 Electronically signed: . Raffaele Hebert MD, PhD, Pathologist NPI- [id number] . 01 Gross description: . CECUM POLYP: Received in formalin are 3 fragment(s) of colon, soft tissue measuring 0.8 x 0.5 x 0.1 cm to 0.2 x 0.1 x 0.1 cm submitted entirely in 1 cassette(s) /CPE 05/06/2022 1032 Local . 01 Pathologist provided ICD-10: D12.0 . 01 CPT . 756484 Specimen Comment: A courtesy copy of this report has been sent to [phone] Performed at: 01 [facility] [address] [place] [address], [place], [place] [id number] MD Haroon Mendez MD Phone: [phone]
[2022-05-04 10:05] VITALS: BP 186/86; PULSE 114; RESP 16; TEMP 36.3; O2SAT 100; BMI 31.1
[2022-05-04] MEDS: LACTATED RINGERS 1,000 ML 42 ML IV (10:20)
--- NOTE | 2022-05-04 10:47 | PM.HP.1 ---
History of Present Illness History of Present Illness Date Patient Seen: 05/04/22 Time Patient Seen: 10:48 [place] [facility] [place]: Lina is a 62-year-old woman who is here for colonoscopy. Her last 1 was in 2016 and no polyps were found. She had a grandmother with colon cancer. Patient History Medical History (Updated 05/04/22 @ 10:48 by Ok Escalona MD) Diabetes History of echocardiogram (09/15/21) Hyperlipidemia Hypertension Surgical History (Updated 09/29/21 @ 07:44 by Maricruz Stoll RN) H/O foot surgery History of cholecystectomy (10/22/20) History of orthopedic surgery (09/13/21) Hx of hammer toe correction (08/23/21) Family & Social History Family History Mother Diabetes mellitus Father Diabetes mellitus Other Hypertension Social History: household members spouse Tobacco & Substance use: Smoking Status Never smoker alcohol intake current alcohol intake frequency a few times a week Substance Use Type does not use Meds Home Medications and Allergies Home Medications Medication Instructions Recorded Confirmed Type hydrochlorothiazide 25 mg tablet 25 mg PO DAILY 10/21/20 09/30/21 History losartan 50 mg tablet 100 mg PO DAILY 10/21/20 09/30/21 History pravastatin 20 mg tablet 20 mg PO DAILY 10/21/20 09/30/21 History aspirin 81 mg tablet,delayed 81 mg PO QPM 09/13/21 05/04/22 History release metformin 500 mg tablet,extended 2,000 mg PO QPM 09/13/21 09/30/21 History release 24 hr oxybutynin chloride 5 mg 5 mg PO QPM 09/13/21 09/30/21 History tablet,extended release 24 hr cefazolin 1 gram solution for 2 g IV Q8H #25 ea 09/17/21 09/29/21 Rx injection cyclobenzaprine 5 mg tablet 5 mg PO TID PRN muscle spasm #20 09/17/21 09/30/21 Rx tabs gabapentin 300 mg capsule 300 mg PO TID #20 caps 09/17/21 09/30/21 Rx (Neurontin) lidocaine 5 % topical patch 1 ea topical DAILY #10 ea 09/17/21 09/30/21 Rx oxycodone 5 mg tablet 5 mg PO Q4H PRN pain #20 tabs 09/30/21 Rx sodium sul 1.479 gram-potas ch See Rx Instructions PO PER PKG DIR 04/25/22 Rx 0.188 gram-magnes sul 0.225 gram #24 tabs tablet (Sutab) Allergies Allergy/AdvReac Type Severity Reaction Status Date / Time Sulfa (Sulfonamide Allergy Mild RASH Verified 05/04/22 10:00 Antibiotics) [SULFA (SULFONAMIDE ANTIBIOTICS)] Exam Vital Signs (past 8 hours): - 05/04/22 10:05 Temperature 97.4 F L Pulse Rate 114 H Respiratory Rate 16 Blood Pressure 186/86 H Pulse Oximetry 100 Oxygen Delivery Method Room Air Oxygen Delivery Method Room Air Const General: No acute distress Assessment & Plan Assessment and plan (1) Colon cancer screening: Status: Acute Plan 62-year-old woman here for colonoscopy. We reviewed the risks and benefits and she would like to proceed. Time Spent With Patient Critical Care time: I spent a total of [] minutes of critical care time on this patient's care today; this time is exclusive of procedural time.
--- NOTE | 2022-05-04 11:19 | PM.OP.COLON ---
Operative Date/Time/Diagnoses Date of procedure: 05/04/22 Time of procedure: 11:19 Pre-op diagnosis: Colon cancer screening Post-op diagnosis: same Procedure & Clinicians Study performed: Colonoscopy Same procedure as scheduled: Yes Surgeon: Ok Escalona Procedure Notes Procedure in detail: Surgeon: Ok Escalona MD Anesthesia: MAC by by Dr. Mcdonnell Procedure: The patient was brought to the endoscopy suite, placed in left lateral decubitus position. The patient was connected to monitoring devices. A time-out was performed. Sedation was administered. Once the patient was adequately sedated, a digital rectal exam was performed and was normal. The scope was then inserted and advanced to the cecum where the appendiceal orifice was identified and photographed. There was a 4 mm polyp in the cecum which was removed with a cold snare. The scope was then slowly withdrawn over greater than 6 minutes. The mucosa was thoroughly inspected. No other lesions were noted. The scope was retroflexed in the rectum. No abnormalities were noted. The scope was straightened and removed. The patient was awakened and brought to recovery. Scope withdrawal time: 8 minutes Sedation time: 23 minutes EBL: 5 mL Findings: 4 mm cecal polyp Post-procedure Recommendations: Will call with biopsy results Disposition: PACU
[2022-05-04 11:21] VITALS: BP 108/61; PULSE 75; RESP 15; TEMP 36.6; O2SAT 99
[2022-05-04 11:26] VITALS: BP 127/66; PULSE 78; RESP 14; O2SAT 100
[2022-05-04 11:31] VITALS: BP 114/74; PULSE 78; RESP 15; O2SAT 99
[2022-05-04 11:36] VITALS: BP 118/77; PULSE 82; RESP 18; TEMP 36.3; O2SAT 97
== END 2022-05-04 11:55 | disposition home or self-care (01) ==
PROVIDERS: Family Provider Physician Assistant; PCP Family Medicine; Referring Provider Surgery; Visit Provider Surgery
PROC: 0DJD8ZZ Inspection of Lower Intestinal Tract, Via Natural or Artificial Opening Endoscopic (ICD-10-PCS; CPT 45378; principal; 2022-05-04 11:00)
DX: Z12.11 Encounter for screening for malignant neoplasm of colon (principal); D12.0 Benign neoplasm of cecum
CPT/HCPCS: 45385; J2704; J3010

== ENCOUNTER → 2022-09-26 11:32 | Outpatient (CLI) | payer BC, OTHER, SELFPAY ==
--- NOTE | 2022-09-26 | DI.RAD.S_ITS ---
Bone Density Report Name: GIGI JAMES Age: 62 Sex: Female Ethnicity: White Date of : 1960 Indication: postmenopausal; screening for osteoporosis; Referring Provider: SIXTO MARTINO Study: Bone densitometry was performed. Exam Date: September 26, 2022 Accession number: [id number] Bone Density: Region BMD T-score Z-score Classification AP Spine(L1, L3, L4) 1.472 3.8 5.5 Normal Femoral Neck (Left) 0.909 0.5 2.0 Normal Total Hip (Left) 1.059 1.0 2.1 Normal Femoral Neck (Right) 0.854 0.0 1.5 Normal Total Hip (Right) 1.058 1.0 2.1 Normal Total Hip Mean 1.059 1.0 2.1 Normal World Health Organization criteria for BMD impression classify patients as: Normal (T-score at or above -1.0), Osteopenia (T-score between -1.0 and -2.5), or Osteoporosis (T-score at or below -2.5). 10-year Fracture Risk: FRAX not reported because: All T-scores for Spine Total, Hip Total, Femoral Neck at or above -1.0 Impression: The patient has normal bone mass. Discussion: BONE DENSITY IS ABOVE THE MINIMUM DESIRABLE LEVEL AT ALL SKELETAL SITES TESTED. This patient's bone mineral density is above the minimum desirable level (T-score -1.0 or better) at all sites measured. The patient should follow a healthful lifestyle (good nutrition with adequate calcium and vitamin D, and appropriate weight-bearing exercise). Follow-Up: Consider repeating this study in 5 years or sooner if there is some new clinical indication. Reported by: KANU CLARKE M.D. on 09/26/2022 12:08:00 PM.
== END ==
PROVIDERS: Family Provider Physician Assistant; PCP Family Medicine; Referring Provider Family Medicine; Visit Provider Family Medicine
DX: Z78.0 Asymptomatic menopausal state (principal); Z13.820 Encounter for screening for osteoporosis
CPT/HCPCS: 77080

== ENCOUNTER → 2023-07-19 09:20 | Outpatient (CLI) | payer MEDICARE, OTHER, SELFPAY ==
--- NOTE | 2023-07-19 | DI.MG.S_ITS ---
BILATERAL DIGITAL SCREENING MAMMOGRAM 3D/2D WITH CAD: 07/19/2023 CLINICAL: Routine screening. Comparison is made to exams dated: 01/26/2022 mammogram, 07/10/2020 mammogram, and 03/20/2019 mammogram - . Both breasts are almost entirely fatty (category a/<25% glandular tissue). Current study was also evaluated with a Computer Aided Detection (CAD) system. No significant masses, calcifications, or other findings are seen in either breast. There has been no significant interval change. IMPRESSION: NEGATIVE There is no mammographic evidence of malignancy. A 1 year screening mammogram is recommended. Based on the Tyrer Cuzick model (a risk assessment model) the patient's lifetime risk is 3.9% and her 10 year risk is 1.9%. According to the ACR, ACS, and NCCN guidelines, an annual breast MRI exam along with mammogram is recommended if the patient's lifetime risk is 20% or greater. This exam was interpreted at Station ID: [id number]. NOTE: For mammograms, a report in lay terms will be sent to the patient. Approximately 15% of breast malignancies will not be visualized mammographically. In the management of a palpable breast mass, a negative mammogram must not discourage biopsy of a clinically suspicious lesion. Electronically Signed By: Jerry mccabe/jeyson:07/20/2023 07:37:38 letter sent: Normal Exam ACR BI-RADS Category 1: Negative 3341F
== END ==
LOC: MAMMO 09:22
PROVIDERS: Family Provider Physician Assistant; PCP Nurse Practitioner Family; Referring Provider Nurse Practitioner Family; Visit Provider Nurse Practitioner Family
DX: Z12.31 Encounter for screening mammogram for malignant neoplasm of breast (principal)
CPT/HCPCS: 77063; 77067

== ENCOUNTER → 2024-04-21 13:18 | Outpatient (CLI) | payer MEDICARE, OTHER, SELFPAY | PROVIDERS: Family Provider Physician Assistant; PCP Nurse Practitioner Family; Visit Provider Surgery | DX: E11.621 Type 2 diabetes mellitus with foot ulcer (principal); E11.40 Type 2 diabetes mellitus with diabetic neuropathy, unspecified; L97.522 Non-pressure chronic ulcer of other part of left foot with fat layer exposed; L84 Corns and callosities; L53.9 Erythematous condition, unspecified; M20.42 Other hammer toe(s) (acquired), left foot | CPT/HCPCS: 11042; 87070; 87075; 87077; 87205; 99213; 99214 ==

== ENCOUNTER → 2024-04-21 14:47 | Outpatient (CLI) | payer MEDICARE, OTHER, SELFPAY ==
--- NOTE | 2024-04-21 14:49 | DI.RAD.S_ITS ---
PROCEDURE: XR FOOT LT MIN 3V INDICATIONS: Eval for osteo TECHNIQUE: 3 views of the foot were acquired. COMPARISON: [facility] [place], CR, XR FOOT 3 VIEWS WEIGHT BEARING BILATERAL, 04/22/2024, 8:30. [facility], CR, XR FOOT LT MIN 3V, 09/13/2021, 10:08. [facility], CR, XR FOOT LT MIN 3V, 06/08/2021, 15:27. FINDINGS: Bones: Postsurgical changes from amputation of the great toe at the metatarsophalangeal joint. No acute fractures or dislocations. No suspicious bony lesions. No radiographic signs of osteomyelitis. Small plantar calcaneal enthesophyte. Soft tissues: No suspicious soft tissue calcifications. IMPRESSION: 1. Postsurgical changes from prior amputation at the 1st metatarsophalangeal joint. 2. No radiographic signs of osteomyelitis. No acute osseous abnormality. Approved by: Al Bruce M.D. on 04/22/2024 at 8:38
== END ==
PROVIDERS: Family Provider Physician Assistant; PCP Nurse Practitioner Family; Referring Provider Surgery; Visit Provider Surgery
DX: E11.621 Type 2 diabetes mellitus with foot ulcer (principal); L97.522 Non-pressure chronic ulcer of other part of left foot with fat layer exposed; E11.40 Type 2 diabetes mellitus with diabetic neuropathy, unspecified; L84 Corns and callosities; L53.9 Erythematous condition, unspecified; M20.42 Other hammer toe(s) (acquired), left foot; Z89.412 Acquired absence of left great toe
CPT/HCPCS: 11042; 73630; 87070; 87075; 87077; 87205; 99213

== ENCOUNTER → 2024-04-28 10:16 | Outpatient (CLI) | payer MEDICARE, OTHER, SELFPAY | LOC: WC 10:17 | PROVIDERS: Family Provider Physician Assistant; PCP Nurse Practitioner Family; Visit Provider Surgery | DX: E11.621 Type 2 diabetes mellitus with foot ulcer (principal); E11.40 Type 2 diabetes mellitus with diabetic neuropathy, unspecified; L97.522 Non-pressure chronic ulcer of other part of left foot with fat layer exposed; L84 Corns and callosities; L53.9 Erythematous condition, unspecified; M20.42 Other hammer toe(s) (acquired), left foot | CPT/HCPCS: 11042 ==

== ENCOUNTER → 2024-05-05 13:19 | Outpatient (CLI) | payer MEDICARE, OTHER, SELFPAY | PROVIDERS: Family Provider Physician Assistant; PCP Nurse Practitioner Family; Visit Provider Surgery | DX: E11.621 Type 2 diabetes mellitus with foot ulcer (principal); E11.40 Type 2 diabetes mellitus with diabetic neuropathy, unspecified; L97.522 Non-pressure chronic ulcer of other part of left foot with fat layer exposed; L84 Corns and callosities; L53.9 Erythematous condition, unspecified; M20.42 Other hammer toe(s) (acquired), left foot | CPT/HCPCS: 11042 ==

== ENCOUNTER → 2024-05-12 13:13 | Outpatient (CLI) | payer MEDICARE, OTHER, SELFPAY | PROVIDERS: Family Provider Physician Assistant; PCP Nurse Practitioner Family; Visit Provider Surgery | DX: Z86.31 Personal history of diabetic foot ulcer (principal); E11.40 Type 2 diabetes mellitus with diabetic neuropathy, unspecified | CPT/HCPCS: 99212; 99213 ==

== ENCOUNTER → 2024-10-23 14:45 | Outpatient (CLI) | payer MEDICARE, OTHER, SELFPAY ==
--- NOTE | 2024-10-23 14:47 | DI.MG.S_ITS ---
MM screening mammo BI: 10/23/2024. BI-RADS: 1 CLINICAL: 64-year old female for bilateral screening mammogram. Tyrer-Cuzick lifetime risk of 5.2%. No personal or first-degree family history of breast cancer. PRIOR EXAMS 07/19/2023, 01/26/2022, 07/10/2020, 03/20/2019, 03/05/2018. MAMMOGRAPHY TECHNIQUE: 2D and 3D (tomosynthesis) digital mammographic views obtained, with additional images as needed for full coverage. Current study was also evaluated with a Computer Aided Detection (CAD) system. DENSITY B. There are scattered areas of fibroglandular density. MAMMOGRAPHY FINDINGS Bilateral: No suspicious mass, asymmetry, microcalcification, or other abnormality seen. IMPRESSION: * No evidence of malignancy. RECOMMENDATIONS Bilateral * Annual screening mammography. OVERALL ASSESSMENT CATEGORY BI-RADS-1: Negative. The [employer] recommends annual screening mammography beginning at age 40 for women with average risk of breast cancer. ELECTRONICALLY SIGNED: Wilfrido Li M.D. on 10/27/2024 at 02:26:22 PM PT Interpreting Station ID: [id number]
== END ==
PROVIDERS: Family Provider Physician Assistant
DX: Z12.31 Encounter for screening mammogram for malignant neoplasm of breast (principal)
CPT/HCPCS: 77063; 77067